=== PATIENT | female | born 1960 | race Caucasian/White ===

== ENCOUNTER 2017-02-28 17:53 | Inpatient (IN) | payer MEDICAID ==
[2017-02-28] MEDS ORDERED: Ondansetron 4 MG/2 ML SDV IVPUSH ONE ×2 (17:56→18:40)
[2017-02-28] MEDS ORDERED: HYDROmorphone 1 MG/ML Syringe IVPUSH ONE ×2 (17:56→18:40)
[2017-02-28] MEDS ORDERED: Sodium Chloride 0.9% 1,000 ML IV ONE ×3 (17:56→21:29)
[2017-02-28] MEDS ORDERED: Acetaminophen 500 MG Tab PO ONE (18:08)
[2017-02-28 18:35] LABS: CHLORIDE,CL 103 mmol/L (98-115); SODIUM,NA 141 mmol/L (136-145)
--- NOTE | 2017-02-28 18:36 | EDM.PDOC ---
ED HPI GENERAL MEDICAL PROBLEM - General Chief Complaint: Abdominal Pain Stated Complaint: nausea,vomiting,cramping Time Seen by Provider: 02/28/17 18:10 Source of Information: Reports: Patient, EMS History Limitations: Reports: Other (Patient's distress somewhat limits the H&P) - History of Present Illness INITIAL COMMENTS - FREE TEXT/NARRATIVE: Patient was fine this AM, then began to get abdominal pain and chills. Pain increased and is quite distressed with it on arrival. Pain located across upper abdomen. No bowel, bladder abnormalities. No CP, SOB. Fever of 102.7 axillary by EMS. Onset: Today, Gradual Duration: Hour(s): (8-10), Getting Worse Location: Reports: Abdomen Quality: Reports: Ache Severity: Severe Improves with: Reports: None Worsens with: Reports: None Associated Symptoms: Reports: Fever/Chills, Loss of Appetite, Nausea/Vomiting ( nausea, no vomiting). Denies: Cough, Headaches, Shortness of Breath Abdomen Pain Score (Numeric/FACES): 9 - Related Data Allergies Allergy/AdvReac Type Severity Reaction Status Date / Time sulfacetamide Allergy Vomiting Verified 02/28/17 18:29 [From Sulfamide] Home Meds: Home Meds Albuterol [Ventolin HFA] 2 puff INH Q2H PRN 02/28/17 [History] Allopurinol [Zyloprim] 450 mg PO DAILY 02/28/17 [History] Amoxicillin/Potassium Clav [Augmentin 875-125 Tablet] 1 each PO BID 02/28/17 [ History] Benzonatate [Tessalon Perles] 200 mg PO TID PRN 02/28/17 [History] DULoxetine HCl [Cymbalta] 60 mg PO DAILY 02/28/17 [History] Diclofenac Sodium [Voltaren] 75 mg PO BIDMEALS 02/28/17 [History] Gabapentin [Neurontin] 400 mg PO BEDTIME 02/28/17 [History] Hydroxychloroquine [Plaquenil] 200 mg PO BIDMEALS 02/28/17 [History] Losartan Potassium 50 mg PO DAILY 02/28/17 [History] Methotrexate 20 mg PO WEEKLY 02/28/17 [History] Ondansetron [Zofran] 4 mg PO Q6H PRN 02/28/17 [History] Pantoprazole Sodium [Protonix] 40 mg PO DAILY 02/28/17 [History] SitaGLIPtin [Januvia] 100 mg PO DAILY 02/28/17 [History] Thyroid,Pork [[place] Thyroid] 120 mg PO DAILY 02/28/17 [History] predniSONE [Prednisone] 2 mg PO DAILY 02/28/17 [History] predniSONE [Prednisone] 5 mg PO BIDMEALS 02/28/17 [History] tiZANidine HCl [Tizanidine HCl] 6 mg PO BEDTIME PRN 02/28/17 [History] traMADol [Ultram] 50 mg PO Q4H 02/28/17 [History] ED ROS GENERAL - Review of Systems Review Of Systems: See Below Constitutional: Reports: Fever, Chills HEENT: Reports: No Symptoms Respiratory: Reports: No Symptoms Cardiovascular: Reports: No Symptoms Endocrine: Reports: No Symptoms GI/Abdominal: Reports: Abdominal Pain, Decreased Appetite, Nausea : Reports: No Symptoms Musculoskeletal: Reports: No Symptoms Skin: Reports: No Symptoms Neurological: Reports: No Symptoms Psychiatric: Reports: No Symptoms Hematologic/Lymphatic: Reports: No Symptoms Immunologic: Reports: No Symptoms ED EXAM, GI/ABD - Physical Exam Exam: See Below Exam Limited By: Other (some limitations due to distress from symptoms) Eyes: Bilateral: Normal Appearance, EOMI Ears: Normal External Exam, Hearing Grossly Normal Nose: Normal Inspection, Normal Mucosa, No Blood Throat/Mouth: Normal Inspection, Normal Lips, Normal Oropharynx, No Airway Compromise Head: Atraumatic, Normocephalic Neck: Normal Inspection, Supple, Non-Tender, Full Range of Motion Respiratory/Chest: No Respiratory Distress, Lungs Clear, Normal Breath Sounds, No Accessory Muscle Use Cardiovascular: Normal Peripheral Pulses, Regular Rate, Rhythm, No Edema, No Murmur GI/Abdominal: Normal Bowel Sounds, Soft, No Organomegaly, No Distention, Tenderness (upper abdomen). No: Guarding, Rebound, Rigidity Back Exam: Normal Inspection, Full Range of Motion Extremities: Normal Capillary Refill, Increased Warmth (left leg), Redness ( left leg), Other (diabetic ulcer with necrosis on the instep of the left foot.) Neurological: Alert, Oriented, No Motor/Sensory Deficits Psychiatric: Other (distressed, moaning from pain) Skin Exam: Warm, Dry, Intact, Normal Color, No Rash Lymphatic: No Adenopathy Course - Vital Signs Last Recorded V/S: Last Vital Signs Temp 39.7 C H 02/28/17 18:30 Pulse 100 02/28/17 18:30 Resp 24 H 02/28/17 18:30 BP 130/49 L 02/28/17 18:30 Pulse Ox 95 02/28/17 18:30 - Orders/Labs/Meds Orders: Active Orders 24 hr Category Date Time Status Abdomen Pelvis wo Cont [CT] Stat Exams 02/28/17 17:56 Taken Chest 1V Frontal [CR] Stat Exams 02/28/17 18:46 Taken CULTURE BLOOD [BC] Stat Lab 02/28/17 18:05 Received CULTURE BLOOD [BC] Stat Lab 02/28/17 18:25 Received CULTURE WOUND [RM] Stat Lab 02/28/17 19:21 Uncollected Sodium Chloride 0.9% [Normal Saline] 1,000 ml Med 02/28/17 18:42 Active IV .BOLUS Blood Culture x2 Reflex Set [OM.PC] Stat Oth 02/28/17 17:56 Ordered Medication Orders Sodium Chloride (Normal Saline) 1,000 mls @ 999 mls/hr IV .BOLUS ONE Stop: 02/28/17 19:42 Labs: Laboratory Tests 02/28/17 02/28/17 02/28/17 Range/Units 18:05 18:05 18:05 WBC 11.3 H (5.0-10.0) 10^3/uL RBC 4.39 (3.80-5.50) 10^6/uL Hgb 13.2 (12.0-16.0) g/dL Hct 39.4 (37.0-47.0) % MCV 89.9 (82.0-92.0) fL MCH 30.2 (27.0-31.0) pg MCHC 33.6 (32.0-36.0) g/dL RDW 16.8 H (11.5-14.5) % Plt Count 211 (150-300) 10^3/uL MPV 8.2 (7.4-10.4) fL Neut % (Auto) 91.8 H (50.0-70.0) % Lymph % (Auto) 5.9 L (20.0-40.0) % Upson % (Auto) 1.6 L (2.0-8.0) % Eos % (Auto) 0.4 L (1.0-3.0) % Baso % (Auto) 0.3 (0.0-1.0) % Neut # (Auto) 10.4 H (2.5-7.0) 10^3/uL Lymph # (Auto) 0.7 L (1.0-4.0) 10^3/uL Upson # (Auto) 0.2 (0.1-0.8) 10^3/uL Eos # (Auto) 0.0 L (0.1-0.3) 10^3/uL Baso # (Auto) 0.0 (0.0-0.1) 10^3/uL Sodium 141 (136-145) mmol/L Potassium 3.1 L (3.3-5.3) mmol/L Chloride 103 (98-115) mmol/L Carbon Dioxide 26.9 (21.0-32.0) mmol/L BUN 17 (6-25) mg/dL Creatinine 0.82 (0.51-1.17) mg/dL Est Cr Clr Drug Dosing 63.37 mL/min Estimated GFR (MDRD) > 60 mL/min Glucose 128 H (70-110) mg/dL Lactic Acid 3.3 H (0.4-2.0) mmol/L Calcium 9.1 (8.7-10.3) mg/dL Total Bilirubin 0.7 (0.2-1.0) mg/dL AST 16 (15-37) U/L ALT 31 (12-78) U/L Alkaline Phosphatase 106 (46-116) IU/L Total Protein 6.6 (6.4-8.2) g/dL Albumin 3.56 (3.00-4.80) g/dL Lipase 171 (73-393) U/L Specimen Type Urine Color (YELLOW) Urine Appearance (CLEAR) Urine pH (5.0-9.0) Ur Specific [place] (1.005-1.030) Urine Protein (NEGATIVE) mg/dL Urine Glucose (UA) (NEGATIVE) mg/dL Urine Ketones (NEGATIVE) mg/dL Urine Occult Blood (NEGATIVE) Urine Nitrite (NEGATIVE) Urine Bilirubin (NEGATIVE) Urine Urobilinogen (0.2-1.0) E.U./dL Ur Leukocyte Esterase (NEGATIVE) Urine RBC /HPF Urine WBC /HPF Ur Epithelial Cells /LPF Amorphous Sediment (0/HPF) /HPF Urine Bacteria (NONE TO FEW) /HPF Urine Mucus (NEGATIVE) /LPF 02/28/17 Range/Units 18:50 WBC (5.0-10.0) 10^3/uL RBC (3.80-5.50) 10^6/uL Hgb (12.0-16.0) g/dL Hct (37.0-47.0) % MCV (82.0-92.0) fL MCH (27.0-31.0) pg MCHC (32.0-36.0) g/dL RDW (11.5-14.5) % Plt Count (150-300) 10^3/uL MPV (7.4-10.4) fL Neut % (Auto) (50.0-70.0) % Lymph % (Auto) (20.0-40.0) % Upson % (Auto) (2.0-8.0) % Eos % (Auto) (1.0-3.0) % Baso % (Auto) (0.0-1.0) % Neut # (Auto) (2.5-7.0) 10^3/uL Lymph # (Auto) (1.0-4.0) 10^3/uL Upson # (Auto) (0.1-0.8) 10^3/uL Eos # (Auto) (0.1-0.3) 10^3/uL Baso # (Auto) (0.0-0.1) 10^3/uL Sodium (136-145) mmol/L Potassium (3.3-5.3) mmol/L Chloride (98-115) mmol/L Carbon Dioxide (21.0-32.0) mmol/L BUN (6-25) mg/dL Creatinine (0.51-1.17) mg/dL Est Cr Clr Drug Dosing mL/min Estimated GFR (MDRD) mL/min Glucose (70-110) mg/dL Lactic Acid (0.4-2.0) mmol/L Calcium (8.7-10.3) mg/dL Total Bilirubin (0.2-1.0) mg/dL AST (15-37) U/L ALT (12-78) U/L Alkaline Phosphatase (46-116) IU/L Total Protein (6.4-8.2) g/dL Albumin (3.00-4.80) g/dL Lipase (73-393) U/L Specimen Type Urinfol Urine Color Yellow (YELLOW) Urine Appearance Clear (CLEAR) Urine pH 5.0 (5.0-9.0) Ur Specific [place]ili 1.010 (1.005-1.030) Urine Protein Negative (NEGATIVE) mg/dL Urine Glucose (UA) Negative (NEGATIVE) mg/dL Urine Ketones Negative (NEGATIVE) mg/dL Urine Occult Blood Negative (NEGATIVE) Urine Nitrite Negative (NEGATIVE) Urine Bilirubin Negative (NEGATIVE) Urine Urobilinogen 0.2 (0.2-1.0) E.U./dL Ur Leukocyte Esterase Negative (NEGATIVE) Urine RBC Not seen /HPF Urine WBC Not seen /HPF Ur Epithelial Cells Few /LPF Amorphous Sediment Few (0/HPF) /HPF Urine Bacteria Rare (NONE TO FEW) /HPF Urine Mucus Few H (NEGATIVE) /LPF Meds: Medications Generic Name Dose Route Start Last Admin Trade Name Freq PRN Reason Stop Dose Admin Sodium Chloride 1,000 mls @ 999 mls/hr 02/28/17 18:42 Normal Saline IV 02/28/17 19:42 .BOLUS ONE Discontinued Medications Generic Name Dose Route Start Last Admin Trade Name Freq PRN Reason Stop Dose Admin Acetaminophen 1,000 mg 02/28/17 18:08 02/28/17 18:10 Tylenol Extra Strength PO 02/28/17 18:09 1,000 mg ONETIME ONE Administration Hydromorphone HCl 1 mg 02/28/17 17:56 02/28/17 18:07 Dilaudid IVPUSH 02/28/17 17:57 1 mg ONETIME ONE Administration Hydromorphone HCl 0.5 mg 02/28/17 18:40 Dilaudid IVPUSH 02/28/17 18:41 ONETIME ONE Sodium Chloride 1,000 mls @ 999 mls/hr 02/28/17 17:56 02/28/17 18:23 Normal Saline IV 02/28/17 18:56 999 mls/hr .BOLUS ONE Administration Piperacillin/Tazobactam/ 50 mls @ 100 mls/hr 02/28/17 18:45 Dextrose 3.375 gm/ Premix IV 02/28/17 19:14 ONETIME ONE Ondansetron HCl 8 mg 02/28/17 17:56 02/28/17 18:07 Zofran IVPUSH 02/28/17 17:57 8 mg ONETIME ONE Administration Ondansetron HCl 4 mg 02/28/17 18:40 Zofran IVPUSH 02/28/17 18:41 ONETIME ONE - Re-Assessments/Exams Free Text/Narrative Re-Assessment/Exam: 02/28/17 18:44 Patient meets sepsis criteria. Continuing NS infusion to a total of 3800cc with in 3 hours Repeat lactic acid in 4 hours Blood cultures taken. Broad spectrum antibiotics begun Departure - Departure Time of Disposition: 19:22 Disposition: Admitted As Inpatient 66 Condition: Fair Clinical Impression: Cellulitis and abscess of left leg, Sepsis due to cellulitis Diabetic foot ulcer associated with type 2 diabetes mellitus Qualifiers: Diabetic foot ulcer location: midfoot Laterality: left Non-pressure ulcer stage : with fat layer exposed Qualified Code(s): E11.621 - Type 2 diabetes mellitus with foot ulcer; L97.422 - Non-pressure chronic ulcer of left heel and midfoot with fat layer exposed - Discharge Information Forms: ED Department Discharge - Problem List Review Problem List Initiated/Reviewed/Updated: No - My Orders Last 24 Hours: My Active Orders 02/28/17 17:56 Abdomen Pelvis wo Cont [CT] Stat Blood Culture x2 Reflex Set [OM.PC] Stat 02/28/17 18:05 CULTURE BLOOD [BC] Stat 02/28/17 18:25 CULTURE BLOOD [BC] Stat 02/28/17 18:42 Sodium Chloride 0.9% [Normal Saline] 1,000 ml IV .BOLUS 02/28/17 18:46 Chest 1V Frontal [CR] Stat 02/28/17 19:21 CULTURE WOUND [RM] Stat - Assessment/Plan Last 24 Hours: My Active Orders 02/28/17 17:56 Abdomen Pelvis wo Cont [CT] Stat Blood Culture x2 Reflex Set [OM.PC] Stat 02/28/17 18:05 CULTURE BLOOD [BC] Stat 02/28/17 18:25 CULTURE BLOOD [BC] Stat 02/28/17 18:42 Sodium Chloride 0.9% [Normal Saline] 1,000 ml IV .BOLUS 02/28/17 18:46 Chest 1V Frontal [CR] Stat 02/28/17 19:21 CULTURE WOUND [RM] Stat Assessment:: 1. left diabetic foot ulcer 2. Left leg cellulitis due to foot ulcer. Do NOT feel there is any necrotizing fascitis due to the lack of pain in the leg (no significant neuropathy) 3. Sepsis from cellulitis (lactic acid 3.3) 4. Abdominal pain, Nausea from sepsis Plan: 1. Admit for IV antibiotics and sepsis treatment 2. Fluid at 30cc/kg and boluses per lactic acid 3. Broad spectrum antibiotics, culture wound and blood 4. Monitor for hypotension not responsive to fluids - would then transfer to ICU care.
[2017-02-28] MEDS ORDERED: Piperacillin/Tazobactam/Dext 3.375 GM in Premix Bag 1 BAG IV ONE (18:45)
[2017-02-28] MEDS ORDERED: TIZANIDINE HCL 6 MG PO PRN (19:45)
[2017-02-28] MEDS ORDERED: Benzonatate 100 MG Cap PO PRN (19:45)
[2017-02-28] MEDS ORDERED: GABAPENTIN 400 MG PO SCH (21:00)
[2017-02-28] MEDS ORDERED: Sodium Chloride 0.9% 500 ML ONE (21:11)
[2017-02-28] MEDS: Albuterol HFA 18 Gm Inhaler INH PRN (21:13)
[2017-02-28] MEDS: traMADol 50 MG Tab PO SCH (21:14)
[2017-02-28] MEDS: Ondansetron 4 MG/2 ML SDV IVPUSH PRN (21:16)
[2017-02-28] MEDS: HYDROmorphone 1 MG/ML Syringe IVPUSH PRN (21:45)
[2017-03-01] MEDS: traMADol 50 MG Tab PO SCH ×4 (00:20→11:35)
[2017-03-01] MEDS: HYDROmorphone 1 MG/ML Syringe IVPUSH PRN ×2 (02:09→22:08)
[2017-03-01] MEDS: Piperacillin/Tazobactam/Dext 3.375 GM in Premix Bag 1 BAG IV SCH ×4 (02:09→21:17)
[2017-03-01] MEDS: Albuterol HFA 18 Gm Inhaler INH PRN ×2 (02:17→16:29)
[2017-03-01] MEDS ORDERED: Diclofenac Sodium 75 MG Tab.EC PO SCH (08:00)
[2017-03-01] MEDS: Hydroxychloroquine 200 MG Tab PO SCH ×2 (08:38→17:31)
[2017-03-01] MEDS: predniSONE 5 MG Tab PO SCH ×2 (08:38→17:32)
[2017-03-01] MEDS: predniSONE 1 MG Tab PO SCH (08:38)
[2017-03-01] MEDS: Pantoprazole 40 MG Tab.CR PO SCH (08:39)
[2017-03-01] MEDS: Losartan 50 MG Tab PO SCH (08:41)
[2017-03-01] MEDS ORDERED: DULOXETINE HCL 60 MG PO SCH (09:00)
[2017-03-01] MEDS ORDERED: ALLOPURINOL PO SCH (09:00)
[2017-03-01] MEDS ORDERED: THYROID PORK 120 MG PO SCH (09:00)
[2017-03-01] MEDS ORDERED: Non-Formulary Medication 1 Each (Sitagliptin [Januvia] 100 MG) PO SCH (09:00)
[2017-03-01] MEDS: Allopurinol 100 MG Tab PO SCH (09:16)
[2017-03-01] MEDS: DULoxetine 30 MG Cap PO SCH (09:16)
[2017-03-01] MEDS: Ondansetron 4 MG/2 ML SDV IVPUSH PRN ×2 (10:25→18:09)
[2017-03-01] MEDS: ARMOUR THYROID 120 MG PO SCH (10:42)
[2017-03-01] MEDS: DICLOFENAC SODIUM 75 MG PO SCH ×2 (10:42→17:32)
[2017-03-01] MEDS: Sodium Chloride 0.45% 1,000 ML IV SCH ×2 (10:43→19:38)
[2017-03-01] MEDS: Carboxymethylcellulose Sodium 0.5% Ophth Soln 15 ML Bottle EYEBOTH SCH ×3 (13:35→21:23)
[2017-03-01] MEDS: Acetaminophen 325 MG Tab PO PRN (17:32)
[2017-03-01] MEDS: traMADol 50 MG Tab PO PRN (19:00)
[2017-03-01] MEDS ORDERED: Ondansetron 4 MG/2 ML SDV IVPUSH ONE (20:27)
[2017-03-01] MEDS: tiZANidine 4 MG Tab PO SCH (21:22)
[2017-03-01] MEDS: Gabapentin 100 MG Cap PO SCH (21:22)
[2017-03-01] MEDS: Latanoprost 0.005% Ophth Soln 2.5 ML Bottle EYEBOTH SCH (21:28)
--- NOTE | 2017-03-01 21:31 | HP ---
PATIENT PROFILE: This is a 56-year-old female, who resides in the community of [place]. CHIEF COMPLAINT: Redness and warmth in the left lower leg, accompanied by chills. HISTORY OF PRESENT ILLNESS: This is a 56-year-old female, who presented to the emergency room yesterday afternoon with abdominal pain and chills. The pain increased and was quite distressed on arrival to the emergency room. She was found to have a left foot ulcer located on the medial aspect of her left foot in the arch, associated with diabetes mellitus type 2. There is also cellulitis of the left leg. There was also concern for sepsis due to cellulitis. She was admitted to the hospital and prescribed IV fluids, Zosyn, and vancomycin. Wound and blood cultures are pending. She was somewhat hypotensive in the emergency room, but this has corrected with IV fluids. PAST MEDICAL HISTORY: Includes: 1. Gout for which she is taking allopurinol. 2. She has a history of depression for which she is taking Cymbalta. 3. She has a history of diabetes for which she is taking Januvia. 4. She has a diabetic neuropathy for which she is taking Neurontin. 5. She has a history of fibromyalgia for which she is taking Cymbalta also in addition to depression. 6. She has a history of rheumatoid arthritis for which she is taking Plaquenil. She is also on daily dosing of prednisone. 7. She has a history of GERD for which she is taking pantoprazole. 8. She has a history of hypertension for which she is taking losartan. She has tramadol for pain relief. PAST SURGICAL HISTORY: . 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 She is concerned about missing work, however, is unable to work due to her hospitalization. MEDICATIONS: Are outlined in the HPI in addition to the listed medications and corresponding diagnosis, she is also on Augmentin 875 mg one p.o. b.i.d., Tessalon Perles p.r.n. for cough, diclofenac b.i.d., and tizanidine. ALLERGIES: . REVIEW OF SYSTEMS: CONSTITUTIONAL: She has had chills and a fever. HEENT: She denies any headache. No dysphagia. CARDIOVASCULAR: No chest pain or palpitations. RESPIRATORY: No shortness of breath, dyspnea, or orthopnea. GI: She did present with abdominal pain. No nausea, vomiting, diarrhea, or constipation. : No dysuria, hematuria, or urinary frequency. MUSCULOSKELETAL: She does have a history of fibromyalgia and has chronic pain associated with it as well as rheumatoid arthritis. INTEGUMENTARY: No jaundice, rashes, or lesions. NEUROLOGIC/PSYCHIATRIC: No syncope or paresthesias. ENDOCRINE: She has a history of diabetes mellitus. She denies any heat or cold intolerance. HEMATOLOGIC/LYMPHATIC: No anemia or easy bruising. ALLERGIC/IMMUNOLOGIC: No hives or recurrent infections. DERMATOLOGIC: She has a foot ulcer on the medial aspect of her left foot with cellulitis to the left lower extremity. PHYSICAL EXAMINATION: VITAL SIGNS: Temperature is 39.7 degrees Celsius, pulse 100, respirations 24, blood pressure 130/49, O2 saturation is 95%. SKIN: Warm and dry to touch. Somewhat warm. She does have a foot ulcer on the arch of her left foot, which measures approximately 3 cm in diameter. This is most likely the portal of entry for the cellulitis on the left lower leg, which seems to be receding according to the demarcation on the left lower extremity. HEENT: Head is normocephalic. Facies are symmetrical. External ear canals are clear. Tympanic membranes are pearly joyce. Eyes: PERRLA. Extraocular movements are intact. Visual bee are full. Nasal mucosa is pink and moist. There is no erythema or exudate in the posterior pharynx. NECK: Supple. There is no cervical lymphadenopathy. No jugular vein distention. No carotid bruits. LUNGS: Clear. No rales, wheezes, or rhonchi auscultated. CARDIAC: Reveals S1, S2 to be normal. Rate and rhythm are regular. No murmur, click, or gallop is auscultated. ABDOMEN: Soft, somewhat tender in the left lower quadrant possibly associated with left inguinal lymphadenopathy secondary to the cellulitis. EXTREMITIES: She moves all extremities with equal strength. There is a swelling of the right lower extremity. NEUROLOGIC: She is intact. She is alert and oriented to time, place, person, and self. Cranial nerves 2 through 12 are intact. Sensory, motor, and cerebellar function testing is deferred at this time. IMPRESSION: Diabetic foot ulcer associated with diabetes mellitus type 2. Left lower extremity approximately 3 cm in diameter with cellulitis of the left lower extremity, concern for sepsis. Lab results showed a white count of 11.3. Blood and wound cultures are pending. Sodium was 141, potassium was 3.1 and corrected itself to 3.3, without supplementation. BUN and creatinine on 17 and 0.82 respectively. GFR is greater than 60. The remainder of the CMP was within normal limits. Her lactic acid was 3.3 which is high, this did correct to 2.0 after IV hydration. UA was basically normal. We will continue her on vancomycin and Zosyn. The left leg will be soaked every 8 hours in Betadine wraps solution. We will continue all of her other same medications as ordered. She does have a quite complicated medical history that is definitely contributing factor for her hospitalization. I have spoken with Maria Esther Castillo, her primary care provider and attending physician, and she is aware of the patient's condition and her presence in the hospital. /[id number]/MODL
[2017-03-02] MEDS: Piperacillin/Tazobactam/Dext 3.375 GM in Premix Bag 1 BAG IV SCH ×4 (02:05→19:41)
[2017-03-02] MEDS: Albuterol HFA 18 Gm Inhaler INH PRN ×2 (04:15→19:37)
[2017-03-02] MEDS: Sodium Chloride 0.45% 1,000 ML IV SCH ×2 (06:04→16:35)
[2017-03-02] MEDS ORDERED: Atropine 0.1 MG/ML 10 ML Syringe IVPUSH PRN (08:53)
[2017-03-02] MEDS ORDERED: Lidocaine 2% 100 MG/5 ML Syringe IVPUSH PRN (08:53)
[2017-03-02] MEDS ORDERED: Nitroglycerin 0.4 MG Tab.SL SL PRN (08:53)
[2017-03-02] MEDS ORDERED: EPINEPHrine 1:10,000 1 MG/10 ML Syringe IVPUSH PRN (08:53)
[2017-03-02] MEDS: Allopurinol 100 MG Tab PO SCH (08:59)
[2017-03-02] MEDS: Carboxymethylcellulose Sodium 0.5% Ophth Soln 15 ML Bottle EYEBOTH SCH ×4 (09:00→20:21)
[2017-03-02] MEDS: Pantoprazole 40 MG Tab.CR PO SCH (09:01)
[2017-03-02] MEDS: ARMOUR THYROID 120 MG PO SCH (09:01)
[2017-03-02] MEDS: predniSONE 1 MG Tab PO SCH (09:01)
[2017-03-02] MEDS: DULoxetine 30 MG Cap PO SCH (09:01)
[2017-03-02] MEDS: Hydroxychloroquine 200 MG Tab PO SCH ×2 (09:02→17:39)
[2017-03-02] MEDS: Losartan 50 MG Tab PO SCH (09:02)
[2017-03-02] MEDS: predniSONE 5 MG Tab PO SCH ×2 (09:02→17:39)
[2017-03-02] MEDS: DICLOFENAC SODIUM 75 MG PO SCH ×2 (09:02→17:39)
--- NOTE | 2017-03-02 11:37 | HP ---
ADDENDUM: Addition to the H and P. ALLERGIES: Include sulfa. PAST SURGICAL HISTORY: Includes a hysterectomy with BSO, left foot surgery, two cerclages, and tonsillectomy. /[id number]/MODL
--- NOTE | 2017-03-02 12:52 | PN ---
03/02/2017PATIENT NAME: CAROLYN LUJAN This is a 56-year-old female, who was admitted to the hospital yesterday with a diabetic foot ulcer on the arch of her left foot with associated cellulitis and concern for sepsis. On admission, her white blood cell count was 11.3 and increased to 13.0. Today, her white count has improved to 9.7. Her admission hemoglobin was 13.2 and has declined to 10.2. We will add iron studies onto her lab work today. Potassium initially was low at 3.1. This has normalized at 3.5 without supplementation. BUN and creatinine 21 and 1.05 with a GFR of 54. She has hypocalcemia with a serum calcium of 8.2. Her albumin is low at 2.15. Corrected calcium is 9.68. She has been afebrile since admission. Her chief complaint today is that of nausea. She does have a p.r.n. dosing for Zofran. She has not been up and about and needs to be more ambulatory. She reports she gets nauseated when she moves around. There was concern last evening by one of the nurses caring for the patient that she had a coolness and pallor of the left foot. Dorsalis pedis and posterior tibial pulses are intact. A warm pack was applied to the foot and this has improved. PHYSICAL EXAMINATION: VITAL SIGNS: Temp is 98.3, pulse is 92, respirations 20, blood pressure 110/55, with an entry this morning at 6 o'clock for blood pressure of 90/42. Oxygen saturation 97% on 2 L of oxygen. CARDIAC: Reveals S1 and S2 to be normal. Rate and rhythm are regular. No murmur, click, or gallop is auscultated. LUNGS: Clear. EXTREMITIES: Examination of the left lower extremity, she does have a 3 cm raised diabetic foot ulcer on the arch of her left foot medial aspect. There is erythema of the ankle. This is receded since yesterday where it is marked just below the knee. There is pallor of the left foot as well, however, it is warm to touch. Dorsalis pedis and posterior tibial pulses are intact to the left foot. IMPRESSION: 1. Diabetic foot ulcer with associated cellulitis and concern for sepsis. She is covered with vancomycin as well as Zosyn. Initial blood cultures grew gram-positive cocci. Sensitivities are pending. She does seem to be improving. 2. Immobility. This will complicate her discharge if she is not more ambulatory. I did stress to her the importance of getting out of bed moving around. She states she is nauseated. We will try to manage her nausea, so she can be more mobile. PT consultation. 3. Anemia, etiology unclear. We will add iron studies to the lab work that was drawn this morning. We will continue to monitor closely and she will be evaluated in the morning by Dr. Maria Esther Park. 4. DVT prophylaxis is addressed to day. Lovenox will be initiated. /[id number]/MODL MTDD
[2017-03-02] MEDS ORDERED: Enoxaparin 40 MG/0.4 ML Syringe SUBCUT SCH (15:00)
[2017-03-02] MEDS: Acetaminophen 325 MG Tab PO PRN (19:38)
[2017-03-02] MEDS: Enoxaparin 40 MG/0.4 ML Syringe SUBCUT SCH (20:22)
[2017-03-02] MEDS: Latanoprost 0.005% Ophth Soln 2.5 ML Bottle EYEBOTH SCH (20:22)
[2017-03-02] MEDS: Gabapentin 100 MG Cap PO SCH (20:22)
[2017-03-02] MEDS: tiZANidine 4 MG Tab PO SCH (20:22)
[2017-03-03] MEDS: Sodium Chloride 0.45% 1,000 ML IV SCH (01:04)
[2017-03-03] MEDS: Piperacillin/Tazobactam/Dext 3.375 GM in Premix Bag 1 BAG IV SCH ×2 (01:05→07:54)
[2017-03-03] MEDS: predniSONE 5 MG Tab PO SCH ×2 (07:57→17:48)
[2017-03-03] MEDS: Hydroxychloroquine 200 MG Tab PO SCH ×2 (07:57→17:48)
[2017-03-03] MEDS: DICLOFENAC SODIUM 75 MG PO SCH ×2 (07:58→17:49)
[2017-03-03] MEDS: DULoxetine 30 MG Cap PO SCH (07:59)
[2017-03-03] MEDS: Losartan 50 MG Tab PO SCH (07:59)
[2017-03-03] MEDS: Enoxaparin 40 MG/0.4 ML Syringe SUBCUT SCH ×2 (08:00→20:46)
[2017-03-03] MEDS: predniSONE 1 MG Tab PO SCH (08:00)
[2017-03-03] MEDS: ARMOUR THYROID 120 MG PO SCH (08:01)
[2017-03-03] MEDS: Allopurinol 100 MG Tab PO SCH (08:01)
[2017-03-03] MEDS: Carboxymethylcellulose Sodium 0.5% Ophth Soln 15 ML Bottle EYEBOTH SCH ×4 (08:01→20:45)
[2017-03-03] MEDS: Pantoprazole 40 MG Tab.CR PO SCH (08:01)
--- NOTE | 2017-03-03 08:57 | PCM.PN ---
- General Info Date of Service: 03/03/17 - Review of Systems Systems Review Comment:: Slime was admitted inpatient on 02/28/17 with LLE cellulitis and criteria meeting sepsis. She was started on vancomycin and zosyn. She has a left foot wound, chronic, that she has treated by podiatry at [facility] in [place], [place] but she does not follow the weight bearing restrictions and so this has not healed. Blood cultures were coag neg staph on aerobic only, anaerobic with no growth. Wound culture heavy growth of MSSA. She states the swelling and redness in her leg is better. She has been ambulatory to the bathroom. She states her appetite is better today. - Patient Data Vitals - most recent: Last Vital Signs Temp 96.5 F 03/03/17 06:44 Pulse 68 03/03/17 06:44 Resp 22 H 03/03/17 06:44 BP 115/60 03/03/17 07:59 Pulse Ox 97 03/03/17 06:44 Weight - most recent: 277 lb 12.8 oz I&O - last 24 hours: Intake & Output 03/02/17 03/03/17 03/03/17 22:59 06:59 14:59 Intake Total 1799 1280 Output Total 1300 300 Balance 499 980 Lab Results last 24 hrs: Laboratory Results - last 24 hr 03/02/17 03/02/17 03/02/17 Range/Units 06:50 09:30 17:36 WBC (5.0-10.0) 10^3/uL RBC (3.80-5.50) 10^6/uL Hgb (12.0-16.0) g/dL Hct (37.0-47.0) % MCV (82.0-92.0) fL MCH (27.0-31.0) pg MCHC (32.0-36.0) g/dL RDW (11.5-14.5) % Plt Count (150-300) 10^3/uL MPV (7.4-10.4) fL Neut % (Auto) (50.0-70.0) % Lymph % (Auto) (20.0-40.0) % [place] % (Auto) (2.0-8.0) % Eos % (Auto) (1.0-3.0) % Baso % (Auto) (0.0-1.0) % Neut # (Auto) (2.5-7.0) 10^3/uL Lymph # (Auto) (1.0-4.0) 10^3/uL [place] # (Auto) (0.1-0.8) 10^3/uL Eos # (Auto) (0.1-0.3) 10^3/uL Baso # (Auto) (0.0-0.1) 10^3/uL Sodium (136-145) mmol/L Potassium (3.3-5.3) mmol/L Chloride (98-115) mmol/L Carbon Dioxide (21.0-32.0) mmol/L BUN (6-25) mg/dL Creatinine 1.02 (0.51-1.17) mg/dL Est Cr Clr Drug Dosing 53.18 mL/min Estimated GFR (MDRD) 56 mL/min Glucose (70-110) mg/dL POC Glucose 150 H (74-106) mg/dl Calcium (8.7-10.3) mg/dL Iron <10 L (35-145) ug/dL TIBC N/a H (261-478) ug/dL Transferrin % Sat N/a H (20.0-50.0) % Ferritin 169 (11-307) ng/mL Total Bilirubin (0.2-1.0) mg/dL AST (15-37) U/L ALT (12-78) U/L Alkaline Phosphatase (46-116) IU/L Total Protein (6.4-8.2) g/dL Albumin (3.00-4.80) g/dL Vancomycin Trough 14.1 (10-20) ug/mL 03/03/17 03/03/17 03/03/17 Range/Units 06:05 07:10 07:10 WBC 7.7 (5.0-10.0) 10^3/uL RBC 3.47 L (3.80-5.50) 10^6/uL Hgb 10.1 L (12.0-16.0) g/dL Hct 31.2 L (37.0-47.0) % MCV 89.9 (82.0-92.0) fL MCH 29.2 (27.0-31.0) pg MCHC 32.5 (32.0-36.0) g/dL RDW 16.8 H (11.5-14.5) % Plt Count 144 L (150-300) 10^3/uL MPV 8.2 (7.4-10.4) fL Neut % (Auto) 87.3 H (50.0-70.0) % Lymph % (Auto) 7.4 L (20.0-40.0) % [place] % (Auto) 4.0 (2.0-8.0) % Eos % (Auto) 1.0 (1.0-3.0) % Baso % (Auto) 0.3 (0.0-1.0) % Neut # (Auto) 6.7 (2.5-7.0) 10^3/uL Lymph # (Auto) 0.6 L (1.0-4.0) 10^3/uL [place] # (Auto) 0.3 (0.1-0.8) 10^3/uL Eos # (Auto) 0.1 (0.1-0.3) 10^3/uL Baso # (Auto) 0.0 (0.0-0.1) 10^3/uL Sodium 139 (136-145) mmol/L Potassium 4.1 (3.3-5.3) mmol/L Chloride 106 (98-115) mmol/L Carbon Dioxide 25.9 (21.0-32.0) mmol/L BUN 18 (6-25) mg/dL Creatinine 1.00 (0.51-1.17) mg/dL Est Cr Clr Drug Dosing 54.24 mL/min Estimated GFR (MDRD) 57 mL/min Glucose 114 H (70-110) mg/dL POC Glucose 116 H (74-106) mg/dl Calcium 8.3 L (8.7-10.3) mg/dL Iron (35-145) ug/dL TIBC (261-478) ug/dL Transferrin % Sat (20.0-50.0) % Ferritin (11-307) ng/mL Total Bilirubin 0.4 (0.2-1.0) mg/dL AST 20 (15-37) U/L ALT 26 (12-78) U/L Alkaline Phosphatase 82 (46-116) IU/L Total Protein 5.5 L (6.4-8.2) g/dL Albumin 2.21 L (3.00-4.80) g/dL Vancomycin Trough (10-20) ug/mL Med Orders - Current: Current Medications Acetaminophen (Tylenol) 650 mg PO Q6H PRN PRN Reason: Pain Last Admin: 03/02/17 19:38 Dose: 650 mg Albuterol (Ventolin Hfa) 0 gm INH Q2H PRN PRN Reason: Shortness of Breath Last Admin: 03/02/17 19:37 Dose: 2 inhalation Allopurinol (Zyloprim) 450 mg PO DAILY [facility] Last Admin: 03/03/17 08:01 Dose: 450 mg Artificial Tears (Refresh Tears 0.5%) 1 ml EYEBOTH QID [facility] Last Admin: 03/03/17 08:01 Dose: 1 drop Benzonatate (Tessalon Perles) 200 mg PO TID PRN PRN Reason: Cough Duloxetine HCl (Cymbalta) 60 mg PO DAILY [facility] Last Admin: 03/03/17 07:59 Dose: 60 mg Enoxaparin Sodium (Lovenox) 40 mg SUBCUT Q12H [facility] Last Admin: 03/03/17 08:00 Dose: 40 mg Gabapentin (Neurontin) 400 mg PO BEDTIME [facility] Last Admin: 03/02/17 20:22 Dose: 400 mg Hydroxychloroquine Sulfate (Plaquenil) 200 mg PO BIDMEALS [facility] Last Admin: 03/03/17 07:57 Dose: 200 mg Levofloxacin/Dextrose 500 mg/ (Premix) 100 mls @ 100 mls/hr IV Q24H [facility] Latanoprost (Xalatan 0.005% Ophth Soln) 0 ml EYEBOTH BEDTIME [facility] Last Admin: 03/02/17 20:22 Dose: 1 drop Losartan Potassium (Cozaar) 50 mg PO DAILY [facility] Last Admin: 03/03/17 07:59 Dose: 50 mg Ondansetron HCl (Zofran) 4 mg IVPUSH Q4H PRN PRN Reason: Nausea/Vomiting Last Admin: 03/01/17 18:09 Dose: 4 mg Pantoprazole Sodium (Protonix) 40 mg PO DAILY [facility] Last Admin: 03/03/17 08:01 Dose: 40 mg Ptom [place] (Thyroid 120mg Tablet) 1 each PO DAILY [facility] Last Admin: 03/03/17 08:01 Dose: 1 each Ptom Diclofenac (Sodium 75mg Tablet) 1 each PO BIDMEALS [facility] Last Admin: 03/03/17 07:58 Dose: 1 each Prednisone (Prednisone) 5 mg PO BIDMEALS [facility] Last Admin: 03/03/17 07:57 Dose: 5 mg Prednisone (Prednisone) 2 mg PO DAILY [facility] Last Admin: 03/03/17 08:00 Dose: 2 mg Sitagliptin Phosphate (Januvia) 50 mg PO DAILY [facility] Last Admin: 03/03/17 07:59 Dose: 50 mg Tizanidine HCl (Zanaflex) 6 mg PO BEDTIME [facility] Last Admin: 03/02/17 20:22 Dose: 6 mg Tramadol HCl (Ultram) 50 mg PO Q4H PRN PRN Reason: Pain Last Admin: 03/01/17 19:00 Dose: 50 mg Discontinued Medications Acetaminophen (Tylenol Extra Strength) 1,000 mg PO ONETIME ONE Stop: 02/28/17 18:09 Last Admin: 02/28/17 18:10 Dose: 1,000 mg Atropine Sulfate (Atropine 0.1 Mg/Ml) 0 mg IVPUSH ASDIRECTED PRN PRN Reason: Heart Diclofenac Sodium (Voltaren) 75 mg PO BIDMEALS [facility] Last Admin: 03/01/17 10:31 Dose: Not Given Enoxaparin Sodium (Lovenox) 40 mg SUBCUT Q12H [facility] Last Admin: 03/02/17 16:15 Dose: 40 mg Epinephrine HCl (Epinephrine 1:10,000) 1 mg IVPUSH ASDIRECTED PRN PRN Reason: Heart Hydromorphone HCl (Dilaudid) 1 mg IVPUSH ONETIME ONE Stop: 02/28/17 17:57 Last Admin: 02/28/17 18:07 Dose: 1 mg Hydromorphone HCl (Dilaudid) 0.5 mg IVPUSH ONETIME ONE Stop: 02/28/17 18:41 Last Admin: 02/28/17 21:47 Dose: Not Given Hydromorphone HCl (Dilaudid) 1 mg IVPUSH Q4H PRN PRN Reason: Pain Last Admin: 03/01/17 22:08 Dose: 1 mg Sodium Chloride (Normal Saline) 1,000 mls @ 999 mls/hr IV .BOLUS ONE Stop: 02/28/17 18:56 Last Admin: 02/28/17 18:23 Dose: 999 mls/hr Sodium Chloride (Normal Saline) 1,000 mls @ 999 mls/hr IV .BOLUS ONE Stop: 02/28/17 19:42 Last Admin: 02/28/17 19:42 Dose: 999 mls/hr Piperacillin/Tazobactam/ (Dextrose 3.375 gm/ Premix) 50 mls @ 100 mls/hr IV ONETIME ONE Stop: 02/28/17 19:14 Last Admin: 02/28/17 19:28 Dose: 100 mls/hr Piperacillin/Tazobactam/ (Dextrose 3.375 gm/ Premix) 50 mls @ 100 mls/hr IV Q6H [facility] Last Admin: 03/03/17 07:54 Dose: 100 mls/hr Vancomycin HCl 1.25 gm/ Sodium (Chloride) 250 mls @ 167 mls/hr IV Q24H [facility] Last Admin: 02/28/17 22:25 Dose: 167 mls/hr Sodium Chloride (Normal Saline) Confirm Administered Dose 500 mls @ as directed .ROUTE .STK-MED ONE Stop: 02/28/17 21:12 Last Admin: 02/28/17 21:20 Dose: Not Given Sodium Chloride (Normal Saline) 1,000 mls @ 999 mls/hr IV .BOLUS ONE Stop: 02/28/17 22:29 Last Admin: 02/28/17 21:50 Dose: 999 mls/hr Sodium Chloride (Sodium Chloride 0.45%) 1,000 mls @ 150 mls/hr IV ASDIRECTED [facility] Last Admin: 03/03/17 01:04 Dose: 150 mls/hr Vancomycin HCl 1.25 gm/ Sodium (Chloride) 250 mls @ 167 mls/hr IV Q12H [facility] Last Admin: 03/01/17 11:32 Dose: 167 mls/hr Vancomycin HCl 1.25 gm/ Sodium (Chloride) 250 mls @ 167 mls/hr IV Q12H [facility] Vancomycin HCl 1.25 gm/ Sodium (Chloride) 250 mls @ 167 mls/hr IV Q12H [facility] Last Admin: 03/02/17 22:06 Dose: 167 mls/hr Lidocaine HCl (Xylocaine 2%) 0 mg IVPUSH ASDIRECTED PRN PRN Reason: Heart Nitroglycerin (Nitrostat) 0.4 mg SL ASDIRECTED PRN PRN Reason: Heart Non-Formulary Medication (Allopurinol [Zyloprim]) 450 mg PO DAILY [facility] Non-Formulary Medication (Duloxetine Hcl [Cymbalta]) 60 mg PO DAILY [facility] Non-Formulary Medication (Gabapentin [Neurontin]) 400 mg PO BEDTIME [facility] Last Admin: 02/28/17 22:30 Dose: Not Given Non-Formulary Medication (Sitagliptin [Januvia]) 100 mg PO DAILY [facility] Non-Formulary Medication (Thyroid,Pork [[place] Thyroid]) 120 mg PO DAILY [facility] Non-Formulary Medication (Tizanidine Hcl [Tizanidine Hcl]) 6 mg PO BEDTIME PRN PRN Reason: Muscle Spasm Ondansetron HCl (Zofran) 8 mg IVPUSH ONETIME ONE Stop: 02/28/17 17:57 Last Admin: 02/28/17 18:07 Dose: 8 mg Ondansetron HCl (Zofran) 4 mg IVPUSH ONETIME ONE Stop: 02/28/17 18:41 Last Admin: 02/28/17 19:29 Dose: 4 mg Ondansetron HCl (Zofran) 4 mg IVPUSH ONETIME ONE Stop: 03/01/17 20:28 Last Admin: 03/01/17 21:16 Dose: 4 mg Tramadol HCl (Ultram) 50 mg PO Q4H [facility] Last Admin: 03/01/17 11:35 Dose: Not Given Vancomycin HCl (Pharmacy To Dose - Vancomycin) 0 dose .XX ASDIRECTED [facility] - Exam General: alert, oriented, cooperative, no acute distress Lungs: Clear to auscultation, Normal respiratory effort Cardiovascular: Regular Rate, Regular Rhythm, No Murmurs Abdomen: bowel sounds present Extremities: edema, other (Left lower extremity has some residual erythema that is reportedly very improved from admission. She also has a ulceration on her left foot, no evidence of purulent drainage from this area.) - Problem List & Annotations (1) Cellulitis and abscess of left leg SNOMED Code(s): 739734386 Code(s): L03.116 - CELLULITIS OF LEFT LOWER LIMB; L02.416 - CUTANEOUS ABSCESS OF LEFT LOWER LIMB Status: Acute Current Visit: Yes (2) Diabetic foot ulcer associated with type 2 diabetes mellitus SNOMED Code(s): 365638927 Code(s): E11.621 - TYPE 2 DIABETES MELLITUS WITH FOOT ULCER; L97.509 - NON- PRESSURE CHRONIC ULCER OTH PRT UNSP FOOT W UNSP SEVERITY Status: Acute Current Visit: Yes Qualifiers: Diabetic foot ulcer location: midfoot Laterality: left Non-pressure ulcer stage: with fat layer exposed Qualified Code(s): E11.621 - Type 2 diabetes mellitus with foot ulcer; L97.422 - Non-pressure chronic ulcer of left heel and midfoot with fat layer exposed - Problem List Review Problem List Initiated/Reviewed/Updated: Yes - My Orders Last 24 Hours: My Active Orders 03/02/17 19:32 Cardiac Monitoring Discontinue [RC] Click To Edit 03/03/17 09:00 Levofloxacin/Dextrose 5%-Water [Levaquin in D5W 500 MG/100 ML] 500 mg Premix Bag 1 bag IV Q24H 03/03/17 21:30 VANCOMYCIN TROUGH [CHEM] Routine - Plan Plan:: Based on culture results will switch to levofloxacin 500 mg IV through the weekend. If continued improvement then will discharge to home on Monday () with follow-up with podiatry and antibiotics to complete a 14 day course. She is in agreement with this plan of care.
[2017-03-03] MEDS: Levofloxacin/Dextrose 5%-Water 100 ML IV SCH (09:14)
[2017-03-03] MEDS: Albuterol HFA 18 Gm Inhaler INH PRN ×2 (09:17→20:44)
[2017-03-03] MEDS: Sodium Chloride 0.9% 100 ML IV PRN (09:17)
[2017-03-03] MEDS: Latanoprost 0.005% Ophth Soln 2.5 ML Bottle EYEBOTH SCH (20:45)
[2017-03-03] MEDS: tiZANidine 4 MG Tab PO SCH (20:45)
[2017-03-03] MEDS: Gabapentin 100 MG Cap PO SCH (20:45)
[2017-03-03] MEDS: Acetaminophen 325 MG Tab PO PRN (23:54)
[2017-03-04] MEDS: DICLOFENAC SODIUM 75 MG PO SCH ×2 (09:11→19:20)
[2017-03-04] MEDS: Hydroxychloroquine 200 MG Tab PO SCH ×2 (09:11→19:20)
[2017-03-04] MEDS: predniSONE 5 MG Tab PO SCH ×2 (09:11→19:20)
[2017-03-04] MEDS: Enoxaparin 40 MG/0.4 ML Syringe SUBCUT SCH ×2 (09:12→20:42)
[2017-03-04] MEDS: Losartan 50 MG Tab PO SCH (09:12)
[2017-03-04] MEDS: DULoxetine 30 MG Cap PO SCH (09:14)
[2017-03-04] MEDS: Allopurinol 100 MG Tab PO SCH (09:14)
[2017-03-04] MEDS: ARMOUR THYROID 120 MG PO SCH (09:14)
[2017-03-04] MEDS: predniSONE 1 MG Tab PO SCH (09:14)
[2017-03-04] MEDS: Pantoprazole 40 MG Tab.CR PO SCH (09:14)
[2017-03-04] MEDS: Carboxymethylcellulose Sodium 0.5% Ophth Soln 15 ML Bottle EYEBOTH SCH ×4 (09:18→20:40)
[2017-03-04] MEDS: Albuterol HFA 18 Gm Inhaler INH PRN ×3 (09:21→19:21)
[2017-03-04] MEDS: Levofloxacin/Dextrose 5%-Water 100 ML IV SCH (09:22)
[2017-03-04] MEDS: Acetaminophen 325 MG Tab PO PRN (14:22)
--- NOTE | 2017-03-04 15:22 | PCM.PN ---
- General Info Date of Service: 03/04/17 Admission Dx/Problem (Free Text): Left foot and leg cellulitis. Functional Status: Reports: pain controlled, tolerating diet - Review of Systems General: Denies: Fever HEENT: Reports: sinus congestion (thinks she is getting a sinus infection), other (cold sore on lower lip; she usually uses Abreva but would like Valtrex if we don't have Abreva in house.). Denies: sore throat Pulmonary: Denies: shortness of breath Cardiovascular: Reports: No Symptoms Gastrointestinal: Reports: No symptoms Genitourinary: Denies: dysuria, flank pain Musculoskeletal: Reports: no symptoms Skin: Reports: other (has noticed the erythema/cellulitis is moving up her left leg again today.) Neurological: Denies: Confusion, Dizziness, Headache Psychiatric: Denies: confusion - Patient Data Vitals - most recent: Last Vital Signs Temp 98.0 F 03/04/17 06:26 Pulse 70 03/04/17 06:26 Resp 20 03/04/17 06:26 BP 114/70 03/04/17 09:12 Pulse Ox 97 03/04/17 06:26 Weight - most recent: 277 lb 12.8 oz I&O - last 24 hours: Intake & Output 03/04/17 03/04/17 03/04/17 06:59 14:59 22:59 Intake Total 100 840 Balance 100 840 Lab Results last 24 hrs: Laboratory Results - last 24 hr 03/03/17 03/04/17 03/04/17 Range/Units 17:42 06:06 07:10 WBC 5.8 (5.0-10.0) 10^3/uL RBC 3.49 L (3.80-5.50) 10^6/uL Hgb 10.5 L (12.0-16.0) g/dL Hct 31.1 L (37.0-47.0) % MCV 89.0 (82.0-92.0) fL MCH 30.1 (27.0-31.0) pg MCHC 33.9 (32.0-36.0) g/dL RDW 16.8 H (11.5-14.5) % Plt Count 152 (150-300) 10^3/uL MPV 8.6 (7.4-10.4) fL Neut % (Auto) 74.9 H (50.0-70.0) % Lymph % (Auto) 14.2 L (20.0-40.0) % [place] % (Auto) 8.3 H (2.0-8.0) % Eos % (Auto) 2.1 (1.0-3.0) % Baso % (Auto) 0.5 (0.0-1.0) % Neut # (Auto) 4.4 (2.5-7.0) 10^3/uL Lymph # (Auto) 0.8 L (1.0-4.0) 10^3/uL [place] # (Auto) 0.5 (0.1-0.8) 10^3/uL Eos # (Auto) 0.1 (0.1-0.3) 10^3/uL Baso # (Auto) 0.0 (0.0-0.1) 10^3/uL POC Glucose 108 H 116 H (74-106) mg/dl Med Orders - Current: Current Medications Acetaminophen (Tylenol) 650 mg PO Q6H PRN PRN Reason: Pain Last Admin: 03/04/17 14:22 Dose: 650 mg Albuterol (Ventolin Hfa) 0 gm INH Q2H PRN PRN Reason: Shortness of Breath Last Admin: 03/04/17 14:08 Dose: 2 inhalation Allopurinol (Zyloprim) 450 mg PO DAILY [facility] Last Admin: 03/04/17 09:14 Dose: 450 mg Artificial Tears (Refresh Tears 0.5%) 1 ml EYEBOTH QID [facility] Last Admin: 03/04/17 14:07 Dose: 1 drop Benzonatate (Tessalon Perles) 200 mg PO TID PRN PRN Reason: Cough Duloxetine HCl (Cymbalta) 60 mg PO DAILY [facility] Last Admin: 03/04/17 09:14 Dose: 60 mg Enoxaparin Sodium (Lovenox) 40 mg SUBCUT Q12H [facility] Last Admin: 03/04/17 09:12 Dose: 40 mg Gabapentin (Neurontin) 400 mg PO BEDTIME [facility] Last Admin: 03/03/17 20:45 Dose: 400 mg Hydroxychloroquine Sulfate (Plaquenil) 200 mg PO BIDMEALS [facility] Last Admin: 03/04/17 09:11 Dose: 200 mg Levofloxacin/Dextrose (Levaquin In D5w 500 Mg/100 Ml) 100 mls @ 100 mls/hr IV Q24H [facility] Last Admin: 03/04/17 09:22 Dose: 100 mls/hr Sodium Chloride (Normal Saline) 100 mls @ 20 mls/hr IV DAILY@1000 PRN PRN Reason: flush Last Admin: 03/03/17 09:17 Dose: 20 mls/hr Latanoprost (Xalatan 0.005% Ophth Soln) 0 ml EYEBOTH BEDTIME [facility] Last Admin: 03/03/17 20:45 Dose: 1 drop Losartan Potassium (Cozaar) 50 mg PO DAILY [facility] Last Admin: 03/04/17 09:12 Dose: 50 mg Ondansetron HCl (Zofran) 4 mg IVPUSH Q4H PRN PRN Reason: Nausea/Vomiting Last Admin: 03/01/17 18:09 Dose: 4 mg Pantoprazole Sodium (Protonix) 40 mg PO DAILY [facility] Last Admin: 03/04/17 09:14 Dose: 40 mg Ptom [place] (Thyroid 120mg Tablet) 1 each PO DAILY [facility] Last Admin: 03/04/17 09:14 Dose: 1 each Ptom Diclofenac (Sodium 75mg Tablet) 1 each PO BIDMEALS [facility] Last Admin: 03/04/17 09:11 Dose: 1 each Prednisone (Prednisone) 5 mg PO BIDMEALS [facility] Last Admin: 03/04/17 09:11 Dose: 5 mg Prednisone (Prednisone) 2 mg PO DAILY [facility] Last Admin: 03/04/17 09:14 Dose: 2 mg Sitagliptin Phosphate (Januvia) 50 mg PO DAILY [facility] Last Admin: 03/04/17 09:12 Dose: 50 mg Tizanidine HCl (Zanaflex) 6 mg PO BEDTIME [facility] Last Admin: 03/03/17 20:45 Dose: 6 mg Tramadol HCl (Ultram) 50 mg PO Q4H PRN PRN Reason: Pain Last Admin: 03/01/17 19:00 Dose: 50 mg Discontinued Medications Acetaminophen (Tylenol Extra Strength) 1,000 mg PO ONETIME ONE Stop: 02/28/17 18:09 Last Admin: 02/28/17 18:10 Dose: 1,000 mg Atropine Sulfate (Atropine 0.1 Mg/Ml) 0 mg IVPUSH ASDIRECTED PRN PRN Reason: Heart Diclofenac Sodium (Voltaren) 75 mg PO BIDMEALS [facility] Last Admin: 03/01/17 10:31 Dose: Not Given Enoxaparin Sodium (Lovenox) 40 mg SUBCUT Q12H [facility] Last Admin: 03/02/17 16:15 Dose: 40 mg Epinephrine HCl (Epinephrine 1:10,000) 1 mg IVPUSH ASDIRECTED PRN PRN Reason: Heart Hydromorphone HCl (Dilaudid) 1 mg IVPUSH ONETIME ONE Stop: 02/28/17 17:57 Last Admin: 02/28/17 18:07 Dose: 1 mg Hydromorphone HCl (Dilaudid) 0.5 mg IVPUSH ONETIME ONE Stop: 02/28/17 18:41 Last Admin: 02/28/17 21:47 Dose: Not Given Hydromorphone HCl (Dilaudid) 1 mg IVPUSH Q4H PRN PRN Reason: Pain Last Admin: 03/01/17 22:08 Dose: 1 mg Sodium Chloride (Normal Saline) 1,000 mls @ 999 mls/hr IV .BOLUS ONE Stop: 02/28/17 18:56 Last Admin: 02/28/17 18:23 Dose: 999 mls/hr Sodium Chloride (Normal Saline) 1,000 mls @ 999 mls/hr IV .BOLUS ONE Stop: 02/28/17 19:42 Last Admin: 02/28/17 19:42 Dose: 999 mls/hr Piperacillin/Tazobactam/ (Dextrose 3.375 gm/ Premix) 50 mls @ 100 mls/hr IV ONETIME ONE Stop: 02/28/17 19:14 Last Admin: 02/28/17 19:28 Dose: 100 mls/hr Piperacillin/Tazobactam/ (Dextrose 3.375 gm/ Premix) 50 mls @ 100 mls/hr IV Q6H [facility] Last Admin: 03/03/17 07:54 Dose: 100 mls/hr Vancomycin HCl 1.25 gm/ Sodium (Chloride) 250 mls @ 167 mls/hr IV Q24H [facility] Last Admin: 02/28/17 22:25 Dose: 167 mls/hr Sodium Chloride (Normal Saline) Confirm Administered Dose 500 mls @ as directed .ROUTE .STK-MED ONE Stop: 02/28/17 21:12 Last Admin: 02/28/17 21:20 Dose: Not Given Sodium Chloride (Normal Saline) 1,000 mls @ 999 mls/hr IV .BOLUS ONE Stop: 02/28/17 22:29 Last Admin: 02/28/17 21:50 Dose: 999 mls/hr Sodium Chloride (Sodium Chloride 0.45%) 1,000 mls @ 150 mls/hr IV ASDIRECTED [facility] Last Admin: 03/03/17 01:04 Dose: 150 mls/hr Vancomycin HCl 1.25 gm/ Sodium (Chloride) 250 mls @ 167 mls/hr IV Q12H [facility] Last Admin: 03/01/17 11:32 Dose: 167 mls/hr Vancomycin HCl 1.25 gm/ Sodium (Chloride) 250 mls @ 167 mls/hr IV Q12H [facility] Vancomycin HCl 1.25 gm/ Sodium (Chloride) 250 mls @ 167 mls/hr IV Q12H [facility] Last Admin: 03/02/17 22:06 Dose: 167 mls/hr Lidocaine HCl (Xylocaine 2%) 0 mg IVPUSH ASDIRECTED PRN PRN Reason: Heart Nitroglycerin (Nitrostat) 0.4 mg SL ASDIRECTED PRN PRN Reason: Heart Non-Formulary Medication (Allopurinol [Zyloprim]) 450 mg PO DAILY [facility] Non-Formulary Medication (Duloxetine Hcl [Cymbalta]) 60 mg PO DAILY [facility] Non-Formulary Medication (Gabapentin [Neurontin]) 400 mg PO BEDTIME [facility] Last Admin: 02/28/17 22:30 Dose: Not Given Non-Formulary Medication (Sitagliptin [Januvia]) 100 mg PO DAILY [facility] Non-Formulary Medication (Thyroid,Pork [[place] Thyroid]) 120 mg PO DAILY [facility] Non-Formulary Medication (Tizanidine Hcl [Tizanidine Hcl]) 6 mg PO BEDTIME PRN PRN Reason: Muscle Spasm Ondansetron HCl (Zofran) 8 mg IVPUSH ONETIME ONE Stop: 02/28/17 17:57 Last Admin: 02/28/17 18:07 Dose: 8 mg Ondansetron HCl (Zofran) 4 mg IVPUSH ONETIME ONE Stop: 02/28/17 18:41 Last Admin: 02/28/17 19:29 Dose: 4 mg Ondansetron HCl (Zofran) 4 mg IVPUSH ONETIME ONE Stop: 03/01/17 20:28 Last Admin: 03/01/17 21:16 Dose: 4 mg Tramadol HCl (Ultram) 50 mg PO Q4H [facility] Last Admin: 03/01/17 11:35 Dose: Not Given Vancomycin HCl (Pharmacy To Dose - Vancomycin) 0 dose .XX ASDIRECTED [facility] - Exam General: alert, oriented HEENT: Pupils equal, EOMI Lungs: Clear to auscultation, Normal respiratory effort. No: Decreased breath sounds Cardiovascular: Regular Rate, Regular Rhythm Abdomen: bowel sounds present, soft, no tenderness Back Exam: No: CVA Tenderness (L), CVA Tenderness (R) Extremities: other (Left lower leg has cellulitis from foot extending up to the knee. This is marked with a skin marker. Significant swelling of bilat lower legs.) Neurological: no new focal deficit Psy/Mental Status: alert, normal affect, normal mood - Problem List Review Problem List Initiated/Reviewed/Updated: Yes - Assessment Assessment:: 1. With the cellulitis worsening again we will do blood and wound cultures and restart the regimen of Zosyn and Vanco. 2. With her cold sore will give Valtrex 2000 mg twice today. 3. Will give Mucinex to help loosen up the sinus congestion and drink 8 cups of water daily. - Plan Plan:: Based on culture results will switch to levofloxacin 500 mg IV through the weekend. If continued improvement then will discharge to home on Monday () with follow-up with podiatry and antibiotics to complete a 14 day course. She is in agreement with this plan of care.
[2017-03-04] MEDS: valACYclovir 500 MG Tab PO SCH (16:51)
[2017-03-04] MEDS ORDERED: Vancomycin 1 GM SDV ONE (17:11)
[2017-03-04] MEDS: Piperacillin/Tazobactam 3.375 GM in Sodium Chloride 0.9% 100 ML IV SCH ×3 (19:14→21:00)
[2017-03-04] MEDS: Latanoprost 0.005% Ophth Soln 2.5 ML Bottle EYEBOTH SCH (20:41)
[2017-03-04] MEDS: guaiFENesin 600 MG Tab.ER PO SCH (20:41)
[2017-03-04] MEDS: Gabapentin 100 MG Cap PO SCH (20:42)
[2017-03-04] MEDS: tiZANidine 4 MG Tab PO SCH (20:42)
[2017-03-05] MEDS: valACYclovir 500 MG Tab PO SCH (04:18)
[2017-03-05] MEDS: Piperacillin/Tazobactam 3.375 GM in Sodium Chloride 0.9% 100 ML IV SCH (04:18)
[2017-03-05] MEDS: Sodium Chloride 0.9% 100 ML IV PRN (05:09)
[2017-03-05 07:47] LABS: CHLORIDE,CL 111 mmol/L (98-115); SODIUM,NA 145 mmol/L (136-145)
[2017-03-05] MEDS: Carboxymethylcellulose Sodium 0.5% Ophth Soln 15 ML Bottle EYEBOTH SCH ×4 (08:03→20:58)
[2017-03-05] MEDS: Enoxaparin 40 MG/0.4 ML Syringe SUBCUT SCH ×2 (08:05→20:59)
[2017-03-05] MEDS: DICLOFENAC SODIUM 75 MG PO SCH ×2 (08:05→17:24)
[2017-03-05] MEDS: Levofloxacin/Dextrose 5%-Water 100 ML IV SCH (08:05)
[2017-03-05] MEDS: Allopurinol 100 MG Tab PO SCH (08:06)
[2017-03-05] MEDS: Hydroxychloroquine 200 MG Tab PO SCH ×2 (08:07→17:24)
[2017-03-05] MEDS: predniSONE 5 MG Tab PO SCH ×2 (08:07→17:24)
[2017-03-05] MEDS: Losartan 50 MG Tab PO SCH (08:09)
[2017-03-05] MEDS: DULoxetine 30 MG Cap PO SCH (08:09)
[2017-03-05] MEDS: predniSONE 1 MG Tab PO SCH (08:09)
[2017-03-05] MEDS: Pantoprazole 40 MG Tab.CR PO SCH (08:10)
[2017-03-05] MEDS: ARMOUR THYROID 120 MG PO SCH (08:10)
[2017-03-05] MEDS: guaiFENesin 600 MG Tab.ER PO SCH ×2 (08:24→20:59)
[2017-03-05] MEDS: Piperacillin/Tazobactam/Dext 3.375 GM in Premix Bag 1 BAG IV SCH ×3 (09:36→21:00)
[2017-03-05] MEDS: Acetaminophen 325 MG Tab PO PRN (09:40)
[2017-03-05] MEDS ORDERED: Loratadine 10 MG Tab PO ONE (11:01)
--- NOTE | 2017-03-05 11:10 | PCM.PN ---
- General Info Date of Service: 03/05/17 Functional Status: Reports: pain controlled (Pain in her leg is a little worse today; she has been taking Tylenol and wants to just continue with that and avoid Tramadol for now.), ambulating (to bathroom only; encouraged her to walk a little more), urinating. Denies: new symptoms - Review of Systems General: Denies: Fever, Weakness HEENT: Reports: post nasal drip, sinus congestion (she thinks her allergies are acting up and would like to add Claritin 10 mg which she takes daily at home.). Denies: sore throat Pulmonary: Denies: shortness of breath, cough, wheezing Cardiovascular: Denies: Chest Pain Gastrointestinal: Denies: Abdominal pain, Vomiting Genitourinary: Denies: dysuria, flank pain Musculoskeletal: Reports: no symptoms Skin: Denies: cyanosis, jaundice, mottled, pallor, diaphoresis Neurological: Denies: Confusion, Dizziness, Trouble Speaking - Patient Data Vitals - most recent: Last Vital Signs Temp 99.2 F 03/05/17 06:24 Pulse 82 03/05/17 06:24 Resp 20 03/05/17 06:24 BP 147/78 H 03/05/17 08:09 Pulse Ox 98 03/05/17 06:24 Weight - most recent: 277 lb 12.8 oz I&O - last 24 hours: Intake & Output 03/04/17 03/05/17 03/05/17 22:59 06:59 14:59 Intake Total 825 685 Balance 825 685 Lab Results last 24 hrs: Laboratory Results - last 24 hr 03/04/17 03/05/17 03/05/17 Range/Units 17:32 06:14 07:05 WBC 5.9 (5.0-10.0) 10^3/uL RBC 3.53 L (3.80-5.50) 10^6/uL Hgb 10.6 L (12.0-16.0) g/dL Hct 31.7 L (37.0-47.0) % MCV 89.8 (82.0-92.0) fL MCH 29.9 (27.0-31.0) pg MCHC 33.3 (32.0-36.0) g/dL RDW 16.8 H (11.5-14.5) % Plt Count 185 (150-300) 10^3/uL MPV 8.1 (7.4-10.4) fL Neut % (Auto) 68.2 (50.0-70.0) % Lymph % (Auto) 18.2 L (20.0-40.0) % [place] % (Auto) 11.3 H (2.0-8.0) % Eos % (Auto) 1.7 (1.0-3.0) % Baso % (Auto) 0.6 (0.0-1.0) % Neut # (Auto) 4.0 (2.5-7.0) 10^3/uL Lymph # (Auto) 1.1 (1.0-4.0) 10^3/uL [place] # (Auto) 0.7 (0.1-0.8) 10^3/uL Eos # (Auto) 0.1 (0.1-0.3) 10^3/uL Baso # (Auto) 0.0 (0.0-0.1) 10^3/uL Sodium (136-145) mmol/L Potassium (3.3-5.3) mmol/L Chloride (98-115) mmol/L Carbon Dioxide (21.0-32.0) mmol/L BUN (6-25) mg/dL Creatinine (0.51-1.17) mg/dL Est Cr Clr Drug Dosing mL/min Estimated GFR (MDRD) mL/min Glucose (70-110) mg/dL POC Glucose 108 H 100 (74-106) mg/dl Calcium (8.7-10.3) mg/dL 03/05/17 Range/Units 07:05 WBC (5.0-10.0) 10^3/uL RBC (3.80-5.50) 10^6/uL Hgb (12.0-16.0) g/dL Hct (37.0-47.0) % MCV (82.0-92.0) fL MCH (27.0-31.0) pg MCHC (32.0-36.0) g/dL RDW (11.5-14.5) % Plt Count (150-300) 10^3/uL MPV (7.4-10.4) fL Neut % (Auto) (50.0-70.0) % Lymph % (Auto) (20.0-40.0) % [place] % (Auto) (2.0-8.0) % Eos % (Auto) (1.0-3.0) % Baso % (Auto) (0.0-1.0) % Neut # (Auto) (2.5-7.0) 10^3/uL Lymph # (Auto) (1.0-4.0) 10^3/uL [place] # (Auto) (0.1-0.8) 10^3/uL Eos # (Auto) (0.1-0.3) 10^3/uL Baso # (Auto) (0.0-0.1) 10^3/uL Sodium 145 (136-145) mmol/L Potassium 3.8 (3.3-5.3) mmol/L Chloride 111 (98-115) mmol/L Carbon Dioxide 26.2 (21.0-32.0) mmol/L BUN 13 (6-25) mg/dL Creatinine 0.74 (0.51-1.17) mg/dL Est Cr Clr Drug Dosing 73.30 mL/min Estimated GFR (MDRD) > 60 mL/min Glucose 95 (70-110) mg/dL POC Glucose (74-106) mg/dl Calcium 9.0 (8.7-10.3) mg/dL Med Orders - Current: Current Medications Acetaminophen (Tylenol) 650 mg PO Q6H PRN PRN Reason: Pain Last Admin: 03/05/17 09:40 Dose: 650 mg Albuterol (Ventolin Hfa) 0 gm INH Q2H PRN PRN Reason: Shortness of Breath Last Admin: 03/04/17 19:21 Dose: 2 inhalation Allopurinol (Zyloprim) 450 mg PO DAILY [facility] Last Admin: 03/05/17 08:06 Dose: 450 mg Artificial Tears (Refresh Tears 0.5%) 1 ml EYEBOTH QID [facility] Last Admin: 03/05/17 08:03 Dose: 1 drop Benzonatate (Tessalon Perles) 200 mg PO TID PRN PRN Reason: Cough Duloxetine HCl (Cymbalta) 60 mg PO DAILY [facility] Last Admin: 03/05/17 08:09 Dose: 60 mg Enoxaparin Sodium (Lovenox) 40 mg SUBCUT Q12H [facility] Last Admin: 03/05/17 08:05 Dose: 40 mg Gabapentin (Neurontin) 400 mg PO BEDTIME [facility] Last Admin: 03/04/17 20:42 Dose: 400 mg Guaifenesin (Mucinex) 600 mg PO BID [facility] Last Admin: 03/05/17 08:24 Dose: 600 mg Hydroxychloroquine Sulfate (Plaquenil) 200 mg PO BIDMEALS [facility] Last Admin: 03/05/17 08:07 Dose: 200 mg Levofloxacin/Dextrose (Levaquin In D5w 500 Mg/100 Ml) 100 mls @ 100 mls/hr IV Q24H [facility] Last Admin: 03/05/17 08:05 Dose: 100 mls/hr Sodium Chloride (Normal Saline) 100 mls @ 20 mls/hr IV DAILY@1000 PRN PRN Reason: flush Last Admin: 03/05/17 05:09 Dose: 20 mls/hr Vancomycin HCl 1.25 gm/ Sodium (Chloride) 250 mls @ 167 mls/hr IV Q12H [facility] Last Admin: 03/05/17 05:06 Dose: 167 mls/hr Piperacillin/Tazobactam/ (Dextrose 3.375 gm/ Premix) 50 mls @ 100 mls/hr IV Q6H [facility] Last Admin: 03/05/17 09:36 Dose: 75 mls/hr Lactobacillus Acidophilus/Rhamnosus (Multi-Kika Plus) 1 cap PO DAILY [facility] Latanoprost (Xalatan 0.005% Ophth Soln) 0 ml EYEBOTH BEDTIME [facility] Last Admin: 03/04/17 20:41 Dose: 1 drop Loratadine (Claritin) 10 mg PO ONETIME ONE Stop: 03/05/17 11:02 Losartan Potassium (Cozaar) 50 mg PO DAILY [facility] Last Admin: 03/05/17 08:09 Dose: 50 mg Ondansetron HCl (Zofran) 4 mg IVPUSH Q4H PRN PRN Reason: Nausea/Vomiting Last Admin: 03/01/17 18:09 Dose: 4 mg Pantoprazole Sodium (Protonix) 40 mg PO DAILY [facility] Last Admin: 03/05/17 08:10 Dose: 40 mg Ptom [place] (Thyroid 120mg Tablet) 1 each PO DAILY [facility] Last Admin: 03/05/17 08:10 Dose: 1 each Ptom Diclofenac (Sodium 75mg Tablet) 1 each PO BIDMEALS [facility] Last Admin: 03/05/17 08:05 Dose: 1 each Prednisone (Prednisone) 5 mg PO BIDMEALS [facility] Last Admin: 03/05/17 08:07 Dose: 5 mg Prednisone (Prednisone) 2 mg PO DAILY [facility] Last Admin: 03/05/17 08:09 Dose: 2 mg Sitagliptin Phosphate (Januvia) 50 mg PO DAILY [facility] Last Admin: 03/05/17 08:09 Dose: 50 mg Tizanidine HCl (Zanaflex) 6 mg PO BEDTIME [facility] Last Admin: 03/04/17 20:42 Dose: 6 mg Tramadol HCl (Ultram) 50 mg PO Q4H PRN PRN Reason: Pain Last Admin: 03/01/17 19:00 Dose: 50 mg Vancomycin HCl (Pharmacy To Dose - Vancomycin) 1 dose .XX ASDIRECTED [facility] Discontinued Medications Acetaminophen (Tylenol Extra Strength) 1,000 mg PO ONETIME ONE Stop: 02/28/17 18:09 Last Admin: 02/28/17 18:10 Dose: 1,000 mg Atropine Sulfate (Atropine 0.1 Mg/Ml) 0 mg IVPUSH ASDIRECTED PRN PRN Reason: Heart Diclofenac Sodium (Voltaren) 75 mg PO BIDMEALS [facility] Last Admin: 03/01/17 10:31 Dose: Not Given Enoxaparin Sodium (Lovenox) 40 mg SUBCUT Q12H [facility] Last Admin: 03/02/17 16:15 Dose: 40 mg Epinephrine HCl (Epinephrine 1:10,000) 1 mg IVPUSH ASDIRECTED PRN PRN Reason: Heart Hydromorphone HCl (Dilaudid) 1 mg IVPUSH ONETIME ONE Stop: 02/28/17 17:57 Last Admin: 02/28/17 18:07 Dose: 1 mg Hydromorphone HCl (Dilaudid) 0.5 mg IVPUSH ONETIME ONE Stop: 02/28/17 18:41 Last Admin: 02/28/17 21:47 Dose: Not Given Hydromorphone HCl (Dilaudid) 1 mg IVPUSH Q4H PRN PRN Reason: Pain Last Admin: 03/01/17 22:08 Dose: 1 mg Sodium Chloride (Normal Saline) 1,000 mls @ 999 mls/hr IV .BOLUS ONE Stop: 02/28/17 18:56 Last Admin: 02/28/17 18:23 Dose: 999 mls/hr Sodium Chloride (Normal Saline) 1,000 mls @ 999 mls/hr IV .BOLUS ONE Stop: 02/28/17 19:42 Last Admin: 02/28/17 19:42 Dose: 999 mls/hr Piperacillin/Tazobactam/ (Dextrose 3.375 gm/ Premix) 50 mls @ 100 mls/hr IV ONETIME ONE Stop: 02/28/17 19:14 Last Admin: 02/28/17 19:28 Dose: 100 mls/hr Piperacillin/Tazobactam/ (Dextrose 3.375 gm/ Premix) 50 mls @ 100 mls/hr IV Q6H [facility] Last Admin: 03/03/17 07:54 Dose: 100 mls/hr Vancomycin HCl 1.25 gm/ Sodium (Chloride) 250 mls @ 167 mls/hr IV Q24H [facility] Last Admin: 02/28/17 22:25 Dose: 167 mls/hr Sodium Chloride (Normal Saline) Confirm Administered Dose 500 mls @ as directed .ROUTE .STK-MED ONE Stop: 02/28/17 21:12 Last Admin: 02/28/17 21:20 Dose: Not Given Sodium Chloride (Normal Saline) 1,000 mls @ 999 mls/hr IV .BOLUS ONE Stop: 02/28/17 22:29 Last Admin: 02/28/17 21:50 Dose: 999 mls/hr Sodium Chloride (Sodium Chloride 0.45%) 1,000 mls @ 150 mls/hr IV ASDIRECTED [facility] Last Admin: 03/03/17 01:04 Dose: 150 mls/hr Vancomycin HCl 1.25 gm/ Sodium (Chloride) 250 mls @ 167 mls/hr IV Q12H [facility] Last Admin: 03/01/17 11:32 Dose: 167 mls/hr Vancomycin HCl 1.25 gm/ Sodium (Chloride) 250 mls @ 167 mls/hr IV Q12H [facility] Vancomycin HCl 1.25 gm/ Sodium (Chloride) 250 mls @ 167 mls/hr IV Q12H [facility] Last Admin: 03/02/17 22:06 Dose: 167 mls/hr Piperacillin Sod/Tazobactam (Sod 3.375 gm/ Sodium Chloride) 100 mls @ 200 mls/ hr IV Q6H [facility] Last Admin: 03/05/17 04:18 Dose: 200 mls/hr Lidocaine HCl (Xylocaine 2%) 0 mg IVPUSH ASDIRECTED PRN PRN Reason: Heart Nitroglycerin (Nitrostat) 0.4 mg SL ASDIRECTED PRN PRN Reason: Heart Non-Formulary Medication (Allopurinol [Zyloprim]) 450 mg PO DAILY [facility] Non-Formulary Medication (Duloxetine Hcl [Cymbalta]) 60 mg PO DAILY [facility] Non-Formulary Medication (Gabapentin [Neurontin]) 400 mg PO BEDTIME [facility] Last Admin: 02/28/17 22:30 Dose: Not Given Non-Formulary Medication (Sitagliptin [Januvia]) 100 mg PO DAILY [facility] Non-Formulary Medication (Thyroid,Pork [[place] Thyroid]) 120 mg PO DAILY [facility] Non-Formulary Medication (Tizanidine Hcl [Tizanidine Hcl]) 6 mg PO BEDTIME PRN PRN Reason: Muscle Spasm Ondansetron HCl (Zofran) 8 mg IVPUSH ONETIME ONE Stop: 02/28/17 17:57 Last Admin: 02/28/17 18:07 Dose: 8 mg Ondansetron HCl (Zofran) 4 mg IVPUSH ONETIME ONE Stop: 02/28/17 18:41 Last Admin: 02/28/17 19:29 Dose: 4 mg Ondansetron HCl (Zofran) 4 mg IVPUSH ONETIME ONE Stop: 03/01/17 20:28 Last Admin: 03/01/17 21:16 Dose: 4 mg Tramadol HCl (Ultram) 50 mg PO Q4H [facility] Last Admin: 03/01/17 11:35 Dose: Not Given Valacyclovir HCl (Valtrex) 2,000 mg PO Q12H [facility] Stop: 03/05/17 04:01 Last Admin: 03/05/17 04:18 Dose: 2,000 mg Vancomycin HCl (Pharmacy To Dose - Vancomycin) 0 dose .XX ASDIRECTED [facility] Vancomycin HCl (Vancomycin) Confirm Administered Dose 1 gm .ROUTE .STK-MED ONE Stop: 03/04/17 17:12 Last Admin: 03/04/17 18:22 Dose: Not Given - Exam General: alert, oriented, cooperative, no acute distress HEENT: Pupils equal, Pupils reactive, EOMI, Mucous membr. moist/pink Neck: supple Lungs: Clear to auscultation, Normal respiratory effort Cardiovascular: Regular Rate, Regular Rhythm Abdomen: soft, no tenderness, no distension Back Exam: Normal Inspection, Full Range of Motion. No: CVA Tenderness (L), CVA Tenderness (R) Extremities: other (Left lower extremity erythema has improved significantly from yesterday. The tone of redness has faded noticeably; the proximal border hasn't extended any further than the marked line from yesterday posteriorly and has actually regressed distally from the anterior yinka. Swelling hasn't improved noticeably.) Skin: warm, dry, intact Wound/Incisions: erythema improving Neurological: no new focal deficit Psy/Mental Status: alert, normal affect, normal mood - Problem List Review Problem List Initiated/Reviewed/Updated: No - My Orders Last 24 Hours: My Active Orders 03/04/17 15:40 Blood Culture x2 Reflex Set [OM.PC] Stat 03/04/17 15:45 Vancomycin Pharmacy to Dose [Pharmacy to Dose - Vancomycin] 1 dose .XX ASDIRECTED 03/04/17 16:00 Vancomycin 1.25 gm Sodium Chloride 0.9% [Normal Saline] 250 ml IV Q12H 03/04/17 16:45 CULTURE WOUND [RM] Routine 03/04/17 17:00 CULTURE BLOOD [BC] Stat 03/04/17 17:15 CULTURE BLOOD [BC] Stat 03/04/17 21:00 guaiFENesin [Mucinex] 600 mg PO BID 03/05/17 10:45 B.Bif/B.Long/L.Acidoph/L.Rhamn [Multi-Kika Plus] 1 cap PO DAILY 03/05/17 11:01 Loratadine [Claritin] 10 mg PO ONETIME ONE 03/06/17 07:00 BMP [BASIC METABOLIC PANEL,BMP] [CHEM] Routine CBC WITH AUTO DIFF [HEME] Routine - Assessment Assessment:: 1. Left leg cellulitis--improving. 2. Seasonal/General allergies. - Plan Plan:: 1. Will continue the Zosyn and Vanco regimen that was restarted yesterday since she is responding nicely to it. 2. Will start a daily probiotic at patient request. 3. Will start a daily Claritin at patient request. 4. Will hold Levaquin. 5. Patient will try to ambulate more today.
[2017-03-05] MEDS: B.Bifidum/B.Longum/L.Acidophilus/L.Rhamnosus (Probiotic) Cap PO SCH (11:40)
[2017-03-05] MEDS: traMADol 50 MG Tab PO PRN ×2 (11:49→20:58)
[2017-03-05] MEDS: Ondansetron 4 MG/2 ML SDV IVPUSH PRN ×2 (11:49→20:58)
[2017-03-05] MEDS: Albuterol HFA 18 Gm Inhaler INH PRN (15:00)
[2017-03-05] MEDS: Latanoprost 0.005% Ophth Soln 2.5 ML Bottle EYEBOTH SCH (20:58)
[2017-03-05] MEDS: tiZANidine 4 MG Tab PO SCH (20:59)
[2017-03-05] MEDS: Gabapentin 100 MG Cap PO SCH (20:59)
[2017-03-06] MEDS: Piperacillin/Tazobactam/Dext 3.375 GM in Premix Bag 1 BAG IV SCH ×3 (04:14→15:11)
[2017-03-06] MEDS: Sodium Chloride 0.9% 100 ML IV PRN (04:14)
[2017-03-06 06:15] VITALS: BP 122/65
[2017-03-06 07:59] LABS: CHLORIDE,CL 107 mmol/L (98-115); SODIUM,NA 142 mmol/L (136-145)
[2017-03-06] MEDS: ARMOUR THYROID 120 MG PO SCH (08:08)
[2017-03-06] MEDS: DULoxetine 30 MG Cap PO SCH (08:09)
[2017-03-06] MEDS: Hydroxychloroquine 200 MG Tab PO SCH (08:09)
[2017-03-06] MEDS: B.Bifidum/B.Longum/L.Acidophilus/L.Rhamnosus (Probiotic) Cap PO SCH (08:09)
[2017-03-06] MEDS: guaiFENesin 600 MG Tab.ER PO SCH (08:10)
[2017-03-06] MEDS: predniSONE 5 MG Tab PO SCH (08:10)
[2017-03-06] MEDS: DICLOFENAC SODIUM 75 MG PO SCH (08:11)
[2017-03-06] MEDS: Losartan 50 MG Tab PO SCH (08:11)
[2017-03-06] MEDS: Enoxaparin 40 MG/0.4 ML Syringe SUBCUT SCH (08:12)
[2017-03-06] MEDS: predniSONE 1 MG Tab PO SCH (08:12)
[2017-03-06] MEDS: Pantoprazole 40 MG Tab.CR PO SCH (08:13)
[2017-03-06] MEDS: Allopurinol 100 MG Tab PO SCH (08:14)
[2017-03-06] MEDS: Carboxymethylcellulose Sodium 0.5% Ophth Soln 15 ML Bottle EYEBOTH SCH ×2 (08:14→12:55)
[2017-03-06] MEDS: Acetaminophen 325 MG Tab PO PRN (08:22)
[2017-03-06] MEDS ORDERED: Docusate Sodium 100 MG Cap PO SCH (09:00)
[2017-03-06] MEDS: traMADol 50 MG Tab PO PRN (12:55)
[2017-03-06] MEDS: Ondansetron 4 MG/2 ML SDV IVPUSH PRN (12:55)
[2017-03-06] MEDS: Albuterol HFA 18 Gm Inhaler INH PRN (13:16)
--- NOTE | 2017-03-06 13:30 | PCM.DCSUM1 ---
Discharge Summary - Hospital Course Free Text/Narrative:: Slime is being discharged from [facility] with transfer to [place], [place] for further evaluation and management of a left foot diabetic ulcer with cellulitis of the LLE. She was hospitalized from 02/28/17 - 03/06/17. She initially presented to the ER on 02/28/17 with fever (102) and redness of her left leg, no drainage from the ulcer. She had a leukocytosis that peaked at 13 but is not WNL. She was started on vancomycin and zosyn. Wound culture was MSSA with sensitivity to levofloxacin. Blood cultures were aerobic bottle only positive for coag neg staph. She was changed to levofloxacin IV on but within 24 hours, her redness had expanded significantly (it was nearly completely resolved) and her leg became more swollen and warm. She was on enoxaparin for DVT prophylaxis and had been ambulatory, although limited. She was restarted on vancomycin and zosyn on 03/05/17 and has been on that ever since. When she was seen today her leg was very edematous with small blisters forming due to the edema and her leg was very warm and erythematous. I feel she needs and MRI of the foot and possible U/S of the leg for DVT, we do not have that capability here until several days. Her capacitor repairer has been Dr. Bauer at [facility]. I spoke to Dr. Cohn, ER physician, who graciously agreed to accept this patient. She will be transferred by ground ambulance. She is also noted to have low total protein of 5.1 and albumin of 2.15. She had a PICC line placed prior to her discharge, this was placed on by [employer]. She has not had a BM in 4 days, colace 100 mg PO BID and senna- s 1 tab PO BID was started today. Her methotrexate weekly dose was held due to her cellulitis. - Discharge Data Discharge Date: 03/06/17 Discharge Disposition: DC/Tfer to Acute Hospital 02 Condition: Good - Discharge Diagnosis/Problem(s) (1) Cellulitis and abscess of left leg SNOMED Code(s): 782379426 ICD Code: L03.116 - CELLULITIS OF LEFT LOWER LIMB; L02.416 - CUTANEOUS ABSCESS OF LEFT LOWER LIMB Status: Acute Current Visit: Yes (2) Diabetic foot ulcer associated with type 2 diabetes mellitus SNOMED Code(s): 802842638 ICD Code: E11.621 - TYPE 2 DIABETES MELLITUS WITH FOOT ULCER; L97.509 - NON- PRESSURE CHRONIC ULCER OTH PRT UNSP FOOT W UNSP SEVERITY Status: Acute Current Visit: Yes Qualifiers: Diabetic foot ulcer location: midfoot Laterality: left Non-pressure ulcer stage: with fat layer exposed Qualified Code(s): E11.621 - Type 2 diabetes mellitus with foot ulcer; L97.422 - Non-pressure chronic ulcer of left heel and midfoot with fat layer exposed - Patient Summary/Data Consults: Consultations 02/28/17 20:12 Pharmacy Consult [Consult to Pharmacy] [CONS] Routine 03/02/17 11:10 PT Evaluation and Treatment [CONS] Routine 03/03/17 14:06 Wound [employer]wood C[employer] Helper Consult [Consult to Wound Care Services] [CONS] Routine - Patient Instructions Diet: Diabetic Diet Activity: As Tolerated - Discharge Plan Home Medications: Home Meds Albuterol [Ventolin HFA] 2 puff INH Q2H PRN 02/28/17 [History] Allopurinol [Zyloprim] 450 mg PO DAILY 02/28/17 [History] Benzonatate [Tessalon Perles] 200 mg PO TID PRN 02/28/17 [History] DULoxetine HCl [Cymbalta] 60 mg PO DAILY 02/28/17 [History] Diclofenac Sodium [Voltaren] 75 mg PO BIDMEALS 02/28/17 [History] Gabapentin [Neurontin] 400 mg PO BEDTIME 02/28/17 [History] Hydroxychloroquine [Plaquenil] 200 mg PO BIDMEALS 02/28/17 [History] Losartan Potassium 50 mg PO DAILY 02/28/17 [History] Methotrexate 20 mg PO WEEKLY 02/28/17 [History] Ondansetron [Zofran] 4 mg PO Q6H PRN 02/28/17 [History] Pantoprazole Sodium [Protonix] 40 mg PO DAILY 02/28/17 [History] SitaGLIPtin [Januvia] 100 mg PO DAILY 02/28/17 [History] Thyroid,Pork [[place] Thyroid] 120 mg PO DAILY 02/28/17 [History] predniSONE [Prednisone] 2 mg PO DAILY 02/28/17 [History] predniSONE [Prednisone] 5 mg PO BIDMEALS 02/28/17 [History] tiZANidine HCl [Tizanidine HCl] 6 mg PO BEDTIME PRN 02/28/17 [History] traMADol [Ultram] 50 mg PO Q4H 02/28/17 [History] Cetirizine [ZyrTEC] 10 mg PO DAILY 03/05/17 [History] Docusate Sodium [Colace] 100 mg PO BID cap 03/06/17 [Rx] Docusate Sodium/Sennosides [Senna Plus] 1 tab PO BID tablet 03/06/17 [Rx] Enoxaparin [Lovenox] 40 mg SUBCUT Q12H syringe 03/06/17 [Rx] Piperacillin/Tazobactam/Dext [Zosyn in Dextrose Iso-Osmotic 3.375 GM] 3.375 gm IV Q6H bag 03/06/17 [Rx] Vancomycin 1.25 gm IV Q12H sdv 03/06/17 [Rx] Vancomycin Pharmacy to Dose [Pharmacy to Dose - Vancomycin] 1 dose .XX ASDIRECTED each 03/06/17 [Rx] Forms: Interfacility Transfer EMTALA Referrals: PCP,None [Primary Care Provider] - - General Info Date of Service: 03/06/17 Admission Dx/Problem (Free Text: Left foot and leg cellulitis. - Patient Data Vitals - Most Recent: Last Vital Signs Temp 97.1 F 03/06/17 06:14 Pulse 75 03/06/17 06:14 Resp 18 03/06/17 06:14 BP 122/65 03/06/17 08:11 Pulse Ox 96 03/06/17 06:14 Weight - Most Recent: 277 lb 12.8 oz I&O - Last 24 hours: Intake & Output 03/05/17 03/06/17 03/06/17 22:59 06:59 14:59 Intake Total 850 585 75 Balance 850 585 75 Lab Results - Last 24 hrs: Laboratory Results - last 24 hr 03/05/17 03/06/17 03/06/17 Range/Units 17:42 06:09 07:20 WBC 7.0 (5.0-10.0) 10^3/uL RBC 3.37 L (3.80-5.50) 10^6/uL Hgb 9.7 L (12.0-16.0) g/dL Hct 30.1 L (37.0-47.0) % MCV 89.4 (82.0-92.0) fL MCH 28.8 (27.0-31.0) pg MCHC 32.2 (32.0-36.0) g/dL RDW 16.7 H (11.5-14.5) % Plt Count 197 (150-300) 10^3/uL MPV 8.1 (7.4-10.4) fL Neut % (Auto) 65.0 (50.0-70.0) % Lymph % (Auto) 21.2 (20.0-40.0) % Kimble % (Auto) 10.7 H (2.0-8.0) % Eos % (Auto) 2.4 (1.0-3.0) % Baso % (Auto) 0.7 (0.0-1.0) % Neut # (Auto) 4.6 (2.5-7.0) 10^3/uL Lymph # (Auto) 1.5 (1.0-4.0) 10^3/uL Kimble # (Auto) 0.7 (0.1-0.8) 10^3/uL Eos # (Auto) 0.2 (0.1-0.3) 10^3/uL Baso # (Auto) 0.0 (0.0-0.1) 10^3/uL Sodium (136-145) mmol/L Potassium (3.3-5.3) mmol/L Chloride (98-115) mmol/L Carbon Dioxide (21.0-32.0) mmol/L BUN (6-25) mg/dL Creatinine (0.51-1.17) mg/dL Est Cr Clr Drug Dosing mL/min Estimated GFR (MDRD) mL/min Glucose (70-110) mg/dL POC Glucose 102 77 (74-106) mg/dl Calcium (8.7-10.3) mg/dL 03/06/17 Range/Units 07:20 WBC (5.0-10.0) 10^3/uL RBC (3.80-5.50) 10^6/uL Hgb (12.0-16.0) g/dL Hct (37.0-47.0) % MCV (82.0-92.0) fL MCH (27.0-31.0) pg MCHC (32.0-36.0) g/dL RDW (11.5-14.5) % Plt Count (150-300) 10^3/uL MPV (7.4-10.4) fL Neut % (Auto) (50.0-70.0) % Lymph % (Auto) (20.0-40.0) % Kimble % (Auto) (2.0-8.0) % Eos % (Auto) (1.0-3.0) % Baso % (Auto) (0.0-1.0) % Neut # (Auto) (2.5-7.0) 10^3/uL Lymph # (Auto) (1.0-4.0) 10^3/uL Kimble # (Auto) (0.1-0.8) 10^3/uL Eos # (Auto) (0.1-0.3) 10^3/uL Baso # (Auto) (0.0-0.1) 10^3/uL Sodium 142 (136-145) mmol/L Potassium 3.5 (3.3-5.3) mmol/L Chloride 107 (98-115) mmol/L Carbon Dioxide 26.9 (21.0-32.0) mmol/L BUN 13 (6-25) mg/dL Creatinine 0.81 (0.51-1.17) mg/dL Est Cr Clr Drug Dosing 66.97 mL/min Estimated GFR (MDRD) > 60 mL/min Glucose 74 (70-110) mg/dL POC Glucose (74-106) mg/dl Calcium 8.7 (8.7-10.3) mg/dL [facility]O Results - Last 24 hrs: Microbiology 03/04/17 17:15 Aerobic Blood Culture - Preliminary Blood - Venous - Lab Draw NO GROWTH AFTER 1 DAY Anaerobic Blood Culture - Preliminary NO GROWTH AFTER 1 DAY 03/04/17 17:00 Aerobic Blood Culture - Preliminary Blood - Venous NO GROWTH AFTER 1 DAY Anaerobic Blood Culture - Preliminary NO GROWTH AFTER 1 DAY Med Orders - Current: Current Medications Acetaminophen (Tylenol) 650 mg PO Q6H PRN PRN Reason: Pain Last Admin: 03/06/17 08:22 Dose: 650 mg Albuterol (Ventolin Hfa) 0 gm INH Q2H PRN PRN Reason: Shortness of Breath Last Admin: 03/06/17 13:16 Dose: 1 inhalation Allopurinol (Zyloprim) 450 mg PO DAILY [facility] Last Admin: 03/06/17 08:14 Dose: 450 mg Artificial Tears (Refresh Tears 0.5%) 1 ml EYEBOTH QID [facility] Last Admin: 03/06/17 12:55 Dose: 1 drop Benzonatate (Tessalon Perles) 200 mg PO TID PRN PRN Reason: Cough Docusate Sodium (Colace) 100 mg PO BID [facility] Last Admin: 03/06/17 09:31 Dose: 100 mg Duloxetine HCl (Cymbalta) 60 mg PO DAILY [facility] Last Admin: 03/06/17 08:09 Dose: 60 mg Enoxaparin Sodium (Lovenox) 40 mg SUBCUT Q12H [facility] Last Admin: 03/06/17 08:12 Dose: 40 mg Gabapentin (Neurontin) 400 mg PO BEDTIME [facility] Last Admin: 03/05/17 20:59 Dose: 400 mg Guaifenesin (Mucinex) 600 mg PO BID [facility] Last Admin: 03/06/17 08:10 Dose: 600 mg Hydroxychloroquine Sulfate (Plaquenil) 200 mg PO BIDMEALS [facility] Last Admin: 03/06/17 08:09 Dose: 200 mg Sodium Chloride (Normal Saline) 100 mls @ 20 mls/hr IV DAILY@1000 PRN PRN Reason: flush Last Admin: 03/06/17 04:14 Dose: 20 mls/hr Vancomycin HCl 1.25 gm/ Sodium (Chloride) 250 mls @ 167 mls/hr IV Q12H [facility] Last Admin: 03/06/17 04:50 Dose: 167 mls/hr Piperacillin/Tazobactam/ (Dextrose 3.375 gm/ Premix) 50 mls @ 100 mls/hr IV Q6H [facility] Last Admin: 03/06/17 09:31 Dose: 75 mls/hr Lactobacillus Acidophilus/Rhamnosus (Multi-Kika Plus) 1 cap PO DAILY@0700 [facility] Latanoprost (Xalatan 0.005% Ophth Soln) 0 ml EYEBOTH BEDTIME [facility] Last Admin: 03/05/17 20:58 Dose: 1 drop Losartan Potassium (Cozaar) 50 mg PO DAILY [facility] Last Admin: 03/06/17 08:11 Dose: 50 mg Ondansetron HCl (Zofran) 4 mg IVPUSH Q4H PRN PRN Reason: Nausea/Vomiting Last Admin: 03/06/17 12:55 Dose: 4 mg Pantoprazole Sodium (Protonix) 40 mg PO DAILY [facility] Last Admin: 03/06/17 08:13 Dose: 40 mg Ptom [place] (Thyroid 120mg Tablet) 1 each PO DAILY [facility] Last Admin: 03/06/17 08:08 Dose: 1 each Ptom Diclofenac (Sodium 75mg Tablet) 1 each PO BIDMEALS [facility] Last Admin: 03/06/17 08:11 Dose: 1 each Prednisone (Prednisone) 5 mg PO BIDMEALS [facility] Last Admin: 03/06/17 08:10 Dose: 5 mg Prednisone (Prednisone) 2 mg PO DAILY [facility] Last Admin: 03/06/17 08:12 Dose: 2 mg Senna/Docusate Sodium (Senna Plus) 1 tab PO BID [facility] Last Admin: 03/06/17 09:31 Dose: 1 tab Sitagliptin Phosphate (Januvia) 50 mg PO DAILY [facility] Last Admin: 03/06/17 08:11 Dose: 50 mg Tizanidine HCl (Zanaflex) 6 mg PO BEDTIME [facility] Last Admin: 03/05/17 20:59 Dose: 6 mg Tramadol HCl (Ultram) 50 mg PO Q4H PRN PRN Reason: Pain Last Admin: 03/06/17 12:55 Dose: 50 mg Vancomycin HCl (Pharmacy To Dose - Vancomycin) 1 dose .XX ASDIRECTED [facility] Discontinued Medications Acetaminophen (Tylenol Extra Strength) 1,000 mg PO ONETIME ONE Stop: 02/28/17 18:09 Last Admin: 02/28/17 18:10 Dose: 1,000 mg Atropine Sulfate (Atropine 0.1 Mg/Ml) 0 mg IVPUSH ASDIRECTED PRN PRN Reason: Heart Diclofenac Sodium (Voltaren) 75 mg PO BIDMEALS [facility] Last Admin: 03/01/17 10:31 Dose: Not Given Enoxaparin Sodium (Lovenox) 40 mg SUBCUT Q12H [facility] Last Admin: 03/02/17 16:15 Dose: 40 mg Epinephrine HCl (Epinephrine 1:10,000) 1 mg IVPUSH ASDIRECTED PRN PRN Reason: Heart Hydromorphone HCl (Dilaudid) 1 mg IVPUSH ONETIME ONE Stop: 02/28/17 17:57 Last Admin: 02/28/17 18:07 Dose: 1 mg Hydromorphone HCl (Dilaudid) 0.5 mg IVPUSH ONETIME ONE Stop: 02/28/17 18:41 Last Admin: 02/28/17 21:47 Dose: Not Given Hydromorphone HCl (Dilaudid) 1 mg IVPUSH Q4H PRN PRN Reason: Pain Last Admin: 03/01/17 22:08 Dose: 1 mg Sodium Chloride (Normal Saline) 1,000 mls @ 999 mls/hr IV .BOLUS ONE Stop: 02/28/17 18:56 Last Admin: 02/28/17 18:23 Dose: 999 mls/hr Sodium Chloride (Normal Saline) 1,000 mls @ 999 mls/hr IV .BOLUS ONE Stop: 02/28/17 19:42 Last Admin: 02/28/17 19:42 Dose: 999 mls/hr Piperacillin/Tazobactam/ (Dextrose 3.375 gm/ Premix) 50 mls @ 100 mls/hr IV ONETIME ONE Stop: 02/28/17 19:14 Last Admin: 02/28/17 19:28 Dose: 100 mls/hr Piperacillin/Tazobactam/ (Dextrose 3.375 gm/ Premix) 50 mls @ 100 mls/hr IV Q6H [facility] Last Admin: 03/03/17 07:54 Dose: 100 mls/hr Vancomycin HCl 1.25 gm/ Sodium (Chloride) 250 mls @ 167 mls/hr IV Q24H [facility] Last Admin: 02/28/17 22:25 Dose: 167 mls/hr Sodium Chloride (Normal Saline) Confirm Administered Dose 500 mls @ as directed .ROUTE .STK-MED ONE Stop: 02/28/17 21:12 Last Admin: 02/28/17 21:20 Dose: Not Given Sodium Chloride (Normal Saline) 1,000 mls @ 999 mls/hr IV .BOLUS ONE Stop: 02/28/17 22:29 Last Admin: 02/28/17 21:50 Dose: 999 mls/hr Sodium Chloride (Sodium Chloride 0.45%) 1,000 mls @ 150 mls/hr IV ASDIRECTED [facility] Last Admin: 03/03/17 01:04 Dose: 150 mls/hr Vancomycin HCl 1.25 gm/ Sodium (Chloride) 250 mls @ 167 mls/hr IV Q12H [facility] Last Admin: 03/01/17 11:32 Dose: 167 mls/hr Vancomycin HCl 1.25 gm/ Sodium (Chloride) 250 mls @ 167 mls/hr IV Q12H [facility] Vancomycin HCl 1.25 gm/ Sodium (Chloride) 250 mls @ 167 mls/hr IV Q12H [facility] Last Admin: 03/02/17 22:06 Dose: 167 mls/hr Levofloxacin/Dextrose (Levaquin In D5w 500 Mg/100 Ml) 100 mls @ 100 mls/hr IV Q24H [facility] Last Admin: 03/05/17 08:05 Dose: 100 mls/hr Piperacillin Sod/Tazobactam (Sod 3.375 gm/ Sodium Chloride) 100 mls @ 200 mls/ hr IV Q6H [facility] Last Admin: 03/05/17 04:18 Dose: 200 mls/hr Lactobacillus Acidophilus/Rhamnosus (Multi-Kika Plus) 1 cap PO DAILY [facility] Last Admin: 03/06/17 08:09 Dose: 1 cap Lidocaine HCl (Xylocaine 2%) 0 mg IVPUSH ASDIRECTED PRN PRN Reason: Heart Loratadine (Claritin) 10 mg PO ONETIME ONE Stop: 03/05/17 11:02 Last Admin: 03/05/17 11:40 Dose: 10 mg Nitroglycerin (Nitrostat) 0.4 mg SL ASDIRECTED PRN PRN Reason: Heart Non-Formulary Medication (Allopurinol [Zyloprim]) 450 mg PO DAILY [facility] Non-Formulary Medication (Duloxetine Hcl [Cymbalta]) 60 mg PO DAILY [facility] Non-Formulary Medication (Gabapentin [Neurontin]) 400 mg PO BEDTIME [facility] Last Admin: 02/28/17 22:30 Dose: Not Given Non-Formulary Medication (Sitagliptin [Januvia]) 100 mg PO DAILY [facility] Non-Formulary Medication (Thyroid,Pork [[place] Thyroid]) 120 mg PO DAILY [facility] Non-Formulary Medication (Tizanidine Hcl [Tizanidine Hcl]) 6 mg PO BEDTIME PRN PRN Reason: Muscle Spasm Ondansetron HCl (Zofran) 8 mg IVPUSH ONETIME ONE Stop: 02/28/17 17:57 Last Admin: 02/28/17 18:07 Dose: 8 mg Ondansetron HCl (Zofran) 4 mg IVPUSH ONETIME ONE Stop: 02/28/17 18:41 Last Admin: 02/28/17 19:29 Dose: 4 mg Ondansetron HCl (Zofran) 4 mg IVPUSH ONETIME ONE Stop: 03/01/17 20:28 Last Admin: 03/01/17 21:16 Dose: 4 mg Tramadol HCl (Ultram) 50 mg PO Q4H [facility] Last Admin: 03/01/17 11:35 Dose: Not Given Valacyclovir HCl (Valtrex) 2,000 mg PO Q12H [facility] Stop: 03/05/17 04:01 Last Admin: 03/05/17 04:18 Dose: 2,000 mg Vancomycin HCl (Pharmacy To Dose - Vancomycin) 0 dose .XX ASDIRECTED [facility] Vancomycin HCl (Vancomycin) Confirm Administered Dose 1 gm .ROUTE .STK-MED ONE Stop: 03/04/17 17:12 Last Admin: 03/04/17 18:22 Dose: Not Given - Exam General: Reports: alert, oriented, cooperative, no acute distress Lungs: Reports: Clear to auscultation, Normal respiratory effort Cardiovascular: Reports: Regular Rate, Regular Rhythm, No Murmurs Abdomen: Reports: bowel sounds present Extremities: Reports: no calf tenderness, edema, other (Erythematous LLE with edema from ankle to knee. She has small blisters developing from the edema.) Wound/Incisions: Reports: other (She has a foot ulcer on her left foot that is not draining.) *Q Meaningful Use (DIS) - VTE *Q VTE Criteria *Q: - Stroke *Q Stroke Criteria *Q: - AMI *Q AMI Criteria *Q:
[2017-03-07] MEDS ORDERED: B.Bifidum/B.Longum/L.Acidophilus/L.Rhamnosus (Probiotic) Cap PO SCH (07:00)
== END 2017-03-06 15:25 | DRG 872 ==
LOC: KA.ED 17:53 → UNDOADMIN 19:40 → KA.MS 19:40
PROVIDERS: ADMIT Internal Medicine; ATTEND Internal Medicine
DX: A41.9 Sepsis, unspecified organism (principal); L03.116 Cellulitis of left lower limb; L97.429 Non-pressure chronic ulcer of left heel and midfoot with unspecified severity; B95.61 Methicillin susceptible Staphylococcus aureus infection as the cause of diseases classified elsewhere; E11.621 Type 2 diabetes mellitus with foot ulcer; R10.9 Unspecified abdominal pain; M10.9 Gout, unspecified; F32.9 Major depressive disorder, single episode, unspecified; E11.40 Type 2 diabetes mellitus with diabetic neuropathy, unspecified; M79.7 Fibromyalgia; M06.9 Rheumatoid arthritis, unspecified; K21.9 Gastro-esophageal reflux disease without esophagitis; I10 Essential (primary) hypertension; J30.2 Other seasonal allergic rhinitis; Z88.2 Allergy status to sulfonamides; Z79.899 Other long term (current) drug therapy
CPT/HCPCS: 36415; 71010; 74176; 80048; 80053; 80202; 81001; 82565; 82728; 82962; 83540; 83550; 83605; 83690; 85025; 87040; 87070; 87077; 87088; 87186; 96361; 96374; 96375; 96376; 97162-GP; 97530-GP; 99285; A9270-GY; J1170; J1650; J1956; J2405; J2543; J3370; J7030; J7050

== ENCOUNTER 2019-05-07 07:56 | Day surgery (SDC) | payer MEDICAID ==
[~2019-05-07 07:56] MED LIST: Lidocaine 2% 5 ML SDV ONE; Midazolam 1 MG/ML 2 ML SDV ONE; Propofol 200 MG/20 ML SDV ONE
[2019-05-07] MEDS ORDERED: Sodium Chloride 0.9% 1,000 ML IV SCH (08:00)
[2019-05-07] MEDS ORDERED: Sodium Chloride 0.9% 10 ML Syringe FLUSH PRN (08:00)
[2019-05-07] MEDS ORDERED: Lidocaine 2% 5 ML SDV IV ONE (09:01)
[2019-05-07] MEDS ORDERED: Midazolam 1 MG/ML 2 ML SDV IV ONE (09:01)
[2019-05-07] MEDS ORDERED: Propofol 200 MG/20 ML SDV IV ONE (09:01)
--- NOTE | 2019-05-07 09:09 | PCM.PN ---
- General Info Date of Service: 05/07/19 - Review of Systems Systems Review Comment:: 58 y/o female with history of Dysphagia here for EGD. She also has a known history of H. Pylori infection and hiatal hernia. I have reviewed her recent H and P and no significant changes are noted. I have discussed the proposed EGD with possible biopsy and dilation with the patient. She agrees to proceed accepting risks. - Patient Data Vitals - Most Recent: Last Vital Signs Temp 96.6 F 05/07/19 07:58 Pulse 106 H 05/07/19 07:58 Resp 12 05/07/19 07:58 BP 184/96 H 05/07/19 07:58 Pulse Ox 97 05/07/19 07:58 Weight - Most Recent: 2.381 kg Med Orders - Current: Current Medications Sodium Chloride (Normal Saline) 1,000 mls @ 50 mls/hr IV ASDIRECTED [facility] Sodium Chloride (Saline Flush) 10 ml FLUSH Q8HR PRN PRN Reason: keep vein open Discontinued Medications Lidocaine (Xylocaine-Mpf 2%) Confirm Administered Dose 5 ml .ROUTE .STK-MED ONE Stop: 05/07/19 07:51 Midazolam HCl (Versed 1 Mg/Ml) Confirm Administered Dose 2 mg .ROUTE .STK-MED ONE Stop: 05/07/19 07:51 Propofol (Diprivan 20 Ml) Confirm Administered Dose 200 mg .ROUTE .STK-MED ONE Stop: 05/07/19 07:51 - Problem List Review Problem List Initiated/Reviewed/Updated: Yes - My Orders Last 24 Hours: My Active Orders 05/06/19 14:07 Resuscitation Status Routine 05/07/19 08:00 Blood Glucose Check, Bedside [RC] BIDMEALS Peripheral IV Care [RC] . DIRECTED Vital Signs [RC] PER UNIT ROUTINE Sodium Chloride 0.9% [Normal Saline] 1,000 ml IV ASDIRECTED Sodium Chloride 0.9% [Saline Flush] 10 ml FLUSH Q8HR PRN Peripheral IV Insertion Adult [OM.PC] Routine 05/07/19 08:30 Patient to Empty Bladder [RC] ASDIRECTED 05/07/19 09:00 Verify Patient Consent Obtain [RC] ASDIRECTED 05/07/19 Breakfast Nothing Per Oral Diet [DIET] - Assessment Assessment:: Dysphasia - Plan Plan:: EGD
--- NOTE | 2019-05-07 09:40 | PCM.OPNOTE ---
- General Post-Op/Procedure Note Date of Surgery/Procedure: 05/07/19 Operative Procedure(s): EGD with Biopsy and Balloon Esophageal Dilation Findings: Small Hiatal Hernia with irregularity of GE Jct and mild stricture of distal esophagus Pre Op Diagnosis: Dysphagia Post-Op Diagnosis: Hiatal Hernia. reflux esophagitis. stricture of distal esophagus Anesthesia Technique: MAC Primary Surgeon: Benjy Torres Pathology: Biopsies of Gastric Antrum and GE Jct. EBL in mLs: 3 Complications: None Condition: Good
[2019-05-07 13:22] VITALS: BP 152/78; PULSE 80
--- NOTE | 2019-05-07 15:45 | OR ---
DATE OF SURGERY: 05/07/2019 SURGEON: Benjy Torres MD PREOPERATIVE DIAGNOSIS: Dysphagia. POSTOPERATIVE DIAGNOSIS: Hiatal hernia, reflux esophagitis, distal esophageal stricture. OPERATION PERFORMED: Esophagogastroduodenoscopy with biopsy and balloon esophageal dilation. INDICATIONS FOR SURGERY: This 58-year-old female has a history of dysphagia. She also has a known history of a hiatal hernia. She is referred for upper endoscopy. FINDINGS: The patient has a small hiatal hernia approximately 2 cm in length. Her Z-line is 34 cm from the incisors. It is slightly irregular, consistent with reflux changes. There is also a mild degree of narrowing in the distal esophagus, GE junction area. No masses are noted, either extrinsic or intrinsic. The remainder of the stomach and the duodenum appeared normal. PROCEDURE IN DETAIL: The patient was taken to the operating room. She was given intravenous sedation. Her throat was topically anesthetized. The gastroscope was advanced through the mouth guard into the patient's oropharynx and then under direct visualization, this was carefully advanced down through the esophagus, stomach, and into the duodenum where examination to the 3rd portion was performed. After examining the duodenum, the scope was withdrawn back into the stomach where a complete examination including retroflexed examination of the fundus was performed. Biopsies are taken of the antrum to rule out H pylori. The GE junction is examined and the Z-line is also biopsied. Because of the patient's symptoms, a 15/16.5/18 esophageal dilating balloon is passed and the GE junction-distal esophagus area is dilated to full 54-Honduran with this dilating balloon. No evidence of any complication was noted. Reinspection of the area after dilation did not show any sign of problem. The scope is then withdrawn and removed and the patient was taken from the operating room in satisfactory condition. ESTIMATED BLOOD LOSS: 3 mL. COMPLICATIONS: None. PROGNOSIS: Good. /[id number]/MODL
== END 2019-05-07 11:05 | disposition home or self-care (01) ==
LOC: KA.SDS 07:56
PROVIDERS: ATTEND Surgery
DX: R13.10 Dysphagia, unspecified (principal); K21.0 Gastro-esophageal reflux disease with esophagitis; K22.2 Esophageal obstruction; K31.89 Other diseases of stomach and duodenum; J45.909 Unspecified asthma, uncomplicated; E11.9 Type 2 diabetes mellitus without complications; I10 Essential (primary) hypertension; M10.9 Gout, unspecified; E78.5 Hyperlipidemia, unspecified; E03.9 Hypothyroidism, unspecified; Z88.5 Allergy status to narcotic agent; Z91.018 Allergy to other foods; Z91.040 Latex allergy status; Z88.2 Allergy status to sulfonamides; Z91.048 Other nonmedicinal substance allergy status; Z79.899 Other long term (current) drug therapy; Z79.82 Long term (current) use of aspirin; Z87.891 Personal history of nicotine dependence
CPT/HCPCS: 43233; 43239; 82962; J2001; J2250; J2704; J7030

== ENCOUNTER 2020-12-29 07:57 | Day surgery (SDC) | payer MEDICAID ==
[2020-12-29] MEDS ORDERED: Sodium Chloride 0.9% 10 ML Syringe FLUSH PRN (08:00)
[2020-12-29] MEDS ORDERED: Sodium Chloride 0.9% 1,000 ML IV SCH (08:00)
[2020-12-29] MEDS ORDERED: Lidocaine 2% 100 MG/5 ML Syringe ONE (08:54)
[2020-12-29] MEDS ORDERED: Propofol 200 MG/20 ML SDV ONE (08:54)
[2020-12-29] MEDS ORDERED: Glycopyrrolate 0.2 MG/ML SDV ONE ×2 (08:54→08:55)
[2020-12-29] MEDS ORDERED: Midazolam 1 MG/ML 2 ML SDV ONE (08:54)
--- NOTE | 2020-12-29 09:12 | PCM.PN ---
- General Info Date of Service: 12/29/20 - Review of Systems Systems Review Comment:: 60-year-old female referred for EGD. She has a history of dysphagia. Previous EGD in 2019 did demonstrate distal esophageal stenosis and dilation was performed at that time. She is medically stable to proceed today. Her recent history and physical is reviewed and no significant changes are noted. She agrees to proceed. She accepts risks. - Patient Data Vitals - Most Recent: Last Vital Signs Temp 96.6 F L 12/29/20 08:15 Pulse 86 12/29/20 08:15 Resp 18 12/29/20 08:15 BP 175/97 H 12/29/20 08:15 Pulse Ox 97 12/29/20 08:15 Weight - Most Recent: 92.079 kg Lab Results Last 24 Hours: Laboratory Results - last 24 hr 12/29/20 Range/Units 08:16 POC Glucose 130 (70-140) mg/dL Med Orders - Current: Current Medications Sodium Chloride (Normal Saline) 1,000 mls @ 50 mls/hr IV ASDIRECTED [facility] Last Admin: 12/29/20 08:35 Dose: 50 mls/hr Documented by: Sodium Chloride (Sodium Chloride 0.9% 10 Ml Syringe) 10 ml FLUSH Q8HR PRN PRN Reason: keep vein open Discontinued Medications Glycopyrrolate (Glycopyrrolate 0.2 Mg/Ml Sdv) Confirm Administered Dose 0.2 mg .ROUTE .STK-MED ONE Stop: 12/29/20 08:55 Glycopyrrolate (Glycopyrrolate 0.2 Mg/Ml Sdv) Confirm Administered Dose 0.2 mg .ROUTE .STK-MED ONE Stop: 12/29/20 08:56 Lidocaine HCl (Lidocaine 2% 100 Mg/5 Ml Syringe) Confirm Administered Dose 100 mg .ROUTE .STK-MED ONE Stop: 12/29/20 08:55 Midazolam HCl (Midazolam 1 Mg/Ml 2 Ml Sdv) Confirm Administered Dose 2 mg .ROUTE .STK-MED ONE Stop: 12/29/20 08:55 Propofol (Propofol 200 Mg/20 Ml Sdv) Confirm Administered Dose 200 mg .ROUTE .STK-MED ONE Stop: 12/29/20 08:55 - Patient Data Lab Results Last 24 hrs: Laboratory Results - last 24 hr 12/29/20 Range/Units 08:16 POC Glucose 130 (70-140) mg/dL Sepsis Event Note - Focused Exam Vital Signs: Vital Signs Temp Pulse Resp BP Pulse Ox 12/29/20 08:15 96.6 F L 86 18 175/97 H 97 - Problem List Review Problem List Initiated/Reviewed/Updated: Yes - My Orders Last 24 Hours: My Active Orders 12/28/20 16:01 Resuscitation Status Routine 12/29/20 08:00 Blood Glucose Check, Bedside [RC] UPON Peripheral IV Care [RC] . DIRECTED Nothing Per Oral Diet [DIET] Sodium Chloride 0.9% [Normal Saline] 1,000 ml IV ASDIRECTED Sodium Chloride 0.9% [Saline Flush] 10 ml FLUSH Q8HR PRN Peripheral IV Insertion Adult [OM.PC] Routine 12/29/20 08:30 Patient to Empty Bladder [RC] ASDIRECTED 12/29/20 09:00 Verify Patient Consent Obtain [RC] ASDIRECTED - Assessment Assessment:: Dysphagia - Plan Plan:: EGD
--- NOTE | 2020-12-29 09:45 | PCM.OPNOTE ---
- General Post-Op/Procedure Note Date of Surgery/Procedure: 12/29/20 Operative Procedure(s): EGD with Biopsy and Esophageal Balloon Dilation Findings: Mild reflux esophagitis with mild stenosis of distal esophagus White patches in mid and upper esophagus suggestive of jose carlos esophagitis Pre Op Diagnosis: Dysphagia Post-Op Diagnosis: Esophageal stenosis. Esophagitis [place]est[place] [facility] [place]geon: Benjy Torres Pathology: Biopsies of gastric antrum, GE junction, and esophagus EBL in mLs: 3 Complications: None Condition: Good
[2020-12-29 11:17] VITALS: BP 175/96; PULSE 88
--- NOTE | 2020-12-29 15:37 | OR ---
DATE OF SURGERY: 12/29/2020 SURGEON: Benjy Torres MD PREOPERATIVE DIAGNOSIS: Dysphagia. POSTOPERATIVE DIAGNOSIS: Reflux esophagitis, esophageal stenosis, Marie esophagitis. OPERATION PERFORMED: Esophagogastroduodenoscopy with biopsy and esophageal balloon dilation. INDICATIONS FOR SURGERY: This 60-year-old female has been having increasing symptoms of dysphagia. She does have a history of dilation of her lower esophagus with relief of similar symptoms 2 years ago. FINDINGS: In the patient's esophagus, there is a mild degree of narrowing distally. No indication of intrinsic or extrinsic mass is identified. The patient does have a mild irregularity of the GE junction suggestive of reflux esophagitis. The patient also has a moderate to large amount of white patches in her upper esophagus and mid esophagus suggestive of Marie esophagitis. Her gastric mucosa appears normal, although a portion of this is obscured by retained food in her stomach and the duodenal lining appears normal to the 3rd portion. DESCRIPTION OF PROCEDURE: The patient is taken to the operating room. She was given intravenous sedation and with her in the left lateral decubitus position, the Olympus gastroscope was advanced through a mouth guard into the oral cavity. Under direct visualization, the scope was then advanced through the oropharynx into the esophagus. The scope was then slowly advanced down through the esophagus, stomach, and into the duodenum where examination to the 3rd portion was performed. After examining the duodenum, the scope was withdrawn back into the stomach where full examination including retroflexed examination of the fundus was carried out. Random biopsies of the antrum were taken to rule out H pylori. Because of the patient's history of dysphagia, balloon dilation of the distal esophagus was then carried out. A 15-16.5-18 mm balloon is used and the esophagus is dilated to the 18 mm size. No indication of esophageal injury was noted. The dilating balloon is then removed and biopsies of the GE junction were taken and also biopsies of the mid and upper esophagus were taken to rule out Marie esophagitis. The scope was then removed and the patient was taken from the operating room in satisfactory condition. ESTIMATED BLOOD LOSS: 2 mL. COMPLICATIONS: None. PROGNOSIS: Good. /[id number]/MODL
== END 2020-12-29 10:55 | disposition home or self-care (01) ==
LOC: KA.SDS 07:57
PROVIDERS: ATTEND Surgery
DX: K22.2 Esophageal obstruction (principal); B37.81 Candidal esophagitis; K21.00 Gastro-esophageal reflux disease with esophagitis, without bleeding; K31.89 Other diseases of stomach and duodenum; K22.8 Other specified diseases of esophagus; I10 Essential (primary) hypertension; E11.9 Type 2 diabetes mellitus without complications; Z79.899 Other long term (current) drug therapy; Z98.890 Other specified postprocedural states; Z87.891 Personal history of nicotine dependence
CPT/HCPCS: 00731; 43239; 43249; 82947; J2250; J2704; J3490; J7030

== ENCOUNTER 2021-07-16 22:30 | Inpatient (IN) | payer MEDICAID ==
[2021-07-16 23:33] LABS: ANION GAP 18.3 mmol/L (5-15); CHLORIDE,CL 101 mmol/L (98-107); SODIUM,NA 136 mmol/L (136-145)
--- NOTE | 2021-07-16 23:36 | EDM.PDOC ---
ED HPI GENERAL MEDICAL PROBLEM - General Chief Complaint: General Stated Complaint: weakness Time Seen by Provider: 07/16/21 22:30 Source of Information: Reports: Patient, EMS History Limitations: Reports: No Limitations - History of Present Illness INITIAL COMMENTS - FREE TEXT/NARRATIVE: Slime, 60-year-old female, presents by ambulance tonight with worsening issues of her right foot. She states she is out of antibiotic and feels that the infection is likely worsening. She denies any significant pain but states she has been doing dressing changes and wearing her custom-made boot for support and is using a plastic bag to keep the boot from getting wet as it continues to drain. She complains of generalized weakness having difficulty functioning and providing cares. She is living by herself with no assistance. She has difficulty in fully assessing her wounds but has been capable of changing dressings and putting new dressings on twice daily. She had a telehealth visit with Dr. Navarrete today denying the need at the time to be coming to the hospital planning for a appointment as she would have the to arrange transportation and is scheduled for Monday for a in facility [id number] visit for assessment of this chronic foot issue. She has no major exposures or risks, denies any fever but states that the leg does feel warm and sometimes. Onset: Unknown/Unsure Duration: Week(s):, Getting Worse Location: Reports: Lower Extremity, Right Quality: Reports: Pressure Severity: Severe Improves with: Reports: None Worsens with: Reports: Movement Context: Reports: Activity Associated Symptoms: Reports: No Other Symptoms right foot Pain Score (Numeric/FACES): 0 - Related Data Allergies Allergy/AdvReac Type Severity Reaction Status Date / Time animal dander Allergy Anaphylactic Verified 07/17/21 00:41 Shock banana Allergy Itching Verified 07/17/21 00:41 codeine Allergy Nausea and Verified 07/17/21 00:41 Vomiting latex Allergy Facial Verified 07/17/21 00:41 Swelling sammi flavor Allergy Anaphylactic Verified 07/17/21 00:41 Shock melon Allergy Stomach Verified 07/17/21 00:41 Ache meperidine [From Demerol] Allergy Nausea and Verified 07/17/21 00:41 Vomiting nickel Allergy Rash Verified 07/17/21 00:41 Sulfa (Sulfonamide Allergy Vomiting Verified 07/17/21 00:41 Antibiotics) sulfacetamide Allergy Vomiting Verified 07/17/21 00:41 [From Sulfamide] Home Meds: Home Meds Allopurinol [Zyloprim] 600 mg PO BEDTIME 02/28/17 [History] Losartan Potassium 100 mg PO DAILY 02/28/17 [History] Acetaminophen [Tylenol] 650 mg PO Q6H PRN 05/28/18 [History] Albuterol [Ventolin HFA] 1 - 2 puff INH Q4H PRN 05/28/18 [History] Calcium Carbonate [Calcium] 1,000 mg PO DAILY PRN 05/28/18 [History] L. Acidophilus/L.bulgaricus [Lactobacillus Tablet] 1 tab PO DAILY 05/28/18 [History] Loratadine [Claritin] 10 mg PO DAILY 05/28/18 [History] Multivitamin with Minerals [Multivitamins with Minerals] 1 tab PO DAILY 05/28/18 [History] Oxybutynin [Oxybutynin ER] 10 mg PO BEDTIME 05/28/18 [History] Pantoprazole Sodium [Protonix] 40 mg PO ACBREAKFAST 05/28/18 [History] Thyroid,Pork [Story Thyroid] 150 mg PO ACBREAKFAST 05/28/18 [History] tiZANidine [Zanaflex] 6 mg PO BEDTIME PRN 06/01/18 [History] Calcium Carbonate/Vitamin D3 [Calcium 600 + Vit D Tablet] 2 tab PO DAILY 05/03/19 [History] Diclofenac Sodium [Voltaren] 50 mg PO BIDMEALS 05/03/19 [History] Fish Oil/[place]-3 Fatty Acids [Fish Oil 1,000 MG] 1 cap PO DAILY 05/03/19 [History] Glucosam/Chond/Collagen/Hyalur [Glucosamine Chondroitin] 1 tab PO DAILY 05/03/19 [History] Hydroxychloroquine Sulfate 200 mg PO BIDMEALS 05/03/19 [History] cephALEXin [Keflex] 250 mg PO BID 05/03/19 [History] diphenhydrAMINE [Benadryl] 25 mg PO Q4H PRN 05/03/19 [History] predniSONE [Prednisone] 20 mg PO QAM 05/03/19 [History] Ascorbic Acid [Vitamin C] 1,000 mg PO DAILY 12/28/20 [History] Carboxymethylcellulose Sodium [Artificial Tears] 1 drop EYEBOTH Q4H PRN 12/28/20 [History] Empagliflozin [Jardiance] 10 mg PO DAILY 12/28/20 [History] Insulin Aspart [NovoLOG] 0 unit SUBCUT WITHMEALSANDBED 12/28/20 [History] Insulin Glarg,Human.Rec.Analog [Lantus Solostar] 26 unit SUBCUT DAILY 12/28/20 [History] Liraglutide [Victoza 2-Javier] 1.8 mg SQ DAILY 12/28/20 [History] Magnesium 250 mg PO DAILY 12/28/20 [History] Netarsudil Mesylat/Latanoprost [Rocklatan 0.02%-0.005% Eye Drp] 1 drop OP DAILY 12/28/20 [History] amLODIPine Besylate [Amlodipine Besylate] 10 mg PO DAILY 12/28/20 [History] carvediloL [Carvedilol] 12.5 mg PO QPM 12/28/20 [History] carvediloL [Carvedilol] 25 mg PO QAM 12/28/20 [History] predniSONE [Prednisone] 10 mg PO QPM 12/28/20 [History] Aspirin [Aspirin EC] 325 mg PO DAILY 07/16/21 [History] Timolol Maleate/PF [Timolol Maleate 0.5% Eye Drop] 1 each OP BEDTIME 07/16/21 [History] busPIRone HCl [Buspirone HCl] 10 mg PO BEDTIME 07/16/21 [History] Past Medical History HEENT History: Reports: Cataract, Glaucoma, Impaired Vision Cardiovascular History: Reports: High Cholesterol, Hypertension Respiratory History: Reports: Asthma, Bronchitis, Recurrent, Sleep Apnea Gastrointestinal History: Reports: GERD, GI Bleed, Hemorrhoids, Helicobacter Pylori, Hiatal Hernia, Irritable Bowel Syndrome, Other (See Below) Other Gastrointestinal History: stomach ulcer Genitourinary History: Reports: Other (See Below) Other Genitourinary History: diabetic kidney disease [employer] History: Reports: Polycystic Ovaries, , Spontaneous Musculoskeletal History: Reports: Fibromyalgia, Gout, Osteoarthritis, Osteoporosis, RA Neurological History: Reports: Concussion, Neuropathy, Diabetic Psychiatric History: Reports: Depression Endocrine/Metabolic History: Reports: Diabetes, Type II, Hypothyroidism, IDDM, Obesity/BMI 30+, Osteoporosis Hematologic History: Reports: Anesthesia Reaction, Blood Transfusion(s) Immunologic History: Reports: None Oncologic (Cancer) History: Reports: Other (See Below) Other Oncologic History: pre-cancerous growths on uterus and ovaries Dermatologic History: Reports: Cellulitis, Other (See Below) Other Dermatologic History: edema - Infectious Disease History Infectious Disease History: Reports: Chicken Pox, Helicobacter Pylori, Influenza, Measles, Mononucleosis, Mumps, Pertussis (Whooping Cough), Shingles, Other (See Below) - Past Surgical History Head Surgeries/Procedures: Reports: None HEENT Surgical History: Reports: Adenoidectomy, Eye Surgery, Oral Surgery, Tonsillectomy Cardiovascular Surgical History: Reports: None Respiratory Surgical History: Reports: None GI Surgical History: Reports: Colonoscopy, EGD Female Surgical History: Reports: Hysterectomy Endocrine Surgical History: Reports: None Neurological Surgical History: Reports: None Musculoskeletal Surgical History: Reports: Carpal Tunnel Dermatological Surgical History: Reports: None Social & Family History - Family History Family Medical History: No Pertinent Family History - Tobacco Use Tobacco Use Status *Q: Never Tobacco User - Caffeine Use Caffeine Use: Reports: Coffee - Recreational Drug Use Recreational Drug Use: No ED ROS GENERAL - Review of Systems Review Of Systems: Comprehensive ROS is negative, except as noted in HPI. ED EXAM, GENERAL - Physical Exam Exam: See Below Free Text/Narrative:: Alert oriented in no acute distress. HEENT is negative discharge or deformity with pink moist mucous membranes. There is no cyanosis nor pallor. She has a very short lora neck limiting auscultation or assessment of JVD with no noted rigidity. Thorax is clear with no wheezes nor crackles. Cardiac is regular I do not appreciate any murmur. Abdomen is rotund soft no tenderness. Lower extremities are extremely dark in color with compression stockings and support boots removed. Right lower extremity is slightly warmer to touch than left. On the right foot medial aspect to the heel is a 3.5 x 2 ulcer that is draining serous blood-tinged fluid. On the left there is a noted thickening of the tissue to the arch of the foot again on the medial aspect which she states she is uncertain as to what is going on with that. She states that the ulceration open area to the right foot has been worsening and becoming deeper with time. The wound to the right foot has a eschar appearance that is roughly 4 mm surrounding it with somewhat dusky tissue appearance on the outside of that. Sensation is somewhatSensation is somewhat Diminishedto palpation. Course - Vital Signs Last Recorded V/S: Last Vital Signs Temp 98 F 07/17/21 00:10 Pulse 86 07/17/21 00:10 Resp 18 07/17/21 00:10 BP 143/87 H 07/17/21 00:10 Pulse Ox 97 07/17/21 00:10 - Orders/Labs/Meds Orders: Active Orders 24 hr Category Date Time Status Patient Status [ADT] Routine ADT 07/16/21 23:41 Active Peripheral IV Care [RC] Care 07/16/21 22:59 Active Chest 1V Frontal [CR] Stat Exams 07/16/21 22:50 Ordered Foot 2V Rt [CR] Stat Exams 07/16/21 22:50 Ordered CULTURE BLOOD [BC] Stat Lab 07/16/21 22:50 Received CULTURE BLOOD [BC] Stat Lab 07/16/21 22:50 Received CULTURE WOUND + SMEAR [RM] Stat Lab 07/16/21 22:51 Ordered Pharmacy to Dose - Vancomycin Med 07/16/21 23:45 Pending 1 dose .XX ASDIRECTED Piperacillin/Tazobactam/Dext [Zosyn in Dextrose Iso- Med 07/16/21 23:45 Active Osmotic 3.375 GM/50 ML] 3.375 gm Premix Bag 1 bag IV Q6H Sodium Chloride 0.9% [Saline Flush] Med 07/16/21 22:59 Active 10 ml FLUSH Q8HR PRN Blood Culture x2 Reflex Set [OM.PC] Stat Oth 07/16/21 22:59 Ordered Peripheral IV Insertion Adult [OM.PC] Stat Oth 07/16/21 22:59 Ordered Code Status [Resuscitation Status] Stat Resus Stat 07/16/21 23:48 Ordered Medication Orders Piperacillin/Tazobactam/ (Dextrose 3.375 gm/ Premix) 50 mls @ 100 mls/hr IV Q6H MALENA Vancomycin HCl 1 gm/ Sodium (Chloride) 250 mls @ 166.667 mls/hr IV Q12H MALENA Sodium Chloride (Normal Saline) 100 mls @ 125 mls/hr IV ASDIRECTED MALENA Sodium Chloride (Sodium Chloride 0.9% 10 Ml Syringe) 10 ml FLUSH Q8HR PRN PRN Reason: keep vein open Vancomycin HCl (Pharmacy To Dose - Vancomycin) 1 dose .XX ASDIRECTED [facility] Labs: Laboratory Tests 07/16/21 07/16/21 07/16/21 Range/Units 22:40 22:40 22:40 WBC 6.02 (5.00-10.00) 10^3/uL RBC 3.93 (3.80-5.50) 10^6/uL Hgb 11.6 L D (12.0-16.0) g/dL Hct 36.2 L (37.0-47.0) % MCV 92.1 H (82.0-92.0) fL MCH 29.5 (27.0-31.0) pg MCHC 32.0 (32.0-36.0) g/dL RDW 15.7 H (11.5-14.5) % Plt Count 329 D (150-400) 10^3/uL MPV 8.8 (7.4-10.4) fL Immature Gran % (Auto) 0.2 (0.0-5.0) % Neut % (Auto) 67.2 (50.0-70.0) % Lymph % (Auto) 21.3 (20.0-40.0) % Benson % (Auto) 10.8 H (2.0-8.0) % Eos % (Auto) 0.3 L (1.0-3.0) % Baso % (Auto) 0.2 (0.0-1.0) % Neut # (Auto) 4.05 (2.50-7.00) 10^3/uL Lymph # (Auto) 1.28 (1.00-4.00) 10^3/uL Benson # (Auto) 0.65 (0.10-0.80) 10^3/uL Eos # (Auto) 0.02 L (0.10-0.30) 10^3/uL Baso # (Auto) 0.01 (0.00-0.10) 10^3/uL Immature Gran # (Auto) 0.01 (0.00-0.50) 10^3/uL Sodium 136 (136-145) mmol/L Potassium 4.7 (3.5-5.1) mmol/L Chloride 101 (98-107) mmol/L Carbon Dioxide 21.4 (21.0-32.0) mmol/L Anion Gap 18.3 H (5-15) mmol/L BUN 28 H (7-18) mg/dL Creatinine 0.68 (0.51-1.17) mg/dL Est Cr Clr Drug Dosing 72.78 mL/min Estimated GFR (MDRD) > 60 mL/min Glucose 138 (70-140) mg/dL Lactic Acid 0.9 (0.4-2.0) mmol/L Calcium 8.6 L (8.7-10.3) mg/dL Total Bilirubin 0.3 (0.2-1.0) mg/dL AST 25 (15-37) U/L ALT 69 H (14-63) U/L Alkaline Phosphatase 141 H (46-116) U/L Troponin I High Sens 14.200 (0-51.000) pg/mL C-Reactive Protein 0.4 (0.0-0.9) mg/dL Total Protein 5.7 L (6.4-8.2) g/dL Albumin 2.78 L (3.40-5.00) g/dL SARS CoV-2 RNA Rapid ARTI (NEGATIVE) 07/16/21 Range/Units 22:50 WBC (5.00-10.00) 10^3/uL RBC (3.80-5.50) 10^6/uL Hgb (12.0-16.0) g/dL Hct (37.0-47.0) % MCV (82.0-92.0) fL MCH (27.0-31.0) pg MCHC (32.0-36.0) g/dL RDW (11.5-14.5) % Plt Count (150-400) 10^3/uL MPV (7.4-10.4) fL Immature Gran % (Auto) (0.0-5.0) % Neut % (Auto) (50.0-70.0) % Lymph % (Auto) (20.0-40.0) % Benson % (Auto) (2.0-8.0) % Eos % (Auto) (1.0-3.0) % Baso % (Auto) (0.0-1.0) % Neut # (Auto) (2.50-7.00) 10^3/uL Lymph # (Auto) (1.00-4.00) 10^3/uL Benson # (Auto) (0.10-0.80) 10^3/uL Eos # (Auto) (0.10-0.30) 10^3/uL Baso # (Auto) (0.00-0.10) 10^3/uL Immature Gran # (Auto) (0.00-0.50) 10^3/uL Sodium (136-145) mmol/L Potassium (3.5-5.1) mmol/L Chloride (98-107) mmol/L Carbon Dioxide (21.0-32.0) mmol/L Anion Gap (5-15) mmol/L BUN (7-18) mg/dL Creatinine (0.51-1.17) mg/dL Est Cr Clr Drug Dosing mL/min Estimated GFR (MDRD) mL/min Glucose (70-140) mg/dL Lactic Acid (0.4-2.0) mmol/L Calcium (8.7-10.3) mg/dL Total Bilirubin (0.2-1.0) mg/dL AST (15-37) U/L ALT (14-63) U/L Alkaline Phosphatase (46-116) U/L Troponin I High Sens (0-51.000) pg/mL C-Reactive Protein (0.0-0.9) mg/dL Total Protein (6.4-8.2) g/dL Albumin (3.40-5.00) g/dL SARS CoV-2 RNA Rapid ARTI Negative (NEGATIVE) Meds: Medications Generic Name Dose Route Start Last Admin Trade Name Freq PRN Reason Stop Dose Admin Piperacillin/Tazobactam/ 50 mls @ 100 mls/hr 07/16/21 23:45 Dextrose 3.375 gm/ Premix IV Q6H MALENA Vancomycin HCl 1 gm/ Sodium 250 mls @ 166.667 mls/hr 07/17/21 00:01 Chloride IV Q12H MALENA Sodium Chloride 100 mls @ 125 mls/hr 07/17/21 01:00 Normal Saline IV ASDIRECTED MALENA Sodium Chloride 10 ml 07/16/21 22:59 Sodium Chloride 0.9% 10 Ml Syringe FLUSH Q8HR PRN keep vein open Vancomycin HCl 1 dose 07/16/21 23:45 Pharmacy To Dose - Vancomycin .XX ASDIRECTED MALENA - Re-Assessments/Exams Free Text/Narrative Re-Assessment/Exam: 07/16/21 23:32 Upon receiving phone notification and written report showing severe destructive changes of the hindfoot likely on the basis of advanced septic arthritis and osteomyelitis, multiple pockets of gas within the soft tissue compatible with a necrotizing process. I discussed in detail with Slime that this is a consideration for an amputation process to which she adamantly refuses saying "just kill me." I explained that this is a long-term treatment process and it still does not correct the underlying process of the osteomyelitis with other comorbid issues. Long-term antibiotics only keeps it at bay but does not treat the destruction it is occurred in the past and would be severely limiting to the overall status. She again reiterates that she would not be willing to undergo surgery/amputation and that she would be willing to accept antibiotic regimen at this time and be reevaluated. I do explained that it may require further scanning has we will need to do additional x-rays tomorrow and that also if possible at next week an MRI would need to be performed. She does agree that she is DNR at this time and would continue that status but does not have paperwork with her. I advised that I would bring in [facility] form for physician orders for life-sustaining treatment and we would go through it [id number] assuring that she would remain DNR with likely the limit of interventions and reversible conditions attempt. She is willing to go through this form at this time as she will require antibiotic regimen and admission to the hospital. Departure - Departure Time of Disposition: 00:34 Disposition: Admitted As Inpatient 66 Condition: Fair Clinical Impression: Necrotizing cellulitis, COVID-19 ruled out by laboratory testing, Weakness Osteomyelitis Qualifiers: Osteomyelitis type: other chronic Ulcer of right foot Qualifiers: Non-pressure ulcer stage: unspecified non-pressure ulcer stage Qualified Code(s): L97.519 - Non-pressure chronic ulcer of other part of right foot with unspecified severity - Discharge Information *PRESCRIPTION DRUG MONITORING PROGRAM REVIEWED*: Not Applicable *COPY OF PRESCRIPTION DRUG MONITORING REPORT IN PATIENT MITCHELL: Not Applicable Sepsis Event Note (ED) - Evaluation Sepsis Screening Result: No Definite Risk - Focused Exam Vital Signs: Vital Signs Temp Pulse Resp BP Pulse Ox 07/16/21 23:33 84 19 140/93 H 98 07/16/21 23:00 87 17 123/89 95 07/16/21 22:43 96.6 F L 92 18 149/87 H 96 - Problem List & Annotations (1) Ulcer of right foot SNOMED Code(s): 791084074 Code(s): L97.519 - NON-PRS CHRONIC ULCER OTH PRT RIGHT FOOT W UNSP SEVERITY Status: Acute Priority: High Current Visit: Yes Qualifiers: Non-pressure ulcer stage: unspecified non-pressure ulcer stage Qualified Code(s): L97.519 - Non-pressure chronic ulcer of other part of right foot with unspecified severity (2) Osteomyelitis SNOMED Code(s): 36993522 Code(s): M86.9 - OSTEOMYELITIS, UNSPECIFIED Status: Acute Priority: High Current Visit: Yes Qualifiers: Osteomyelitis type: other chronic (3) Necrotizing cellulitis SNOMED Code(s): 90097724 Code(s): L03.90 - CELLULITIS, UNSPECIFIED Status: Acute Priority: High Current Visit: Yes (4) Diabetes mellitus SNOMED Code(s): 45144430 Code(s): E11.9 - TYPE 2 DIABETES MELLITUS WITHOUT COMPLICATIONS Status: Acute Priority: High Current Visit: No Qualifiers: Diabetes mellitus type: type 2 Diabetes mellitus complication status: with skin complications Diabetes mellitus complication detail: with foot ulcer (5) COVID-19 ruled out by laboratory testing SNOMED Code(s): 237700307260424163, 146024616656898445 Code(s): Z20.822 - CONTACT WITH AND (SUSPECTED) EXPOSURE TO COVID-19 Status: Acute Current Visit: Yes - Problem List Review Problem List Initiated/Reviewed/Updated: Yes - My Orders Last 24 Hours: My Active Orders 07/16/21 22:50 Chest 1V Frontal [CR] Stat Foot 2V Rt [CR] Stat CULTURE BLOOD [BC] Stat CULTURE BLOOD [BC] Stat 07/16/21 22:51 CULTURE WOUND + SMEAR [RM] Stat 07/16/21 22:59 Peripheral IV Care [RC] Sodium Chloride 0.9% [Saline Flush] 10 ml FLUSH Q8HR PRN Blood Culture x2 Reflex Set [OM.PC] Stat Peripheral IV Insertion Adult [OM.PC] Stat 07/16/21 23:41 Patient Status [ADT] Routine 07/16/21 23:45 Pharmacy to Dose - Vancomycin 1 dose .XX ASDIRECTED Piperacillin/Tazobactam/Dext [Zosyn in Dextrose Iso-Osmotic 3.375 GM/50 ML] 3.375 gm Premix Bag 1 bag IV Q6H 07/16/21 23:48 Code Status [Resuscitation Status] Stat - Assessment/Plan Admission H&P: Please use this note as an admission H&P Last 24 Hours: My Active Orders 07/16/21 22:50 Chest 1V Frontal [CR] Stat Foot 2V Rt [CR] Stat CULTURE BLOOD [BC] Stat CULTURE BLOOD [BC] Stat 07/16/21 22:51 CULTURE WOUND + SMEAR [RM] Stat 07/16/21 22:59 Peripheral IV Care [RC] Sodium Chloride 0.9% [Saline Flush] 10 ml FLUSH Q8HR PRN Blood Culture x2 Reflex Set [OM.PC] Stat Peripheral IV Insertion Adult [OM.PC] Stat 07/16/21 23:41 Patient Status [ADT] Routine 07/16/21 23:45 Pharmacy to Dose - Vancomycin 1 dose .XX ASDIRECTED Piperacillin/Tazobactam/Dext [Zosyn in Dextrose Iso-Osmotic 3.375 GM/50 ML] 3.375 gm Premix Bag 1 bag IV Q6H 07/16/21 23:48 Code Status [Resuscitation Status] Stat Plan: Plan for an acute admission starting on antibiotic with patient declining consult for potential amputation. Dr Navarrete.
[2021-07-17] MEDS: Piperacillin/Tazobactam/Dext 3.375 GM in Premix Bag 1 BAG IV SCH ×5 (00:45→23:47)
[2021-07-17] MEDS: Sodium Chloride 0.9% 100 ML IV SCH ×2 (00:45→05:30)
[2021-07-17] MEDS ORDERED: Ibuprofen 400 MG Tab PO PRN (01:43)
[2021-07-17] MEDS: Acetaminophen 325 MG Tab PO PRN ×3 (01:59→22:49)
[2021-07-17] MEDS: Insulin Glargine,Hum.Rec.Anlog 100 UNIT/ML 3 ML Pen SUBCUT SCH ×3 (02:00→21:42)
[2021-07-17] MEDS ORDERED: Glucagon,Human Recombinant 1 MG Vial IM PRN ×2 (02:33→11:27)
[2021-07-17] MEDS ORDERED: 50% Dextrose in Water 50 ML Syringe IVPUSH PRN ×2 (02:33→11:27)
[2021-07-17] MEDS: Insulin Aspart 100 Units/ML 3 ML Pen SUBCUT SCH ×6 (08:49→21:38)
[2021-07-17] MEDS: Pantoprazole 40 MG Tab.CR PO SCH (08:49)
--- NOTE | 2021-07-17 09:13 | CR ---
[id number] RAD/RAD Chest Portable EXAM: PORTABLE CHEST INDICATION: FOOT ULCER COMPARISON: August 24, 2018. DISCUSSION: The lungs are hypoinflated with mild bibasilar atelectasis limiting assessment for infiltrates. No definite acute infiltrates. Borderline heart size without evidence of edema. No effusions. IMPRESSION: 1. Low lung volumes. Leonidas Chung MD 07/17/21 0912 Thank you for allowing us to participate in the care of your patient.
--- NOTE | 2021-07-17 09:17 | CR ---
[id number] RAD/RAD Foot Right 2V EXAM: RAD Foot Right 2V INDICATION: FOOT ULCER COMPARISON: Ankle radiographs of January 22, 2018. DISCUSSION: Advanced fragmentation and collapse of the hindfoot and to a lesser extent midfoot with collapse and presumed osteolysis of portions of the distal fibula, distal tibia, talus, anterior calcaneus and proximal tarsal row. Soft tissue ulceration medially extending to the osseous structures of the hindfoot. These findings suggest septic arthritis/osteomyelitis, but may in part relate to Charcot arthropathy. Significant soft tissue gas in the distal leg along the tibia and in the foot dorsum suggests necrotizing infection. Mild osteopenia. Arterial calcifications. IMPRESSION: 1. Findings suggestive of ankle/hindfoot septic arthritis/osteomyelitis with significant osteolysis and fragmentation of multiple bones. 2. Soft tissue gas in the distal leg and in the hindfoot/midfoot suggestive of necrotizing infection. Leonidas Chung MD 07/17/21 0916 Thank you for allowing us to participate in the care of your patient.
[2021-07-17] MEDS ORDERED: Calcium Carbonate 500 MG Tab.Chew PO PRN (11:27)
[2021-07-17] MEDS ORDERED: diphenhydrAMINE 25 MG Cap PO PRN (11:27)
[2021-07-17] MEDS ORDERED: Carboxymethylcellulose Sodium 0.5% Ophth Soln 15 ML Bottle EYEBOTH PRN (11:27)
[2021-07-17] MEDS ORDERED: Acetaminophen 325 MG Tab PO PRN (11:27)
[2021-07-17] MEDS ORDERED: tiZANidine 4 MG Tab PO PRN (11:27)
[2021-07-17] MEDS ORDERED: EMPAGLIFLOZIN 10 MG PO SCH (11:30)
[2021-07-17] MEDS ORDERED: Insulin Glargine,Hum.Rec.Anlog 100 UNIT/ML 3 ML Pen SUBCUT SCH (11:30)
--- NOTE | 2021-07-17 12:35 | PCM.PN ---
- General Info Date of Service: 07/17/21 Admission Dx/Problem (Free Text): Chronic foot infection with osteomyelitis. - Review of Systems Systems Review Comment:: 07/17/2021: Slime was admitted through the ER on 07/16 after having a telehealth visit with me earlier that day encouraged her to see ER evaluation and treatment. She was generally feeling unwell. She has a hx of a diabetic foot ulcer on the right that she has had debridement on in the past as well as many weeks of antibiotics. She has been septic from this in the past. She has not been seen in person since December of 2020 having done several telehealth visits for diabetes, HTN but not really about her foot. She is on chronic Keflex 250 mg PO daily for prophylaxis. She recently finished a 14 day course of Bactrim, Keflex and ciprofloxacin based on previous sensitivity results but nothing current. She stated that maybe she just needed to be on the antibiotics longer. In the ER she was noted to have a 2.5 x 3 cm ulcer to her medial foot just inferior to her great toe. She does have Charcot foot as well and is not very mobile. X- ray was done an reported ankle/hind foot septic arthritis/osteomyelitis with gas in the distal leg and hind foot suggestive of a necrotizing infection. Slime was counseled that due to the chronic nature of this we can admit her for antibiotics but she will likely benefit from an amputation to which she states "then I'll just end up in the residential and what life is that, I may as well blow my brains out." Then she asks me to give her morphine as an overdose "so I can just go to sleep". She then states "I would never do that but it just feels hopeless." She states her mother ended up have several amputations over times and had no quality of life and she does not want that. Wound and blood cultures were obtained and she was started on Vancomycin and Zosyn for broad coverage. She has no questions today. - Patient Data Vitals - Most Recent: Last Vital Signs Temp 98.4 F 07/17/21 07:01 Pulse 90 07/17/21 07:01 Resp 16 07/17/21 07:01 BP 146/85 H 07/17/21 07:01 Pulse Ox 96 07/17/21 07:01 Weight - Most Recent: 199 lb 7 oz I&O - Last 24 Hours: Intake & Output 07/16/21 07/17/21 07/17/21 22:59 06:59 14:59 Intake Total 595 Balance 595 Lab Results Last 24 Hours: Laboratory Results - last 24 hr 07/16/21 07/16/21 07/16/21 Range/Units 22:40 22:40 22:40 WBC 6.02 (5.00-10.00) 10^3/uL RBC 3.93 (3.80-5.50) 10^6/uL Hgb 11.6 L D (12.0-16.0) g/dL Hct 36.2 L (37.0-47.0) % MCV 92.1 H (82.0-92.0) fL MCH 29.5 (27.0-31.0) pg MCHC 32.0 (32.0-36.0) g/dL RDW 15.7 H (11.5-14.5) % Plt Count 329 D (150-400) 10^3/uL MPV 8.8 (7.4-10.4) fL Immature Gran % (Auto) 0.2 (0.0-5.0) % Neut % (Auto) 67.2 (50.0-70.0) % Lymph % (Auto) 21.3 (20.0-40.0) % [place] % (Auto) 10.8 H (2.0-8.0) % Eos % (Auto) 0.3 L (1.0-3.0) % Baso % (Auto) 0.2 (0.0-1.0) % Neut # (Auto) 4.05 (2.50-7.00) 10^3/uL Lymph # (Auto) 1.28 (1.00-4.00) 10^3/uL [place] # (Auto) 0.65 (0.10-0.80) 10^3/uL Eos # (Auto) 0.02 L (0.10-0.30) 10^3/uL Baso # (Auto) 0.01 (0.00-0.10) 10^3/uL Immature Gran # (Auto) 0.01 (0.00-0.50) 10^3/uL Sodium 136 (136-145) mmol/L Potassium 4.7 (3.5-5.1) mmol/L Chloride 101 (98-107) mmol/L Carbon Dioxide 21.4 (21.0-32.0) mmol/L Anion Gap 18.3 H (5-15) mmol/L BUN 28 H (7-18) mg/dL Creatinine 0.68 (0.51-1.17) mg/dL Est Cr Clr Drug Dosing 72.78 mL/min Estimated GFR (MDRD) > 60 mL/min Glucose 138 (70-140) mg/dL POC Glucose (70-140) mg/dL Lactic Acid 0.9 (0.4-2.0) mmol/L Calcium 8.6 L (8.7-10.3) mg/dL Total Bilirubin 0.3 (0.2-1.0) mg/dL AST 25 (15-37) U/L ALT 69 H (14-63) U/L Alkaline Phosphatase 141 H (46-116) U/L Troponin I High Sens 14.200 (0-51.000) pg/mL C-Reactive Protein 0.4 (0.0-0.9) mg/dL Total Protein 5.7 L (6.4-8.2) g/dL Albumin 2.78 L (3.40-5.00) g/dL SARS CoV-2 RNA Rapid ARTI (NEGATIVE) 07/16/21 07/17/21 Range/Units 22:50 08:10 WBC (5.00-10.00) 10^3/uL RBC (3.80-5.50) 10^6/uL Hgb (12.0-16.0) g/dL Hct (37.0-47.0) % MCV (82.0-92.0) fL MCH (27.0-31.0) pg MCHC (32.0-36.0) g/dL RDW (11.5-14.5) % Plt Count (150-400) 10^3/uL MPV (7.4-10.4) fL Immature Gran % (Auto) (0.0-5.0) % Neut % (Auto) (50.0-70.0) % Lymph % (Auto) (20.0-40.0) % [place] % (Auto) (2.0-8.0) % Eos % (Auto) (1.0-3.0) % Baso % (Auto) (0.0-1.0) % Neut # (Auto) (2.50-7.00) 10^3/uL Lymph # (Auto) (1.00-4.00) 10^3/uL [place] # (Auto) (0.10-0.80) 10^3/uL Eos # (Auto) (0.10-0.30) 10^3/uL Baso # (Auto) (0.00-0.10) 10^3/uL Immature Gran # (Auto) (0.00-0.50) 10^3/uL Sodium (136-145) mmol/L Potassium (3.5-5.1) mmol/L Chloride (98-107) mmol/L Carbon Dioxide (21.0-32.0) mmol/L Anion Gap (5-15) mmol/L BUN (7-18) mg/dL Creatinine (0.51-1.17) mg/dL Est Cr Clr Drug Dosing mL/min Estimated GFR (MDRD) mL/min Glucose (70-140) mg/dL POC Glucose 81 (70-140) mg/dL Lactic Acid (0.4-2.0) mmol/L Calcium (8.7-10.3) mg/dL Total Bilirubin (0.2-1.0) mg/dL AST (15-37) U/L ALT (14-63) U/L Alkaline Phosphatase (46-116) U/L Troponin I High Sens (0-51.000) pg/mL C-Reactive Protein (0.0-0.9) mg/dL Total Protein (6.4-8.2) g/dL Albumin (3.40-5.00) g/dL SARS CoV-2 RNA Rapid ARTI Negative (NEGATIVE) Med Orders - Current: Current Medications Acetaminophen (Acetaminophen 325 Mg Tab) 650 mg PO Q6H PRN PRN Reason: Pain Last Admin: 07/17/21 11:59 Dose: 650 mg Documented by: Albuterol (Albuterol 8 Gm Inhaler) 0 gm INH Q4H PRN PRN Reason: Shortness of Breath Allopurinol (Allopurinol 100 Mg Tab) 600 mg PO BEDTIME [facility] Amlodipine Besylate (Amlodipine 5 Mg Tab) 10 mg PO DAILY [facility] Artificial Tears (Carboxymethylcellulose Sodium 0.5% Ophth Soln 15 Ml Bottle) 0 ml EYEBOTH Q4H PRN PRN Reason: Dry Eyes Ascorbic Acid (Ascorbic Acid 500 Mg Tab) 1,000 mg PO DAILY [facility] Aspirin (Aspirin 325 Mg Tab.Ec) 325 mg PO DAILY [facility] Buspirone HCl (Buspirone 10 Mg Tab) 10 mg PO BEDTIME [facility] Calcium Carbonate/Glycine (Calcium Carbonate 500 Mg Tab.Chew) 1,000 mg PO DAILY PRN PRN Reason: Heartburn Calcium Citrate (Calcium Citrate/Vitamin D3 315 Mg-250 Unit Tab) 2 tab PO DAILY [facility] Carvedilol (Carvedilol 12.5 Mg Tab) 12.5 mg PO QPM [facility] Carvedilol (Carvedilol 12.5 Mg Tab) 25 mg PO QAM [facility] Dextrose/Water (50% Dextrose In Water 50 Ml Syringe) 50 ml IVPUSH ASDIRECTED PRN PRN Reason: Hypoglycemia Diclofenac Sodium (Diclofenac Sodium 50 Mg Tab.Ec) 50 mg PO BIDMEALS [facility] Diphenhydramine HCl (Diphenhydramine 25 Mg Cap) 25 mg PO Q4H PRN PRN Reason: Other Enoxaparin Sodium (Enoxaparin 40 Mg/0.4 Ml Syringe) 40 mg SUBCUT DAILY [facility] Fish Oil (Fish Oil/[place]-3 Fatty Acids 1 Gm Cap) 1 gm PO DAILY [facility] Glucagon (Glucagon,Human Recombinant 1 Mg Vial) 1 mg IM ASDIRECTED PRN PRN Reason: Hypoglycemia Glucagon (Glucagon,Human Recombinant 1 Mg Vial) 1 mg IM ASDIRECTED PRN PRN Reason: Hypoglycemia Glucosamine/Chondroitin (Chondroitin/Glucosamine Cap) 1 cap PO DAILY [facility] Hydroxychloroquine Sulfate (Hydroxychloroquine 200 Mg Tab) 200 mg PO BIDMEALS [facility] Piperacillin/Tazobactam/ (Dextrose 3.375 gm/ Premix) 50 mls @ 100 mls/hr IV Q6H [facility] Last Admin: 07/17/21 11:54 Dose: 100 mls/hr Documented by: Vancomycin HCl 1 gm/ Sodium (Chloride) 250 mls @ 166.667 mls/hr IV Q12H [facility] Last Admin: 07/17/21 01:45 Dose: 166.667 mls/hr Documented by: Sodium Chloride (Normal Saline) 100 mls @ 125 mls/hr IV ASDIRECTED [facility] Last Admin: 07/17/21 05:30 Dose: 125 mls/hr Documented by: Ibuprofen (Ibuprofen 400 Mg Tab) 400 mg PO Q4H PRN PRN Reason: Pain Last Admin: 07/17/21 09:54 Dose: 400 mg Documented by: Insulin Aspart (Insulin Aspart 100 Units/Ml 3 Ml Pen) 0 unit SUBCUT WITHMEALSANDBED [facility]; Protocol Last Admin: 07/17/21 09:44 Dose: 4 units Documented by: Insulin Aspart (Insulin Aspart 100 Units/Ml 3 Ml Pen) 2 - 10 unit SUBCUT WITHMEALSANDBED [facility]; Protocol Insulin Glargine (Insulin Glargine,Hum.Rec.Anlog 100 Unit/Ml 3 Ml Pen) 26 unit SUBCUT DAILY [facility] Last Admin: 07/17/21 02:00 Dose: 26 unit Documented by: Insulin Glargine (Insulin Glargine,Hum.Rec.Anlog 100 Unit/Ml 3 Ml Pen) 26 unit SUBCUT DAILY [facility] Lactobacillus Rhamnosus (Lactobacillus Rhamnosus Gg (Probiotic) Cap) 1 cap PO DAILY [facility] Loratadine (Loratadine 10 Mg Tab) 10 mg PO DAILY [facility] Losartan Potassium (Losartan 50 Mg Tab) 100 mg PO DAILY [facility] Magnesium Oxide (Magnesium Oxide 500 Mg Tab) 250 mg PO DAILY [facility] Multivitamins/Minerals (Multivitamins With Minerals/Iron/Folic Acid/Lycopene Tab) 1 tab PO DAILY [facility] Non-Formulary Medication (Empagliflozin [Jardiance]) 10 mg PO DAILY [facility] Non-Formulary Medication (Liraglutide [Victoza 2-Javier]) 1.8 mg SQ DAILY [facility] Non-Formulary Medication (Netarsudil Mesylat/Latanoprost [Rocklatan 0.02%-0.005% Eye Drp]) 1 drop OP DAILY [facility] Non-Formulary Medication (Thyroid,Pork [Ingalls Thyroid]) 150 mg PO ACBREAKFAST [facility] Oxybutynin Chloride (Oxybutynin 5 Mg Tab.Er) 10 mg PO BEDTIME [facility] Pantoprazole Sodium (Pantoprazole 40 Mg Tab.Cr) 40 mg PO ACBREAKFAST [facility] Last Admin: 07/17/21 08:49 Dose: 40 mg Documented by: Prednisone (Prednisone 10 Mg Tab) 10 mg PO QPM [facility] Prednisone (Prednisone 20 Mg Tab) 20 mg PO QAM [facility] Sodium Chloride (Sodium Chloride 0.9% 10 Ml Syringe) 10 ml FLUSH Q8HR PRN PRN Reason: keep vein open Timolol Maleate (Timolol Maleate 0.5% Ophth Soln 5 Ml Bottle) 0 ml EYEBOTH BEDTIME [facility] Tizanidine HCl (Tizanidine 4 Mg Tab) 6 mg PO BEDTIME PRN PRN Reason: Other Vancomycin HCl (Pharmacy To Dose - Vancomycin) 1 dose .XX ASDIRECTED [facility] Discontinued Medications Acetaminophen (Acetaminophen 325 Mg Tab) 650 mg PO Q6H PRN PRN Reason: Pain Dextrose/Water (50% Dextrose In Water 50 Ml Syringe) 50 ml IVPUSH ASDIRECTED PRN PRN Reason: Hypoglycemia - Exam General: Alert, Oriented, Cooperative, No Acute Distress Lungs: Clear to Auscultation, Normal Respiratory Effort Cardiovascular: Regular Rate, Regular Rhythm, No Murmurs Skin: Other (She has a chronic wound on the right medial foot that is draining serosanguinous drainage.) - Patient Data Lab Results Last 24 hrs: Laboratory Results - last 24 hr 07/16/21 07/16/21 07/16/21 Range/Units 22:40 22:40 22:40 WBC 6.02 (5.00-10.00) 10^3/uL RBC 3.93 (3.80-5.50) 10^6/uL Hgb 11.6 L D (12.0-16.0) g/dL Hct 36.2 L (37.0-47.0) % MCV 92.1 H (82.0-92.0) fL MCH 29.5 (27.0-31.0) pg MCHC 32.0 (32.0-36.0) g/dL RDW 15.7 H (11.5-14.5) % Plt Count 329 D (150-400) 10^3/uL MPV 8.8 (7.4-10.4) fL Immature Gran % (Auto) 0.2 (0.0-5.0) % Neut % (Auto) 67.2 (50.0-70.0) % Lymph % (Auto) 21.3 (20.0-40.0) % [place] % (Auto) 10.8 H (2.0-8.0) % Eos % (Auto) 0.3 L (1.0-3.0) % Baso % (Auto) 0.2 (0.0-1.0) % Neut # (Auto) 4.05 (2.50-7.00) 10^3/uL Lymph # (Auto) 1.28 (1.00-4.00) 10^3/uL [place] # (Auto) 0.65 (0.10-0.80) 10^3/uL Eos # (Auto) 0.02 L (0.10-0.30) 10^3/uL Baso # (Auto) 0.01 (0.00-0.10) 10^3/uL Immature Gran # (Auto) 0.01 (0.00-0.50) 10^3/uL Sodium 136 (136-145) mmol/L Potassium 4.7 (3.5-5.1) mmol/L Chloride 101 (98-107) mmol/L Carbon Dioxide 21.4 (21.0-32.0) mmol/L Anion Gap 18.3 H (5-15) mmol/L BUN 28 H (7-18) mg/dL Creatinine 0.68 (0.51-1.17) mg/dL Est Cr Clr Drug Dosing 72.78 mL/min Estimated GFR (MDRD) > 60 mL/min Glucose 138 (70-140) mg/dL POC Glucose (70-140) mg/dL Lactic Acid 0.9 (0.4-2.0) mmol/L Calcium 8.6 L (8.7-10.3) mg/dL Total Bilirubin 0.3 (0.2-1.0) mg/dL AST 25 (15-37) U/L ALT 69 H (14-63) U/L Alkaline Phosphatase 141 H (46-116) U/L Troponin I High Sens 14.200 (0-51.000) pg/mL C-Reactive Protein 0.4 (0.0-0.9) mg/dL Total Protein 5.7 L (6.4-8.2) g/dL Albumin 2.78 L (3.40-5.00) g/dL SARS CoV-2 RNA Rapid ARTI (NEGATIVE) 07/16/21 07/17/21 Range/Units 22:50 08:10 WBC (5.00-10.00) 10^3/uL RBC (3.80-5.50) 10^6/uL Hgb (12.0-16.0) g/dL Hct (37.0-47.0) % MCV (82.0-92.0) fL MCH (27.0-31.0) pg MCHC (32.0-36.0) g/dL RDW (11.5-14.5) % Plt Count (150-400) 10^3/uL MPV (7.4-10.4) fL Immature Gran % (Auto) (0.0-5.0) % Neut % (Auto) (50.0-70.0) % Lymph % (Auto) (20.0-40.0) % [place] % (Auto) (2.0-8.0) % Eos % (Auto) (1.0-3.0) % Baso % (Auto) (0.0-1.0) % Neut # (Auto) (2.50-7.00) 10^3/uL Lymph # (Auto) (1.00-4.00) 10^3/uL [place] # (Auto) (0.10-0.80) 10^3/uL Eos # (Auto) (0.10-0.30) 10^3/uL Baso # (Auto) (0.00-0.10) 10^3/uL Immature Gran # (Auto) (0.00-0.50) 10^3/uL Sodium (136-145) mmol/L Potassium (3.5-5.1) mmol/L Chloride (98-107) mmol/L Carbon Dioxide (21.0-32.0) mmol/L Anion Gap (5-15) mmol/L BUN (7-18) mg/dL Creatinine (0.51-1.17) mg/dL Est Cr Clr Drug Dosing mL/min Estimated GFR (MDRD) mL/min Glucose (70-140) mg/dL POC Glucose 81 (70-140) mg/dL Lactic Acid (0.4-2.0) mmol/L Calcium (8.7-10.3) mg/dL Total Bilirubin (0.2-1.0) mg/dL AST (15-37) U/L ALT (14-63) U/L Alkaline Phosphatase (46-116) U/L Troponin I High Sens (0-51.000) pg/mL C-Reactive Protein (0.0-0.9) mg/dL Total Protein (6.4-8.2) g/dL Albumin (3.40-5.00) g/dL SARS CoV-2 RNA Rapid ARTI Negative (NEGATIVE) Result Diagrams: 07/16/21 22:40 07/16/21 22:40 Sepsis Event Note - Evaluation Sepsis Screening Result: No Definite Risk - Focused Exam Vital Signs: Vital Signs Temp Pulse Resp BP Pulse Ox 07/17/21 07:01 98.4 F 90 16 146/85 H 96 - Problem List Review Problem List Initiated/Reviewed/Updated: Yes - My Orders Last 24 Hours: My Active Orders 07/17/21 11:25 Up With Assistance [RC] ASDIRECTED 07/17/21 11:26 Oxygen Therapy [RC] PRN VTE/DVT Education [RC] PER UNIT ROUTINE Vital Signs [RC] Q4H 07/17/21 11:27 Albuterol [Ventolin HFA] 0 gm INH Q4H PRN Calcium Carbonate [Tums] 1,000 mg PO DAILY PRN Carboxymethylcellulose Sodium [Refresh Tears 0.5%] 0 ml EYEBOTH Q4H PRN Dextrose 50% in Water 50 ml IVPUSH ASDIRECTED PRN Glucagon,Human Recombinant [GlucaGen] 1 mg IM ASDIRECTED PRN diphenhydrAMINE [Benadryl] 25 mg PO Q4H PRN tiZANidine [Zanaflex] 6 mg PO BEDTIME PRN 07/17/21 11:30 Empagliflozin [Jardiance] 10 mg PO DAILY Enoxaparin [Lovenox] 40 mg SUBCUT DAILY Insulin Glargine,Hum.Rec.Anlog [Semglee Pen] 26 unit SUBCUT DAILY Liraglutide [Victoza 2-Javier] 1.8 mg SQ DAILY Losartan [Cozaar] 100 mg PO DAILY amLODIPine [Norvasc] 10 mg PO DAILY 07/17/21 11:31 RT Post Treatment Assessment [RC] Click to Edit RT Pre-Treatment Assessment [RC] Click to Edit 07/17/21 12:00 Insulin Aspart [NovoLOG] 2 - 10 unit SUBCUT WITHMEALSANDBED 07/17/21 18:00 Diclofenac Sodium [Voltaren] 50 mg PO BIDMEALS Hydroxychloroquine [Plaquenil] 200 mg PO BIDMEALS 07/17/21 21:00 Oxybutynin [Oxybutynin ER] 10 mg PO BEDTIME allopurinoL [Zyloprim] 600 mg PO BEDTIME busPIRone [Buspar] 10 mg PO BEDTIME carvediloL [Coreg] 12.5 mg PO QPM predniSONE 10 mg PO QPM timoloL maleate [Timoptic 0.5% Ophth Soln] 0 ml EYEBOTH BEDTIME 07/18/21 05:11 CBC WITH AUTO DIFF [HEME] AM COMPREHENSIVE METABOLIC PN,CMP [CHEM] AM 07/18/21 07:30 Thyroid,Pork [Ingalls Thyroid] 150 mg PO ACBREAKFAST 07/18/21 09:00 Ascorbic Acid [Vitamin C] 1,000 mg PO DAILY Aspirin [Ecotrin] 325 mg PO DAILY Calcium Citrate/Vitamin D3 [Calcium Citrate + D] 2 tab PO DAILY Chondroitin/Glucosamine [Glucosamine-Chondroitin 500-400 Capsule] 1 cap PO DAILY FA/Lycopene/Lut/MV,Ca,Iron,Min [Centrum] 1 tab PO DAILY Fish Oil/[place]-3 Fatty Acids [Fish Oil] 1 gm PO DAILY Lactobacillus Rhamnosus GG [Culturelle] 1 cap PO DAILY Loratadine [Claritin] 10 mg PO DAILY Magnesium Oxide 250 mg PO DAILY Netarsudil Mesylat/Latanoprost [Rocklatan 0.02%-0.005% Eye Drp] 1 drop OP DAILY carvediloL [Coreg] 25 mg PO QAM predniSONE 20 mg PO QAM - Assessment Assessment:: Admission Diagnoses: Infected diabetic foot ulcer with osteomyelitis and possible necrotizing infection - Vancomycin pharm to dose and Zosyn q 8 hours - Dressing to wound - Await culture results - Will likely need MRI of the foot and ankle on 07/22 - After MRI results will consult with podiatry about best course of action Secondary Diagnoses: Gout - Allopurinol 600 mg PO qhs DM - Lantus 26 units subcut daily - SSI per medium dose protocol - Victoza 1.8 mg subcut daily - Jardiance 10 mg PO daily - Accuchecks HTN - Amlodipine 10 mg PO daily - Losartan 100 mg PO daily RA - Plaquenil 200 mg PO BID - Prednisone 30 mg PO daily (she refuses to see rheumatology or try other medications OAB - Oxybutynin 10 mg PO daily Hypothyroidism - Ingalls Thyroid 150 mg PO daily CODE STATUS: DNR/DNI I had a long discuss with Slime that she will not feel better until the source of the infection is removed, i.e. amputation and that we will not be able to fix her problem with antibiotics alone. I counseled her she is not destined for the [facility] simply because she has an amputation but would likely be there for a short time for rehabilitation and learning how to live independently with a new situation. She seemed to be a little more open to considering amputation if that is what podiatry felt would be appropriate.
[2021-07-17] MEDS: Losartan 50 MG Tab PO SCH (12:39)
[2021-07-17] MEDS: Enoxaparin 40 MG/0.4 ML Syringe SUBCUT SCH (12:39)
[2021-07-17] MEDS: amLODIPine 5 MG Tab PO SCH (12:39)
[2021-07-17] MEDS: Ketorolac 30 MG/ML SDV IVPUSH PRN (15:52)
[2021-07-17] MEDS: Hydroxychloroquine 200 MG Tab PO SCH (17:54)
[2021-07-17] MEDS: Diclofenac Sodium 50 MG Tab.EC PO SCH (17:55)
[2021-07-17] MEDS: EMPAGLIFLOZIN 10 MG PO SCH (20:05)
[2021-07-17] MEDS ORDERED: Allopurinol 100 MG Tab PO SCH (21:00)
[2021-07-17] MEDS: Albuterol 8 GM Inhaler INH PRN (21:06)
[2021-07-17] MEDS: Oxybutynin 5 MG Tab.ER PO SCH (21:34)
[2021-07-17] MEDS: busPIRone 10 MG Tab PO SCH (21:34)
[2021-07-17] MEDS: predniSONE 10 MG Tab PO SCH (21:34)
[2021-07-17] MEDS: Carvedilol 12.5 MG Tab PO SCH (21:36)
[2021-07-17] MEDS: Timolol Maleate 0.5% Ophth Soln 5 ML Bottle EYEBOTH SCH (21:36)
[2021-07-18] MEDS: Piperacillin/Tazobactam/Dext 3.375 GM in Premix Bag 1 BAG IV SCH ×5 (05:48→22:44)
[2021-07-18] MEDS: THYROID PORK 120 MG PO SCH (07:15)
[2021-07-18] MEDS: THYROID PORK 30 MG PO SCH (07:15)
[2021-07-18] MEDS: Pantoprazole 40 MG Tab.CR PO SCH (07:15)
[2021-07-18] MEDS: Insulin Aspart 100 Units/ML 3 ML Pen SUBCUT SCH ×4 (07:51→22:29)
[2021-07-18 07:55] LABS: ANION GAP 17.8 mmol/L (5-15); CHLORIDE,CL 107 mmol/L (98-107); SODIUM,NA 141 mmol/L (136-145)
[2021-07-18] MEDS: Fish Oil/Omega-3 Fatty Acids 1 Gm Cap PO SCH (08:06)
[2021-07-18] MEDS: Calcium Citrate/Vitamin D3 315 MG-250 Unit Tab PO SCH (08:06)
[2021-07-18] MEDS: Loratadine 10 MG Tab PO SCH (08:07)
[2021-07-18] MEDS: Carvedilol 12.5 MG Tab PO SCH ×2 (08:07→20:28)
[2021-07-18] MEDS: Ascorbic Acid 500 MG Tab PO SCH (08:07)
[2021-07-18] MEDS: Magnesium Oxide 500 MG Tab PO SCH (08:07)
[2021-07-18] MEDS: Diclofenac Sodium 50 MG Tab.EC PO SCH ×2 (08:07→17:35)
[2021-07-18] MEDS: Losartan 50 MG Tab PO SCH (08:07)
[2021-07-18] MEDS: Multivitamins with Minerals/Iron/Folic Acid/Lycopene Tab PO SCH (08:08)
[2021-07-18] MEDS: Lactobacillus Rhamnosus GG (Probiotic) Cap PO SCH (08:08)
[2021-07-18] MEDS: Chondroitin/Glucosamine Cap PO SCH (08:08)
[2021-07-18] MEDS: Aspirin 325 MG Tab.EC PO SCH (08:08)
[2021-07-18] MEDS: predniSONE 20 MG Tab PO SCH (08:08)
[2021-07-18] MEDS: Hydroxychloroquine 200 MG Tab PO SCH ×2 (08:08→17:35)
[2021-07-18] MEDS: amLODIPine 5 MG Tab PO SCH (08:08)
[2021-07-18] MEDS: NETARSUDIL MESYLAT EYEBOTH SCH (08:11)
[2021-07-18] MEDS: Enoxaparin 40 MG/0.4 ML Syringe SUBCUT SCH (08:11)
[2021-07-18] MEDS: LATANOPROST EYEBOTH SCH (08:11)
[2021-07-18] MEDS: LIRAGLUTIDE 18 MG/3 ML SQ SCH (08:12)
[2021-07-18] MEDS: Ketorolac 30 MG/ML SDV IVPUSH PRN (10:22)
[2021-07-18] MEDS: Sodium Chloride 0.9% 10 ML Syringe FLUSH PRN ×2 (10:23→23:30)
[2021-07-18] MEDS: Albuterol 8 GM Inhaler INH PRN (11:01)
[2021-07-18] MEDS: Sodium Chloride 0.9% 100 ML IV SCH ×2 (11:49→23:25)
--- NOTE | 2021-07-18 14:13 | PCM.PN ---
- General Info Date of Service: 07/18/21 Admission Dx/Problem (Free Text): Chronic foot infection with osteomyelitis. - Review of Systems Systems Review Comment:: 07/17/2021: Slime was admitted through the ER on 07/16 after having a telehealth visit with me earlier that day encouraged her to see ER evaluation and treatment. She was generally feeling unwell. She has a hx of a diabetic foot ulcer on the right that she has had debridement on in the past as well as many weeks of antibiotics. She has been septic from this in the past. She has not been seen in person since December of 2020 having done several telehealth visits for diabetes, HTN but not really about her foot. She is on chronic Keflex 250 mg PO daily for prophylaxis. She recently finished a 14 day course of Bactrim, Keflex and ciprofloxacin based on previous sensitivity results but nothing current. She stated that maybe she just needed to be on the antibiotics longer. In the ER she was noted to have a 2.5 x 3 cm ulcer to her medial foot just inferior to her great toe. She does have Charcot foot as well and is not very mobile. X- ray was done an reported ankle/hind foot septic arthritis/osteomyelitis with gas in the distal leg and hind foot suggestive of a necrotizing infection. Slime was counseled that due to the chronic nature of this we can admit her for antibiotics but she will likely benefit from an amputation to which she states "then I'll just end up in the custodial and what life is that, I may as well blow my brains out." Then she asks me to give her morphine as an overdose "so I can just go to sleep". She then states "I would never do that but it just feels hopeless." She states her mother ended up have several amputations over times and had no quality of life and she does not want that. Wound and blood cultures were obtained and she was started on Vancomycin and Zosyn for broad coverage. She has no questions today. 07/18: No calls overnight. Slime is struggling with what will be the best option for her and would like to avoid amputation. She states she is requiring help with all cares and would not be able to be on her own at this time. She has a walking boot at home she uses for stability but has not been using that due to her ulcer on the right foot. She is questioning if she could do antibiotics at home but has no one to help her. Appetite is good. Labs OK, blood cultures negative to date. Has been running intermittently hypertensive. - Patient Data Vitals - Most Recent: Last Vital Signs Temp 96.7 F L 07/18/21 11:00 Pulse 71 07/18/21 11:00 Resp 20 07/18/21 11:00 BP 163/78 H 07/18/21 11:00 Pulse Ox 97 07/18/21 11:03 Weight - Most Recent: 199 lb 7 oz I&O - Last 24 Hours: Intake & Output 07/17/21 07/18/21 07/18/21 22:59 06:59 14:59 Intake Total 430 650 Balance 430 650 Lab Results Last 24 Hours: Laboratory Results - last 24 hr 07/17/21 07/18/21 07/18/21 Range/Units 21:38 07:15 07:15 WBC 3.97 L (5.00-10.00) 10^3/uL RBC 3.62 L (3.80-5.50) 10^6/uL Hgb 10.3 L (12.0-16.0) g/dL Hct 33.7 L (37.0-47.0) % MCV 93.1 H (82.0-92.0) fL MCH 28.5 (27.0-31.0) pg MCHC 30.6 L (32.0-36.0) g/dL RDW 16.1 H (11.5-14.5) % Plt Count 259 (150-400) 10^3/uL MPV 8.3 (7.4-10.4) fL Immature Gran % (Auto) 0.0 (0.0-5.0) % Neut % (Auto) 68.2 (50.0-70.0) % Lymph % (Auto) 23.4 (20.0-40.0) % [place] % (Auto) 7.8 (2.0-8.0) % Eos % (Auto) 0.3 L (1.0-3.0) % Baso % (Auto) 0.3 (0.0-1.0) % Neut # (Auto) 2.71 (2.50-7.00) 10^3/uL Lymph # (Auto) 0.93 L (1.00-4.00) 10^3/uL [place] # (Auto) 0.31 (0.10-0.80) 10^3/uL Eos # (Auto) 0.01 L (0.10-0.30) 10^3/uL Baso # (Auto) 0.01 (0.00-0.10) 10^3/uL Immature Gran # (Auto) 0.00 (0.00-0.50) 10^3/uL Sodium 141 (136-145) mmol/L Potassium 4.7 (3.5-5.1) mmol/L Chloride 107 (98-107) mmol/L Carbon Dioxide 20.9 L (21.0-32.0) mmol/L Anion Gap 17.8 H (5-15) mmol/L BUN 29 H (7-18) mg/dL Creatinine 0.64 (0.51-1.17) mg/dL Est Cr Clr Drug Dosing 76.36 mL/min Estimated GFR (MDRD) > 60 mL/min Glucose 113 (70-140) mg/dL POC Glucose 113 (70-140) mg/dL Calcium 8.3 L (8.7-10.3) mg/dL Total Bilirubin 0.3 (0.2-1.0) mg/dL AST 31 (15-37) U/L ALT 78 H (14-63) U/L Alkaline Phosphatase 117 H (46-116) U/L Total Protein 4.9 L (6.4-8.2) g/dL Albumin 2.34 L (3.40-5.00) g/dL 07/18/21 07/18/21 Range/Units 07:50 11:48 WBC (5.00-10.00) 10^3/uL RBC (3.80-5.50) 10^6/uL Hgb (12.0-16.0) g/dL Hct (37.0-47.0) % MCV (82.0-92.0) fL MCH (27.0-31.0) pg MCHC (32.0-36.0) g/dL RDW (11.5-14.5) % Plt Count (150-400) 10^3/uL MPV (7.4-10.4) fL Immature Gran % (Auto) (0.0-5.0) % Neut % (Auto) (50.0-70.0) % Lymph % (Auto) (20.0-40.0) % [place] % (Auto) (2.0-8.0) % Eos % (Auto) (1.0-3.0) % Baso % (Auto) (0.0-1.0) % Neut # (Auto) (2.50-7.00) 10^3/uL Lymph # (Auto) (1.00-4.00) 10^3/uL [place] # (Auto) (0.10-0.80) 10^3/uL Eos # (Auto) (0.10-0.30) 10^3/uL Baso # (Auto) (0.00-0.10) 10^3/uL Immature Gran # (Auto) (0.00-0.50) 10^3/uL Sodium (136-145) mmol/L Potassium (3.5-5.1) mmol/L Chloride (98-107) mmol/L Carbon Dioxide (21.0-32.0) mmol/L Anion Gap (5-15) mmol/L BUN (7-18) mg/dL Creatinine (0.51-1.17) mg/dL Est Cr Clr Drug Dosing mL/min Estimated GFR (MDRD) mL/min Glucose (70-140) mg/dL POC Glucose 99 149 H (70-140) mg/dL Calcium (8.7-10.3) mg/dL Total Bilirubin (0.2-1.0) mg/dL AST (15-37) U/L ALT (14-63) U/L Alkaline Phosphatase (46-116) U/L Total Protein (6.4-8.2) g/dL Albumin (3.40-5.00) g/dL Patricio Results Last 24 Hours: Microbiology 07/16/21 22:50 Aerobic Blood Culture - Preliminary Blood - Venous NO GROWTH AFTER 1 DAY Anaerobic Blood Culture - Preliminary NO GROWTH AFTER 1 DAY 07/16/21 22:50 Aerobic Blood Culture - Preliminary Blood - Venous - Lab Draw NO GROWTH AFTER 1 DAY Anaerobic Blood Culture - Preliminary NO GROWTH AFTER 1 DAY Med Orders - Current: Current Medications Acetaminophen (Acetaminophen 325 Mg Tab) 650 mg PO Q6H PRN PRN Reason: Pain Last Admin: 07/17/21 22:49 Dose: 650 mg Documented by: Albuterol (Albuterol 8 Gm Inhaler) 0 gm INH Q4H PRN PRN Reason: Shortness of Breath Last Admin: 07/18/21 11:01 Dose: 2 puff Documented by: Allopurinol (Allopurinol 100 Mg Tab) 600 mg PO BEDTIME [facility] Last Admin: 07/17/21 21:33 Dose: 400 mg Documented by: Amlodipine Besylate (Amlodipine 5 Mg Tab) 10 mg PO DAILY [facility] Last Admin: 07/18/21 08:08 Dose: 10 mg Documented by: Artificial Tears (Carboxymethylcellulose Sodium 0.5% Ophth Soln 15 Ml Bottle) 0 ml EYEBOTH Q4H PRN PRN Reason: Dry Eyes Ascorbic Acid (Ascorbic Acid 500 Mg Tab) 1,000 mg PO DAILY [facility] Last Admin: 07/18/21 08:07 Dose: 1,000 mg Documented by: Aspirin (Aspirin 325 Mg Tab.Ec) 325 mg PO DAILY [facility] Last Admin: 07/18/21 08:08 Dose: 325 mg Documented by: Buspirone HCl (Buspirone 10 Mg Tab) 10 mg PO BEDTIME [facility] Last Admin: 07/17/21 21:34 Dose: 10 mg Documented by: Calcium Carbonate/Glycine (Calcium Carbonate 500 Mg Tab.Chew) 1,000 mg PO DAILY PRN PRN Reason: Heartburn Calcium Citrate (Calcium Citrate/Vitamin D3 315 Mg-250 Unit Tab) 2 tab PO DAILY [facility] Last Admin: 07/18/21 08:06 Dose: 2 tab Documented by: Carvedilol (Carvedilol 12.5 Mg Tab) 12.5 mg PO QPM [facility] Last Admin: 07/17/21 21:36 Dose: 12.5 mg Documented by: Carvedilol (Carvedilol 12.5 Mg Tab) 25 mg PO QAM [facility] Last Admin: 07/18/21 08:07 Dose: 25 mg Documented by: Dextrose/Water (50% Dextrose In Water 50 Ml Syringe) 50 ml IVPUSH ASDIRECTED PRN PRN Reason: Hypoglycemia Diclofenac Sodium (Diclofenac Sodium 50 Mg Tab.Ec) 50 mg PO BIDMEALS [facility] Last Admin: 07/18/21 08:07 Dose: 50 mg Documented by: Diphenhydramine HCl (Diphenhydramine 25 Mg Cap) 25 mg PO Q4H PRN PRN Reason: Other Enoxaparin Sodium (Enoxaparin 40 Mg/0.4 Ml Syringe) 40 mg SUBCUT DAILY [facility] Last Admin: 07/18/21 08:11 Dose: 40 mg Documented by: Fish Oil (Fish Oil/[place]-3 Fatty Acids 1 Gm Cap) 1 gm PO DAILY [facility] Last Admin: 07/18/21 08:06 Dose: 1 gm Documented by: Glucagon (Glucagon,Human Recombinant 1 Mg Vial) 1 mg IM ASDIRECTED PRN PRN Reason: Hypoglycemia Glucosamine/Chondroitin (Chondroitin/Glucosamine Cap) 1 cap PO DAILY [facility] Last Admin: 07/18/21 08:08 Dose: 1 cap Documented by: Hydroxychloroquine Sulfate (Hydroxychloroquine 200 Mg Tab) 200 mg PO BIDMEALS [facility] Last Admin: 07/18/21 08:08 Dose: 200 mg Documented by: Piperacillin/Tazobactam/ (Dextrose 3.375 gm/ Premix) 50 mls @ 100 mls/hr IV Q6H [facility] Last Admin: 07/18/21 11:00 Dose: 100 mls/hr Documented by: Vancomycin HCl 1 gm/ Sodium (Chloride) 250 mls @ 166.667 mls/hr IV Q12H [facility] Last Admin: 07/18/21 11:49 Dose: 166.667 mls/hr Documented by: Sodium Chloride (Normal Saline) 100 mls @ 125 mls/hr IV ASDIRECTED [facility] Last Admin: 07/18/21 11:49 Dose: 125 mls/hr Documented by: Ibuprofen (Ibuprofen 400 Mg Tab) 400 mg PO Q4H PRN PRN Reason: Pain Last Admin: 07/17/21 09:54 Dose: 400 mg Documented by: Insulin Aspart (Insulin Aspart 100 Units/Ml 3 Ml Pen) 2 - 10 unit SUBCUT WITHMEALSANDBED [facility]; Protocol Last Admin: 07/18/21 11:48 Dose: Not Given Documented by: Insulin Glargine (Insulin Glargine,Hum.Rec.Anlog 100 Unit/Ml 3 Ml Pen) 26 unit SUBCUT BEDTIME [facility] Last Admin: 07/17/21 21:42 Dose: 26 unit Documented by: Ketorolac Tromethamine (Ketorolac 30 Mg/Ml Sdv) 30 mg IVPUSH Q12H PRN PRN Reason: Pain Stop: 07/22/21 15:09 Last Admin: 07/18/21 10:22 Dose: 30 mg Documented by: Lactobacillus Rhamnosus (Lactobacillus Rhamnosus Gg (Probiotic) Cap) 1 cap PO DAILY [facility] Last Admin: 07/18/21 08:08 Dose: 1 cap Documented by: Loratadine (Loratadine 10 Mg Tab) 10 mg PO DAILY [facility] Last Admin: 07/18/21 08:07 Dose: 10 mg Documented by: Losartan Potassium (Losartan 50 Mg Tab) 100 mg PO DAILY [facility] Last Admin: 07/18/21 08:07 Dose: 100 mg Documented by: Magnesium Oxide (Magnesium Oxide 500 Mg Tab) 250 mg PO DAILY [facility] Last Admin: 07/18/21 08:07 Dose: 250 mg Documented by: Multivitamins/Minerals (Multivitamins With Minerals/Iron/Folic Acid/Lycopene Tab) 1 tab PO DAILY [facility] Last Admin: 07/18/21 08:08 Dose: 1 tab Documented by: Liraglutide [Victoza 2-Javier] 18 Mg/3 Ml PenOwn Med 1.8 mg SQ DAILY [facility] Last Admin: 07/18/21 08:12 Dose: 1.8 mg Documented by: Netarsudil Mesylat/Latanoprost [ Rocklatan 0.02%-0. 005% EyeOwn Med 1 drop EYEBOTH DAILY [facility] Last Admin: 07/18/21 08:11 Dose: 1 drop Documented by: Thyroid,Pork [[place] Thyroid] 120 Mg TabletOwn Med 120 mg PO ACBREAKFAST [facility] Last Admin: 07/18/21 07:15 Dose: 120 mg Documented by: Thyroid,Pork [[place] Thyroid] 30 Mg TabletOwn Med 30 mg PO ACBREAKFAST [facility] Last Admin: 07/18/21 07:15 Dose: 30 mg Documented by: Empagliflozin [ Jardiance] 10 Mg TabletOwn Med 10 mg PO DAILY@1800 [facility] Last Admin: 07/17/21 20:05 Dose: Not Given Documented by: Oxybutynin Chloride (Oxybutynin 5 Mg Tab.Er) 10 mg PO BEDTIME [facility] Last Admin: 07/17/21 21:34 Dose: 10 mg Documented by: Pantoprazole Sodium (Pantoprazole 40 Mg Tab.Cr) 40 mg PO ACBREAKFAST [facility] Last Admin: 07/18/21 07:15 Dose: 40 mg Documented by: Prednisone (Prednisone 10 Mg Tab) 10 mg PO QPM [facility] Last Admin: 07/17/21 21:34 Dose: 10 mg Documented by: Prednisone (Prednisone 20 Mg Tab) 20 mg PO QAM [facility] Last Admin: 07/18/21 08:08 Dose: 20 mg Documented by: Sodium Chloride (Sodium Chloride 0.9% 10 Ml Syringe) 10 ml FLUSH Q8HR PRN PRN Reason: keep vein open Last Admin: 07/18/21 10:23 Dose: 10 ml Documented by: Timolol Maleate (Timolol Maleate 0.5% Ophth Soln 5 Ml Bottle) 0 ml EYEBOTH BEDTIME [facility] Last Admin: 07/17/21 21:36 Dose: 1 drop Documented by: Tizanidine HCl (Tizanidine 4 Mg Tab) 6 mg PO BEDTIME PRN PRN Reason: Other Vancomycin HCl (Pharmacy To Dose - Vancomycin) 1 dose .XX ASDIRECTED [facility] Discontinued Medications Acetaminophen (Acetaminophen 325 Mg Tab) 650 mg PO Q6H PRN PRN Reason: Pain Dextrose/Water (50% Dextrose In Water 50 Ml Syringe) 50 ml IVPUSH ASDIRECTED PRN PRN Reason: Hypoglycemia Glucagon (Glucagon,Human Recombinant 1 Mg Vial) 1 mg IM ASDIRECTED PRN PRN Reason: Hypoglycemia Insulin Aspart (Insulin Aspart 100 Units/Ml 3 Ml Pen) 0 unit SUBCUT WITHMEALSANDBED [facility]; Protocol Last Admin: 07/17/21 13:11 Dose: Not Given Documented by: Insulin Glargine (Insulin Glargine,Hum.Rec.Anlog 100 Unit/Ml 3 Ml Pen) 26 unit SUBCUT DAILY [facility] Last Admin: 07/17/21 13:11 Dose: Not Given Documented by: Insulin Glargine (Insulin Glargine,Hum.Rec.Anlog 100 Unit/Ml 3 Ml Pen) 26 unit SUBCUT DAILY [facility] Last Admin: 07/17/21 13:11 Dose: Not Given Documented by: Empagliflozin [ Jardiance] 10 Mg TabletOwn Med 10 mg PO DAILY [facility] Last Admin: 07/17/21 16:05 Dose: 10 mg Documented by: - Exam General: Alert, Oriented, Cooperative, No Acute Distress Lungs: Clear to Auscultation, Normal Respiratory Effort Cardiovascular: Regular Rate, Regular Rhythm, No Murmurs GI/Abdominal Exam: Normal Bowel Sounds Extremities: Other (Wound as previously described continues with serosanguinous drainage. ) - Patient Data Lab Results Last 24 hrs: Laboratory Results - last 24 hr 07/17/21 07/18/21 07/18/21 Range/Units 21:38 07:15 07:15 WBC 3.97 L (5.00-10.00) 10^3/uL RBC 3.62 L (3.80-5.50) 10^6/uL Hgb 10.3 L (12.0-16.0) g/dL Hct 33.7 L (37.0-47.0) % MCV 93.1 H (82.0-92.0) fL MCH 28.5 (27.0-31.0) pg MCHC 30.6 L (32.0-36.0) g/dL RDW 16.1 H (11.5-14.5) % Plt Count 259 (150-400) 10^3/uL MPV 8.3 (7.4-10.4) fL Immature Gran % (Auto) 0.0 (0.0-5.0) % Neut % (Auto) 68.2 (50.0-70.0) % Lymph % (Auto) 23.4 (20.0-40.0) % [place] % (Auto) 7.8 (2.0-8.0) % Eos % (Auto) 0.3 L (1.0-3.0) % Baso % (Auto) 0.3 (0.0-1.0) % Neut # (Auto) 2.71 (2.50-7.00) 10^3/uL Lymph # (Auto) 0.93 L (1.00-4.00) 10^3/uL [place] # (Auto) 0.31 (0.10-0.80) 10^3/uL Eos # (Auto) 0.01 L (0.10-0.30) 10^3/uL Baso # (Auto) 0.01 (0.00-0.10) 10^3/uL Immature Gran # (Auto) 0.00 (0.00-0.50) 10^3/uL Sodium 141 (136-145) mmol/L Potassium 4.7 (3.5-5.1) mmol/L Chloride 107 (98-107) mmol/L Carbon Dioxide 20.9 L (21.0-32.0) mmol/L Anion Gap 17.8 H (5-15) mmol/L BUN 29 H (7-18) mg/dL Creatinine 0.64 (0.51-1.17) mg/dL Est Cr Clr Drug Dosing 76.36 mL/min Estimated GFR (MDRD) > 60 mL/min Glucose 113 (70-140) mg/dL POC Glucose 113 (70-140) mg/dL Calcium 8.3 L (8.7-10.3) mg/dL Total Bilirubin 0.3 (0.2-1.0) mg/dL AST 31 (15-37) U/L ALT 78 H (14-63) U/L Alkaline Phosphatase 117 H (46-116) U/L Total Protein 4.9 L (6.4-8.2) g/dL Albumin 2.34 L (3.40-5.00) g/dL 07/18/21 07/18/21 Range/Units 07:50 11:48 WBC (5.00-10.00) 10^3/uL RBC (3.80-5.50) 10^6/uL Hgb (12.0-16.0) g/dL Hct (37.0-47.0) % MCV (82.0-92.0) fL MCH (27.0-31.0) pg MCHC (32.0-36.0) g/dL RDW (11.5-14.5) % Plt Count (150-400) 10^3/uL MPV (7.4-10.4) fL Immature Gran % (Auto) (0.0-5.0) % Neut % (Auto) (50.0-70.0) % Lymph % (Auto) (20.0-40.0) % [place] % (Auto) (2.0-8.0) % Eos % (Auto) (1.0-3.0) % Baso % (Auto) (0.0-1.0) % Neut # (Auto) (2.50-7.00) 10^3/uL Lymph # (Auto) (1.00-4.00) 10^3/uL [place] # (Auto) (0.10-0.80) 10^3/uL Eos # (Auto) (0.10-0.30) 10^3/uL Baso # (Auto) (0.00-0.10) 10^3/uL Immature Gran # (Auto) (0.00-0.50) 10^3/uL Sodium (136-145) mmol/L Potassium (3.5-5.1) mmol/L Chloride (98-107) mmol/L Carbon Dioxide (21.0-32.0) mmol/L Anion Gap (5-15) mmol/L BUN (7-18) mg/dL Creatinine (0.51-1.17) mg/dL Est Cr Clr Drug Dosing mL/min Estimated GFR (MDRD) mL/min Glucose (70-140) mg/dL POC Glucose 99 149 H (70-140) mg/dL Calcium (8.7-10.3) mg/dL Total Bilirubin (0.2-1.0) mg/dL AST (15-37) U/L ALT (14-63) U/L Alkaline Phosphatase (46-116) U/L Total Protein (6.4-8.2) g/dL Albumin (3.40-5.00) g/dL Result Diagrams: 07/18/21 07:15 07/18/21 07:15 Patricio Results Last 24 hrs: Microbiology 07/16/21 22:50 Aerobic Blood Culture - Preliminary Blood - Venous NO GROWTH AFTER 1 DAY Anaerobic Blood Culture - Preliminary NO GROWTH AFTER 1 DAY 07/16/21 22:50 Aerobic Blood Culture - Preliminary Blood - Venous - Lab Draw NO GROWTH AFTER 1 DAY Anaerobic Blood Culture - Preliminary NO GROWTH AFTER 1 DAY Sepsis Event Note - Evaluation Sepsis Screening Result: No Definite Risk - Focused Exam Vital Signs: Vital Signs Temp Pulse Pulse Resp BP BP Pulse Ox 07/18/21 11:03 07/18/21 11:00 96.7 F L 71 20 163/78 H 97 07/18/21 08:08 170/89 H 07/18/21 08:07 81 170/89 H 07/18/21 06:58 98.2 F 74 16 150/71 H 95 07/18/21 03:00 98.7 F 67 18 151/73 H 95 Pulse Ox 07/18/21 11:03 97 07/18/21 11:00 07/18/21 08:08 07/18/21 08:07 07/18/21 06:58 07/18/21 03:00 - Problem List Review Problem List Initiated/Reviewed/Updated: Yes - My Orders Last 24 Hours: My Active Orders 07/17/21 15:08 Ketorolac [Toradol] 30 mg IVPUSH Q12H PRN 07/17/21 18:00 Diclofenac Sodium [Voltaren] 50 mg PO BIDMEALS Hydroxychloroquine [Plaquenil] 200 mg PO BIDMEALS 07/17/21 20:00 Empagliflozin [Jardiance] 10 mg PO DAILY@1800 07/17/21 21:00 Insulin Glargine,Hum.Rec.Anlog [Semglee Pen] 26 unit SUBCUT BEDTIME Oxybutynin [Oxybutynin ER] 10 mg PO BEDTIME allopurinoL [Zyloprim] 600 mg PO BEDTIME busPIRone [Buspar] 10 mg PO BEDTIME carvediloL [Coreg] 12.5 mg PO QPM predniSONE 10 mg PO QPM timoloL maleate [Timoptic 0.5% Ophth Soln] 0 ml EYEBOTH BEDTIME 07/18/21 07:30 Thyroid,Pork [[place] Thyroid] 120 mg PO ACBREAKFAST Thyroid,Pork [[place] Thyroid] 30 mg PO ACBREAKFAST 07/18/21 09:00 Ascorbic Acid [Vitamin C] 1,000 mg PO DAILY Aspirin [Ecotrin] 325 mg PO DAILY Calcium Citrate/Vitamin D3 [Calcium Citrate + D] 2 tab PO DAILY Chondroitin/Glucosamine [Glucosamine-Chondroitin 500-400 Capsule] 1 cap PO DAILY FA/Lycopene/Lut/MV,Ca,Iron,Min [Centrum] 1 tab PO DAILY Fish Oil/[place]-3 Fatty Acids [Fish Oil] 1 gm PO DAILY Lactobacillus Rhamnosus GG [Culturelle] 1 cap PO DAILY Liraglutide [Victoza 2-Javier] 1.8 mg SQ DAILY Loratadine [Claritin] 10 mg PO DAILY Magnesium Oxide 250 mg PO DAILY Netarsudil Mesylat/Latanoprost [Rocklatan 0.02%-0.005% Eye Drp] 1 drop EYEBOTH DAILY carvediloL [Coreg] 25 mg PO QAM predniSONE 20 mg PO QAM - Assessment Assessment:: Admission Diagnoses: Infected diabetic foot ulcer with osteomyelitis and possible necrotizing infection - Vancomycin pharm to dose and Zosyn q 8 hours - Dressing to wound - Await culture results - Will likely need MRI of the foot and ankle on 07/22 - Will attempt to consult with podiatry on 07/19 about options Debility secondary to above - PT consultation - Discussed that without help in the home is it highly unlikely she could go home with home infusions Secondary Diagnoses: Gout - Allopurinol 600 mg PO qhs DM - Lantus 26 units subcut daily - SSI per medium dose protocol - Victoza 1.8 mg subcut daily (on hold due to not on formulary) - Jardiance 10 mg PO daily - Accuchecks HTN - Amlodipine 10 mg PO daily - Losartan 100 mg PO daily RA - Plaquenil 200 mg PO BID - Prednisone 30 mg PO daily (she refuses to see rheumatology or try other medications) OAB - Oxybutynin 10 mg PO daily Hypothyroidism - [place] Thyroid 150 mg PO daily CODE STATUS: DNR/DNI 07/17: I had a long discuss with Slime that she will not feel better until the source of the infection is removed, i.e. amputation and that we will not be able to fix her problem with antibiotics alone. I counseled her she is not destined for the [facility] simply because she has an amputation but would likely be there for a short time for rehabilitation and learning how to live independently with a new situation. She seemed to be a little more open to considering amputation if that is what podiatry felt would be appropriate.
[2021-07-18] MEDS: Acetaminophen 325 MG Tab PO PRN (14:24)
[2021-07-18] MEDS: EMPAGLIFLOZIN 10 MG PO SCH (17:36)
[2021-07-18] MEDS: predniSONE 10 MG Tab PO SCH (20:28)
[2021-07-18] MEDS: Oxybutynin 5 MG Tab.ER PO SCH (20:28)
[2021-07-18] MEDS: busPIRone 10 MG Tab PO SCH (20:28)
[2021-07-18] MEDS: Allopurinol 100 MG Tab PO SCH (20:28)
[2021-07-18] MEDS: Insulin Glargine,Hum.Rec.Anlog 100 UNIT/ML 3 ML Pen SUBCUT SCH (20:31)
[2021-07-18] MEDS: Timolol Maleate 0.5% Ophth Soln 5 ML Bottle EYEBOTH SCH (20:31)
[2021-07-19] MEDS: Sodium Chloride 0.9% 10 ML Syringe FLUSH PRN ×2 (02:30→05:40)
[2021-07-19] MEDS: Piperacillin/Tazobactam/Dext 3.375 GM in Premix Bag 1 BAG IV SCH ×3 (05:41→17:30)
[2021-07-19] MEDS: Pantoprazole 40 MG Tab.CR PO SCH (06:37)
[2021-07-19] MEDS: THYROID PORK 120 MG PO SCH (06:37)
[2021-07-19] MEDS: THYROID PORK 30 MG PO SCH (06:38)
[2021-07-19 08:11] LABS: ANION GAP 17.5 mmol/L (5-15); CHLORIDE,CL 108 mmol/L (98-107); SODIUM,NA 145 mmol/L (136-145)
[2021-07-19] MEDS: Insulin Aspart 100 Units/ML 3 ML Pen SUBCUT SCH ×4 (09:10→22:41)
[2021-07-19] MEDS: LIRAGLUTIDE 18 MG/3 ML SQ SCH (09:13)
[2021-07-19] MEDS: Albuterol 8 GM Inhaler INH PRN ×2 (09:16→21:34)
[2021-07-19] MEDS: Enoxaparin 40 MG/0.4 ML Syringe SUBCUT SCH (09:26)
[2021-07-19] MEDS: Acetaminophen 325 MG Tab PO PRN ×2 (09:28→21:00)
[2021-07-19] MEDS: Magnesium Oxide 500 MG Tab PO SCH (09:28)
[2021-07-19] MEDS: Lactobacillus Rhamnosus GG (Probiotic) Cap PO SCH (09:29)
[2021-07-19] MEDS: Multivitamins with Minerals/Iron/Folic Acid/Lycopene Tab PO SCH (09:29)
[2021-07-19] MEDS: Diclofenac Sodium 50 MG Tab.EC PO SCH ×2 (09:29→17:30)
[2021-07-19] MEDS: Ascorbic Acid 500 MG Tab PO SCH (09:29)
[2021-07-19] MEDS: Chondroitin/Glucosamine Cap PO SCH (09:29)
[2021-07-19] MEDS: predniSONE 20 MG Tab PO SCH (09:29)
[2021-07-19] MEDS: Fish Oil/Omega-3 Fatty Acids 1 Gm Cap PO SCH (09:29)
[2021-07-19] MEDS: Calcium Citrate/Vitamin D3 315 MG-250 Unit Tab PO SCH (09:29)
[2021-07-19] MEDS: Aspirin 325 MG Tab.EC PO SCH (09:29)
[2021-07-19] MEDS: Loratadine 10 MG Tab PO SCH (09:30)
[2021-07-19] MEDS: Hydroxychloroquine 200 MG Tab PO SCH ×2 (09:30→17:30)
[2021-07-19] MEDS: Losartan 50 MG Tab PO SCH (09:30)
[2021-07-19] MEDS: amLODIPine 5 MG Tab PO SCH (09:34)
[2021-07-19] MEDS: LATANOPROST EYEBOTH SCH (09:35)
[2021-07-19] MEDS: NETARSUDIL MESYLAT EYEBOTH SCH (09:35)
[2021-07-19] MEDS: Carvedilol 12.5 MG Tab PO SCH ×2 (09:35→20:53)
--- NOTE | 2021-07-19 10:33 | PCM.PN ---
- General Info Date of Service: 07/19/21 Admission Dx/Problem (Free Text): Chronic foot infection with osteomyelitis. - Review of Systems Systems Review Comment:: 07/17/2021: Slime was admitted through the ER on 07/16 after having a telehealth visit with me earlier that day encouraged her to see ER evaluation and treatment. She was generally feeling unwell. She has a hx of a diabetic foot ulcer on the right that she has had debridement on in the past as well as many weeks of antibiotics. She has been septic from this in the past. She has not been seen in person since December of 2020 having done several telehealth visits for diabetes, HTN but not really about her foot. She is on chronic Keflex 250 mg PO daily for prophylaxis. She recently finished a 14 day course of Bactrim, Keflex and ciprofloxacin based on previous sensitivity results but nothing current. She stated that maybe she just needed to be on the antibiotics longer. In the ER she was noted to have a 2.5 x 3 cm ulcer to her medial foot just inferior to her great toe. She does have Charcot foot as well and is not very mobile. X- ray was done an reported ankle/hind foot septic arthritis/osteomyelitis with gas in the distal leg and hind foot suggestive of a necrotizing infection. Slime was counseled that due to the chronic nature of this we can admit her for antibiotics but she will likely benefit from an amputation to which she states "then I'll just end up in the senior living and what life is that, I may as well blow my brains out." Then she asks me to give her morphine as an overdose "so I can just go to sleep". She then states "I would never do that but it just feels hopeless." She states her mother ended up have several amputations over times and had no quality of life and she does not want that. Wound and blood cultures were obtained and she was started on Vancomycin and Zosyn for broad coverage. She has no questions today. 07/18: No calls overnight. Slime is struggling with what will be the best option for her and would like to avoid amputation. She states she is requiring help with all cares and would not be able to be on her own at this time. She has a walking boot at home she uses for stability but has not been using that due to her ulcer on the right foot. She is questioning if she could do antibiotics at home but has no one to help her. Appetite is good. Labs OK, blood cultures negative to date. Has been running intermittently hypertensive. 07/19: No calls overnight. Slime is reporting diarrhea from the antibiotics and is requesting Imodium. She also states she has a nail fungus of her left thumb and puts on a generic "antifungal cream" to the nail and is wondering if she could get this. - Patient Data Vitals - Most Recent: Last Vital Signs Temp 96.1 F L 07/19/21 06:31 Pulse 74 07/19/21 09:35 Resp 18 07/19/21 06:31 BP 182/85 H 07/19/21 09:35 Pulse Ox 94 L 07/19/21 06:31 Weight - Most Recent: 199 lb 7 oz I&O - Last 24 Hours: Intake & Output 07/18/21 07/19/21 07/19/21 22:59 06:59 14:59 Intake Total 665 565 Balance 665 565 Lab Results Last 24 Hours: Laboratory Results - last 24 hr 07/18/21 07/18/21 07/18/21 Range/Units 11:48 17:34 20:26 WBC (5.00-10.00) 10^3/uL RBC (3.80-5.50) 10^6/uL Hgb (12.0-16.0) g/dL Hct (37.0-47.0) % MCV (82.0-92.0) fL MCH (27.0-31.0) pg MCHC (32.0-36.0) g/dL RDW (11.5-14.5) % Plt Count (150-400) 10^3/uL MPV (7.4-10.4) fL Immature Gran % (Auto) (0.0-5.0) % Neut % (Auto) (50.0-70.0) % Lymph % (Auto) (20.0-40.0) % Knott % (Auto) (2.0-8.0) % Eos % (Auto) (1.0-3.0) % Baso % (Auto) (0.0-1.0) % Neut # (Auto) (2.50-7.00) 10^3/uL Lymph # (Auto) (1.00-4.00) 10^3/uL Knott # (Auto) (0.10-0.80) 10^3/uL Eos # (Auto) (0.10-0.30) 10^3/uL Baso # (Auto) (0.00-0.10) 10^3/uL Immature Gran # (Auto) (0.00-0.50) 10^3/uL Sodium (136-145) mmol/L Potassium (3.5-5.1) mmol/L Chloride (98-107) mmol/L Carbon Dioxide (21.0-32.0) mmol/L Anion Gap (5-15) mmol/L BUN (7-18) mg/dL Creatinine (0.51-1.17) mg/dL Est Cr Clr Drug Dosing mL/min Estimated GFR (MDRD) mL/min Glucose (70-140) mg/dL POC Glucose 149 H 150 H 156 H (70-140) mg/dL Calcium (8.7-10.3) mg/dL Vancomycin Trough (18.0-26.0) ug/mL 07/18/21 07/19/21 07/19/21 Range/Units 22:48 07:05 07:05 WBC 4.19 L (5.00-10.00) 10^3/uL RBC 3.68 L (3.80-5.50) 10^6/uL Hgb 10.6 L (12.0-16.0) g/dL Hct 34.2 L (37.0-47.0) % MCV 92.9 H (82.0-92.0) fL MCH 28.8 (27.0-31.0) pg MCHC 31.0 L (32.0-36.0) g/dL RDW 15.8 H (11.5-14.5) % Plt Count 280 (150-400) 10^3/uL MPV 9.0 (7.4-10.4) fL Immature Gran % (Auto) 0.2 (0.0-5.0) % Neut % (Auto) 64.0 (50.0-70.0) % Lymph % (Auto) 26.5 (20.0-40.0) % Knott % (Auto) 9.1 H (2.0-8.0) % Eos % (Auto) 0.2 L (1.0-3.0) % Baso % (Auto) 0.0 (0.0-1.0) % Neut # (Auto) 2.68 (2.50-7.00) 10^3/uL Lymph # (Auto) 1.11 (1.00-4.00) 10^3/uL Knott # (Auto) 0.38 (0.10-0.80) 10^3/uL Eos # (Auto) 0.01 L (0.10-0.30) 10^3/uL Baso # (Auto) 0.00 (0.00-0.10) 10^3/uL Immature Gran # (Auto) 0.01 (0.00-0.50) 10^3/uL Sodium 145 (136-145) mmol/L Potassium 4.5 (3.5-5.1) mmol/L Chloride 108 H (98-107) mmol/L Carbon Dioxide 24.0 (21.0-32.0) mmol/L Anion Gap 17.5 H (5-15) mmol/L BUN 23 H (7-18) mg/dL Creatinine 0.57 (0.51-1.17) mg/dL Est Cr Clr Drug Dosing 85.74 mL/min Estimated GFR (MDRD) > 60 mL/min Glucose 122 (70-140) mg/dL POC Glucose (70-140) mg/dL Calcium 8.6 L (8.7-10.3) mg/dL Vancomycin Trough 22.0 (18.0-26.0) ug/mL Patricio Results Last 24 Hours: Microbiology 07/16/21 22:50 Aerobic Blood Culture - Preliminary Blood - Venous NO GROWTH AFTER 2 DAYS Anaerobic Blood Culture - Preliminary NO GROWTH AFTER 2 DAYS 07/16/21 22:50 Aerobic Blood Culture - Preliminary Blood - Venous - Lab Draw NO GROWTH AFTER 2 DAYS Anaerobic Blood Culture - Preliminary NO GROWTH AFTER 2 DAYS Med Orders - Current: Current Medications Acetaminophen (Acetaminophen 325 Mg Tab) 650 mg PO Q6H PRN PRN Reason: Pain Last Admin: 07/19/21 09:28 Dose: 650 mg Documented by: Albuterol (Albuterol 8 Gm Inhaler) 0 gm INH Q4H PRN PRN Reason: Shortness of Breath Last Admin: 07/19/21 09:16 Dose: 2 puff Documented by: Allopurinol (Allopurinol 100 Mg Tab) 400 mg PO BEDTIME [facility] Last Admin: 07/18/21 20:28 Dose: 400 mg Documented by: Amlodipine Besylate (Amlodipine 5 Mg Tab) 10 mg PO DAILY [facility] Last Admin: 07/19/21 09:34 Dose: 10 mg Documented by: Artificial Tears (Carboxymethylcellulose Sodium 0.5% Ophth Soln 15 Ml Bottle) 0 ml EYEBOTH Q4H PRN PRN Reason: Dry Eyes Ascorbic Acid (Ascorbic Acid 500 Mg Tab) 1,000 mg PO DAILY [facility] Last Admin: 07/19/21 09:29 Dose: 1,000 mg Documented by: Aspirin (Aspirin 325 Mg Tab.Ec) 325 mg PO DAILY [facility] Last Admin: 07/19/21 09:29 Dose: 325 mg Documented by: Buspirone HCl (Buspirone 10 Mg Tab) 10 mg PO BEDTIME [facility] Last Admin: 07/18/21 20:28 Dose: 10 mg Documented by: Calcium Carbonate/Glycine (Calcium Carbonate 500 Mg Tab.Chew) 1,000 mg PO DAILY PRN PRN Reason: Heartburn Calcium Citrate (Calcium Citrate/Vitamin D3 315 Mg-250 Unit Tab) 2 tab PO DAILY [facility] Last Admin: 07/19/21 09:29 Dose: 2 tab Documented by: Carvedilol (Carvedilol 12.5 Mg Tab) 12.5 mg PO QPM [facility] Last Admin: 07/18/21 20:28 Dose: 12.5 mg Documented by: Carvedilol (Carvedilol 12.5 Mg Tab) 25 mg PO QAM [facility] Last Admin: 07/19/21 09:35 Dose: 25 mg Documented by: Clotrimazole (Clotrimazole 1% Crm 30 Gm Tube) 1 gm TOP BID [facility] Dextrose/Water (50% Dextrose In Water 50 Ml Syringe) 50 ml IVPUSH ASDIRECTED PRN PRN Reason: Hypoglycemia Diclofenac Sodium (Diclofenac Sodium 50 Mg Tab.Ec) 50 mg PO BIDMEALS [facility] Last Admin: 07/19/21 09:29 Dose: 50 mg Documented by: Diphenhydramine HCl (Diphenhydramine 25 Mg Cap) 25 mg PO Q4H PRN PRN Reason: Other Enoxaparin Sodium (Enoxaparin 40 Mg/0.4 Ml Syringe) 40 mg SUBCUT DAILY [facility] Last Admin: 07/19/21 09:26 Dose: 40 mg Documented by: Fish Oil (Fish Oil/[place]-3 Fatty Acids 1 Gm Cap) 1 gm PO DAILY [facility] Last Admin: 07/19/21 09:29 Dose: 1 gm Documented by: Glucagon (Glucagon,Human Recombinant 1 Mg Vial) 1 mg IM ASDIRECTED PRN PRN Reason: Hypoglycemia Glucosamine/Chondroitin (Chondroitin/Glucosamine Cap) 1 cap PO DAILY [facility] Last Admin: 07/19/21 09:29 Dose: 1 cap Documented by: Hydroxychloroquine Sulfate (Hydroxychloroquine 200 Mg Tab) 200 mg PO BIDMEALS [facility] Last Admin: 07/19/21 09:30 Dose: 200 mg Documented by: Piperacillin/Tazobactam/ (Dextrose 3.375 gm/ Premix) 50 mls @ 100 mls/hr IV Q6H [facility] Last Admin: 07/19/21 05:41 Dose: 100 mls/hr Documented by: Sodium Chloride (Normal Saline) 100 mls @ 125 mls/hr IV ASDIRECTED [facility] Last Admin: 07/18/21 23:25 Dose: 125 mls/hr Documented by: Vancomycin HCl 0.75 gm/ Sodium (Chloride) 250 mls @ 166.667 mls/hr IV Q12H [facility] Last Admin: 07/19/21 00:43 Dose: 166.667 mls/hr Documented by: Ibuprofen (Ibuprofen 400 Mg Tab) 400 mg PO Q4H PRN PRN Reason: Pain Last Admin: 07/17/21 09:54 Dose: 400 mg Documented by: Insulin Aspart (Insulin Aspart 100 Units/Ml 3 Ml Pen) 2 - 10 unit SUBCUT WITHMEALSANDBED [facility]; Protocol Last Admin: 07/19/21 09:10 Dose: 2 unit Documented by: Insulin Glargine (Insulin Glargine,Hum.Rec.Anlog 100 Unit/Ml 3 Ml Pen) 26 unit SUBCUT BEDTIME [facility] Last Admin: 07/18/21 20:31 Dose: 26 unit Documented by: Ketorolac Tromethamine (Ketorolac 30 Mg/Ml Sdv) 30 mg IVPUSH Q12H PRN PRN Reason: Pain Stop: 07/22/21 15:09 Last Admin: 07/18/21 10:22 Dose: 30 mg Documented by: Lactobacillus Rhamnosus (Lactobacillus Rhamnosus Gg (Probiotic) Cap) 1 cap PO DAILY [facility] Last Admin: 07/19/21 09:29 Dose: 1 cap Documented by: Loperamide HCl (Loperamide 2 Mg Cap) 2 mg PO Q4H PRN PRN Reason: Diarrhea Loratadine (Loratadine 10 Mg Tab) 10 mg PO DAILY [facility] Last Admin: 07/19/21 09:30 Dose: 10 mg Documented by: Losartan Potassium (Losartan 50 Mg Tab) 100 mg PO DAILY [facility] Last Admin: 07/19/21 09:30 Dose: 100 mg Documented by: Magnesium Oxide (Magnesium Oxide 500 Mg Tab) 250 mg PO DAILY [facility] Last Admin: 07/19/21 09:28 Dose: 250 mg Documented by: Multivitamins/Minerals (Multivitamins With Minerals/Iron/Folic Acid/Lycopene Tab) 1 tab PO DAILY [facility] Last Admin: 07/19/21 09:29 Dose: 1 tab Documented by: Liraglutide [Victoza 2-Javier] 18 Mg/3 Ml PenOwn Med 1.8 mg SQ DAILY [facility] Last Admin: 07/19/21 09:13 Dose: 1.8 mg Documented by: Netarsudil Mesylat/Latanoprost [ Rocklatan 0.02%-0. 005% EyeOwn Med 1 drop EYEBOTH DAILY [facility] Last Admin: 07/19/21 09:35 Dose: 1 drop Documented by: Thyroid,Pork [[place] Thyroid] 120 Mg TabletOwn Med 120 mg PO ACBREAKFAST [facility] Last Admin: 07/19/21 06:37 Dose: 120 mg Documented by: Thyroid,Pork [[place] Thyroid] 30 Mg TabletOwn Med 30 mg PO ACBREAKFAST [facility] Last Admin: 07/19/21 06:38 Dose: 30 mg Documented by: Empagliflozin [ Jardiance] 10 Mg TabletOwn Med 10 mg PO DAILY@1800 [facility] Last Admin: 07/18/21 17:36 Dose: 10 mg Documented by: Oxybutynin Chloride (Oxybutynin 5 Mg Tab.Er) 10 mg PO BEDTIME [facility] Last Admin: 07/18/21 20:28 Dose: 10 mg Documented by: Pantoprazole Sodium (Pantoprazole 40 Mg Tab.Cr) 40 mg PO ACBREAKFAST [facility] Last Admin: 07/19/21 06:37 Dose: 40 mg Documented by: Prednisone (Prednisone 10 Mg Tab) 10 mg PO QPM [facility] Last Admin: 07/18/21 20:28 Dose: 10 mg Documented by: Prednisone (Prednisone 20 Mg Tab) 20 mg PO QAM [facility] Last Admin: 07/19/21 09:29 Dose: 20 mg Documented by: Sodium Chloride (Sodium Chloride 0.9% 10 Ml Syringe) 10 ml FLUSH Q8HR PRN PRN Reason: keep vein open Last Admin: 07/19/21 05:40 Dose: 10 ml Documented by: Timolol Maleate (Timolol Maleate 0.5% Ophth Soln 5 Ml Bottle) 0 ml EYEBOTH BEDTIME [facility] Last Admin: 07/18/21 20:31 Dose: 1 drop Documented by: Tizanidine HCl (Tizanidine 4 Mg Tab) 6 mg PO BEDTIME PRN PRN Reason: Other Vancomycin HCl (Pharmacy To Dose - Vancomycin) 1 dose .XX ASDIRECTED [facility] Discontinued Medications Acetaminophen (Acetaminophen 325 Mg Tab) 650 mg PO Q6H PRN PRN Reason: Pain Allopurinol (Allopurinol 100 Mg Tab) 600 mg PO BEDTIME [facility] Last Admin: 07/17/21 21:33 Dose: 400 mg Documented by: Dextrose/Water (50% Dextrose In Water 50 Ml Syringe) 50 ml IVPUSH ASDIRECTED PRN PRN Reason: Hypoglycemia Glucagon (Glucagon,Human Recombinant 1 Mg Vial) 1 mg IM ASDIRECTED PRN PRN Reason: Hypoglycemia Vancomycin HCl 1 gm/ Sodium (Chloride) 250 mls @ 166.667 mls/hr IV Q12H [facility] Last Admin: 07/18/21 11:49 Dose: 166.667 mls/hr Documented by: Vancomycin HCl 0.75 gm/ Sodium (Chloride) 250 mls @ 250 mls/hr IV Q12H [facility] Insulin Aspart (Insulin Aspart 100 Units/Ml 3 Ml Pen) 0 unit SUBCUT WITHMEALSANDBED [facility]; Protocol Last Admin: 07/17/21 13:11 Dose: Not Given Documented by: Insulin Glargine (Insulin Glargine,Hum.Rec.Anlog 100 Unit/Ml 3 Ml Pen) 26 unit SUBCUT DAILY [facility] Last Admin: 07/17/21 13:11 Dose: Not Given Documented by: Insulin Glargine (Insulin Glargine,Hum.Rec.Anlog 100 Unit/Ml 3 Ml Pen) 26 unit SUBCUT DAILY [facility] Last Admin: 07/17/21 13:11 Dose: Not Given Documented by: Empagliflozin [ Jardiance] 10 Mg TabletOwn Med 10 mg PO DAILY [facility] Last Admin: 07/17/21 16:05 Dose: 10 mg Documented by: - Exam General: Alert, Oriented, Cooperative, No Acute Distress Lungs: Clear to Auscultation, Normal Respiratory Effort Cardiovascular: Regular Rate, Regular Rhythm, No Murmurs - Patient Data Lab Results Last 24 hrs: Laboratory Results - last 24 hr 07/18/21 07/18/21 07/18/21 Range/Units 11:48 17:34 20:26 WBC (5.00-10.00) 10^3/uL RBC (3.80-5.50) 10^6/uL Hgb (12.0-16.0) g/dL Hct (37.0-47.0) % MCV (82.0-92.0) fL MCH (27.0-31.0) pg MCHC (32.0-36.0) g/dL RDW (11.5-14.5) % Plt Count (150-400) 10^3/uL MPV (7.4-10.4) fL Immature Gran % (Auto) (0.0-5.0) % Neut % (Auto) (50.0-70.0) % Lymph % (Auto) (20.0-40.0) % Knott % (Auto) (2.0-8.0) % Eos % (Auto) (1.0-3.0) % Baso % (Auto) (0.0-1.0) % Neut # (Auto) (2.50-7.00) 10^3/uL Lymph # (Auto) (1.00-4.00) 10^3/uL Knott # (Auto) (0.10-0.80) 10^3/uL Eos # (Auto) (0.10-0.30) 10^3/uL Baso # (Auto) (0.00-0.10) 10^3/uL Immature Gran # (Auto) (0.00-0.50) 10^3/uL Sodium (136-145) mmol/L Potassium (3.5-5.1) mmol/L Chloride (98-107) mmol/L Carbon Dioxide (21.0-32.0) mmol/L Anion Gap (5-15) mmol/L BUN (7-18) mg/dL Creatinine (0.51-1.17) mg/dL Est Cr Clr Drug Dosing mL/min Estimated GFR (MDRD) mL/min Glucose (70-140) mg/dL POC Glucose 149 H 150 H 156 H (70-140) mg/dL Calcium (8.7-10.3) mg/dL Vancomycin Trough (18.0-26.0) ug/mL 07/18/21 07/19/21 07/19/21 Range/Units 22:48 07:05 07:05 WBC 4.19 L (5.00-10.00) 10^3/uL RBC 3.68 L (3.80-5.50) 10^6/uL Hgb 10.6 L (12.0-16.0) g/dL Hct 34.2 L (37.0-47.0) % MCV 92.9 H (82.0-92.0) fL MCH 28.8 (27.0-31.0) pg MCHC 31.0 L (32.0-36.0) g/dL RDW 15.8 H (11.5-14.5) % Plt Count 280 (150-400) 10^3/uL MPV 9.0 (7.4-10.4) fL Immature Gran % (Auto) 0.2 (0.0-5.0) % Neut % (Auto) 64.0 (50.0-70.0) % Lymph % (Auto) 26.5 (20.0-40.0) % Knott % (Auto) 9.1 H (2.0-8.0) % Eos % (Auto) 0.2 L (1.0-3.0) % Baso % (Auto) 0.0 (0.0-1.0) % Neut # (Auto) 2.68 (2.50-7.00) 10^3/uL Lymph # (Auto) 1.11 (1.00-4.00) 10^3/uL Knott # (Auto) 0.38 (0.10-0.80) 10^3/uL Eos # (Auto) 0.01 L (0.10-0.30) 10^3/uL Baso # (Auto) 0.00 (0.00-0.10) 10^3/uL Immature Gran # (Auto) 0.01 (0.00-0.50) 10^3/uL Sodium 145 (136-145) mmol/L Potassium 4.5 (3.5-5.1) mmol/L Chloride 108 H (98-107) mmol/L Carbon Dioxide 24.0 (21.0-32.0) mmol/L Anion Gap 17.5 H (5-15) mmol/L BUN 23 H (7-18) mg/dL Creatinine 0.57 (0.51-1.17) mg/dL Est Cr Clr Drug Dosing 85.74 mL/min Estimated GFR (MDRD) > 60 mL/min Glucose 122 (70-140) mg/dL POC Glucose (70-140) mg/dL Calcium 8.6 L (8.7-10.3) mg/dL Vancomycin Trough 22.0 (18.0-26.0) ug/mL Result Diagrams: 07/19/21 07:05 07/19/21 07:05 Patricio Results Last 24 hrs: Microbiology 07/16/21 22:50 Aerobic Blood Culture - Preliminary Blood - Venous NO GROWTH AFTER 2 DAYS Anaerobic Blood Culture - Preliminary NO GROWTH AFTER 2 DAYS 07/16/21 22:50 Aerobic Blood Culture - Preliminary Blood - Venous - Lab Draw NO GROWTH AFTER 2 DAYS Anaerobic Blood Culture - Preliminary NO GROWTH AFTER 2 DAYS Sepsis Event Note - Evaluation Sepsis Screening Result: No Definite Risk - Focused Exam Vital Signs: Vital Signs Temp Pulse Pulse Resp BP BP Pulse Ox 07/19/21 09:35 74 182/85 H 07/19/21 09:34 182/85 H 07/19/21 09:30 182/85 H 07/19/21 06:31 96.1 F L 74 18 182/85 H 94 L 07/19/21 03:00 96.4 F L 75 18 177/87 H 95 - Problem List Review Problem List Initiated/Reviewed/Updated: Yes - My Orders Last 24 Hours: My Active Orders 07/18/21 21:00 allopurinoL [Zyloprim] 400 mg PO BEDTIME 07/19/21 08:00 PT Evaluation and Treatment [CONS] Routine 07/19/21 10:30 Loperamide [Imodium] 2 mg PO Q4H PRN 07/19/21 10:45 Clotrimazole [Lotrimin AF 1% Crm] 1 gm TOP BID 07/20/21 05:11 BMP [BASIC METABOLIC PANEL,BMP] [CHEM] AM CBC WITH AUTO DIFF [HEME] AM 07/21/21 05:11 BMP [BASIC METABOLIC PANEL,BMP] [CHEM] AM CBC WITH AUTO DIFF [HEME] AM 07/22/21 05:11 BMP [BASIC METABOLIC PANEL,BMP] [CHEM] AM CBC WITH AUTO DIFF [HEME] AM 07/23/21 05:11 BMP [BASIC METABOLIC PANEL,BMP] [CHEM] AM CBC WITH AUTO DIFF [HEME] AM - Assessment Assessment:: Admission Diagnoses: Infected diabetic foot ulcer with osteomyelitis and possible necrotizing infection - Vancomycin pharm to dose and Zosyn q 8 hours - Dressing to wound - Await culture results - Will likely need MRI of the foot and ankle on 07/22 - Will attempt to consult with podiatry on 07/19 about options Debility secondary to above - PT consultation - Discussed that without help in the home is it highly unlikely she could go home with home infusions Secondary Diagnoses: Diarrhea secondary to antibiotic use - Imodium 2 mg PO q 4 hours PRN diarrhea - She is already on a probiotic Onychomycosis: - Clotrimazole topically to the affected nails BID PRN per patient preference Gout - Allopurinol 600 mg PO qhs DM - Lantus 26 units subcut daily - SSI per medium dose protocol - Victoza 1.8 mg subcut daily (on hold due to not on formulary) - Jardiance 10 mg PO daily - Accuchecks HTN - Amlodipine 10 mg PO daily - Losartan 100 mg PO daily RA - Plaquenil 200 mg PO BID - Prednisone 30 mg PO daily (she refuses to see rheumatology or try other medications) OAB - Oxybutynin 10 mg PO daily Hypothyroidism - [place] Thyroid 150 mg PO daily CODE STATUS: DNR/DNI 07/17: I had a long discuss with Slime that she will not feel better until the source of the infection is removed, i.e. amputation and that we will not be able to fix her problem with antibiotics alone. I counseled her she is not destined for the NH simply because she has an amputation but would likely be there for a short time for rehabilitation and learning how to live independently with a new situation. She seemed to be a little more open to considering amputation if that is what podiatry felt would be appropriate.
[2021-07-19] MEDS: Clotrimazole 1% Crm 30 GM Tube TOP SCH ×2 (12:24→20:54)
[2021-07-19] MEDS: Sodium Chloride 0.9% 100 ML IV SCH (12:24)
[2021-07-19] MEDS: Ketorolac 30 MG/ML SDV IVPUSH PRN (12:26)
[2021-07-19] MEDS: Loperamide 2 MG Cap PO PRN ×3 (12:26→22:44)
[2021-07-19] MEDS: EMPAGLIFLOZIN 10 MG PO SCH (17:30)
[2021-07-19] MEDS: Insulin Glargine,Hum.Rec.Anlog 100 UNIT/ML 3 ML Pen SUBCUT SCH (20:47)
[2021-07-19] MEDS: Oxybutynin 5 MG Tab.ER PO SCH (20:51)
[2021-07-19] MEDS: Allopurinol 100 MG Tab PO SCH (20:52)
[2021-07-19] MEDS: busPIRone 10 MG Tab PO SCH (20:53)
[2021-07-19] MEDS: predniSONE 10 MG Tab PO SCH (20:53)
[2021-07-19] MEDS: Timolol Maleate 0.5% Ophth Soln 5 ML Bottle EYEBOTH SCH (20:59)
[2021-07-20] MEDS: Sodium Chloride 0.9% 10 ML Syringe FLUSH PRN (00:06)
[2021-07-20] MEDS: Piperacillin/Tazobactam/Dext 3.375 GM in Premix Bag 1 BAG IV SCH ×3 (00:08→11:10)
[2021-07-20] MEDS: Loperamide 2 MG Cap PO PRN ×2 (02:19→07:29)
[2021-07-20] MEDS: Sodium Chloride 0.9% 100 ML IV SCH (05:48)
[2021-07-20] MEDS: Ketorolac 30 MG/ML SDV IVPUSH PRN (06:03)
[2021-07-20] MEDS: Pantoprazole 40 MG Tab.CR PO SCH (07:29)
[2021-07-20] MEDS: THYROID PORK 120 MG PO SCH (07:29)
[2021-07-20] MEDS: THYROID PORK 30 MG PO SCH (07:29)
[2021-07-20 08:51] LABS: CHLORIDE,CL 108 mmol/L (98-107); SODIUM,NA 143 mmol/L (136-145)
[2021-07-20] MEDS: Insulin Aspart 100 Units/ML 3 ML Pen SUBCUT SCH (08:56)
[2021-07-20] MEDS: Magnesium Oxide 500 MG Tab PO SCH (08:58)
[2021-07-20] MEDS: Ascorbic Acid 500 MG Tab PO SCH (08:58)
[2021-07-20] MEDS: Fish Oil/Omega-3 Fatty Acids 1 Gm Cap PO SCH (08:59)
[2021-07-20] MEDS: Enoxaparin 40 MG/0.4 ML Syringe SUBCUT SCH (08:59)
[2021-07-20] MEDS: Losartan 50 MG Tab PO SCH (08:59)
[2021-07-20] MEDS: amLODIPine 5 MG Tab PO SCH (09:00)
[2021-07-20] MEDS: Aspirin 325 MG Tab.EC PO SCH (09:01)
[2021-07-20] MEDS: Calcium Citrate/Vitamin D3 315 MG-250 Unit Tab PO SCH (09:02)
[2021-07-20] MEDS: Diclofenac Sodium 50 MG Tab.EC PO SCH (09:02)
[2021-07-20] MEDS: Hydroxychloroquine 200 MG Tab PO SCH (09:02)
[2021-07-20] MEDS: Multivitamins with Minerals/Iron/Folic Acid/Lycopene Tab PO SCH (09:03)
[2021-07-20] MEDS: Chondroitin/Glucosamine Cap PO SCH (09:03)
[2021-07-20] MEDS: Lactobacillus Rhamnosus GG (Probiotic) Cap PO SCH (09:03)
[2021-07-20] MEDS: Loratadine 10 MG Tab PO SCH (09:04)
[2021-07-20] MEDS: Carvedilol 12.5 MG Tab PO SCH (09:04)
[2021-07-20] MEDS: predniSONE 20 MG Tab PO SCH (09:04)
[2021-07-20] MEDS: Clotrimazole 1% Crm 30 GM Tube TOP SCH (09:09)
[2021-07-20] MEDS: LATANOPROST EYEBOTH SCH (09:10)
[2021-07-20] MEDS: NETARSUDIL MESYLAT EYEBOTH SCH (09:10)
[2021-07-20] MEDS: LIRAGLUTIDE 18 MG/3 ML SQ SCH (09:12)
--- NOTE | 2021-07-20 11:05 | CR ---
[id number] RAD/RAD Foot Left 3V Min EXAM: 3 VIEWS LEFT FOOT. INDICATION: EVAL FOR OSTEOMYELITIS. COMPARISON: None. DISCUSSION: No fracture, dislocation or other acute osseous abnormality. Pes planus. Moderate to advanced degenerative changes seen throughout the left foot and ankle. No definite cortical disruption to suggest acute osteomyelitis. Vascular calcifications. IMPRESSION: 1. No definite radiographic findings to suggest acute osteomyelitis. Nick Kelley DO 07/20/21 1104 Thank you for allowing us to participate in the care of your patient.
[2021-07-20 11:41] VITALS: BP 181/96; PULSE 92
--- NOTE | 2021-07-20 11:44 | PCM.DCSUM1 ---
Discharge Summary - Hospital Course Free Text/Narrative:: Admission Date: 07/16/2021 Discharge Date: 07/20/2021 Disposition: Swingbed Admission Diagnoses: Infected diabetic foot ulcer with osteomyelitis and possible necrotizing infection, tunnels to the bone - Vancomycin pharm to dose and Zosyn q 8 hours - Dressing to wound - Await culture results - Will get MRI of the foot and tib/fib on 07/22 - Consulted with podiatry who advises amputation but recommends MRI Debility secondary to above - PT consultation, not much PT is able to help with - Discussed that without help in the home is it highly unlikely she could go home with home infusions Secondary Diagnoses: Diarrhea secondary to antibiotic use - Imodium 2 mg PO q 4 hours PRN diarrhea, has not been helping, will start lomotil 07/20 - She is already on a probiotic Onychomycosis: - Clotrimazole topically to the affected nails BID PRN per patient preference Gout - Allopurinol 600 mg PO qhs DM - Lantus 26 units subcut daily - SSI per medium dose protocol - Victoza 1.8 mg subcut daily (on hold due to not on formulary) - Jardiance 10 mg PO daily - Accuchecks HTN - Amlodipine 10 mg PO daily - Losartan 100 mg PO daily RA - Plaquenil 200 mg PO BID - Prednisone 30 mg PO daily (she refuses to see rheumatology or try other medications) OAB - Oxybutynin 10 mg PO daily, she desires to go up to 20 mg PO daily due to worsening symptoms on 07/20 Hypothyroidism - [employer] Thyroid 150 mg PO daily CODE STATUS: DNR/DNI 07/17/2021: Slime was admitted through the ER on 07/16 after having a telehealth visit with me earlier that day encouraged her to see ER evaluation and monty atment. She was generally feeling unwell. She has a hx of a diabetic foot ulcer on the right that she has had debridement on in the past as well as many weeks of antibiotics. She has been septic from this in the past. She has not been seen in person since December of 2020 having done several telehealth visits for diabetes, HTN but not really about her foot. She is on chronic Keflex 250 mg PO daily for prophylaxis. She recently finished a 14 day course of Bactrim, Keflex and ciprofloxacin based on previous sensitivity results but nothing current. She stated that maybe she just needed to be on the antibiotics longer. In the ER she was noted to have a 2.5 x 3 cm ulcer to her medial foot just inferior to her great toe. She does have Charcot foot as well and is not very mobile. X- ray was done an reported ankle/hind foot septic arthritis/osteomyelitis with gas in the distal leg and hind foot suggestive of a necrotizing infection. Slime was counseled that due to the chronic nature of this we can admit her for antibiotics but she will likely benefit from an amputation to which she states "then I'll just end up in the correction and what life is that, I may as well blow my brains out." Then she asks me to give her morphine as an overdose "so I can just go to sleep". She then states "I would never do that but it just feels hopeless." She states her mother ended up have several amputations over times and had no quality of life and she does not want that. Wound and blood cultures were obtained and she was started on Vancomycin and Zosyn for broad coverage. She has no questions today. 07/18: No calls overnight. Slime is struggling with what will be the best option for her and would like to avoid amputation. She states she is requiring help with all cares and would not be able to be on her own at this time. She has a walking boot at home she uses for stability but has not been using that due to her ulcer on the right foot. She is questioning if she could do antib iotics at home but has no one to help her. Appetite is good. Labs OK, blood cultures negative to date. Has been running intermittently hypertensive. 07/19: No calls overnight. Slime is reporting diarrhea from the antibiotics and is requesting Imodium. She also states she has a nail fungus of her left thumb and puts on a generic "antifungal cream" to the nail and is wondering if she could get this. 07/20: No calls overnight. I consulted with Dr. Jose Antonio Perez, podiatry at [facility] in [place] as that is where Slime would prefer to be evaluated. He looked at her imaging and is very concerned about her and states that he would advise amputation, likely below the knee due to the gas seen in the distal tib/fib tissue. He recommends MRI of the foot and tib fib to assess the level of gas in the tissues but feels if this is not amputated she may very likely lose her life. He feels she would be able to eventually be weight bearing again. Slime is worried she won't heal and will have more problems if she proceeds with this route. Dr. Perez is willing to see her as an outpatient for consultation and further evaluation. Will be difficult to arrange transportation. He agrees she needs antibiotics now as a life saving measure. Blood cultures have been negative to date and so will get PICC placement as her IV sites are blowing. I tried to talk to Slime and convince her that this is a life saving measure, she is concerned she will end up wheel chair bound and bound to her home. I explained to her that she is already confined to her home, this would give her the opportunity to feel better and improve her quality of life. She also requested her Oxybutynin be increased from 10 mg to 20 mg PO daily for better coverage and will also try Lomotil for her antibiotic induced diarrhea. She has a small ulcer on her left foot with minimal drainage. X-ray of the foot obtained which showed no osteomyelitis. Transition to swingbed today. Diagnosis: Stroke: No Modified [place] Scale: Mod.Sev.Disability ;Unable to Walk/Attend Bodily Needs W/O Assistance Modified Parker Scale Score: 4 - Discharge Data Discharge Date: 07/20/21 Discharge Disposition: DC/Tfer W/I Hosp To Swing Condition: Good - Referral to Home Health Primary Care Physician: Maria Esther Castillo MD - Patient Summary/Data Consults: Consultations 07/19/21 08:00 PT Evaluation and Treatment [CONS] Routine - Discharge Plan *PRESCRIPTION DRUG MONITORING PROGRAM REVIEWED*: Not Applicable *COPY OF PRESCRIPTION DRUG MONITORING REPORT IN PATIENT [facility]CHE[facility]: Not Applicable Home Medications: Home Meds Losartan Potassium 100 mg PO DAILY 02/28/17 [History] Acetaminophen [Tylenol] 650 mg PO Q6H PRN 05/28/18 [History] Albuterol [Ventolin HFA] 1 - 2 puff INH Q4H PRN 05/28/18 [History] Calcium Carbonate [Calcium] 1,000 mg PO DAILY PRN 05/28/18 [History] L. Acidophilus/L.bulgaricus [Lactobacillus Tablet] 1 tab PO DAILY 05/28/18 [History] Loratadine [Claritin] 10 mg PO DAILY 05/28/18 [History] Multivitamin with Minerals [Multivitamins with Minerals] 1 tab PO DAILY 05/28/18 [History] Oxybutynin [Oxybutynin ER] 10 mg PO BEDTIME 05/28/18 [History] Pantoprazole Sodium [Protonix] 40 mg PO ACBREAKFAST 05/28/18 [History] Thyroid,Pork [[employer] Thyroid] 150 mg PO ACBREAKFAST 05/28/18 [History] tiZANidine [Zanaflex] 6 mg PO BEDTIME PRN 06/01/18 [History] Calcium Carbonate/Vitamin D3 [Calcium 600 + Vit D Tablet] 2 tab PO DAILY 05/03/19 [History] Diclofenac Sodium [Voltaren] 50 mg PO BIDMEALS 05/03/19 [History] Fish Oil/Justice-3 Fatty Acids [Fish Oil 1,000 MG] 1 cap PO DAILY 05/03/19 [History] Glucosam/Chond/Collagen/Hyalur [Glucosamine Chondroitin] 1 tab PO DAILY 05/03/19 [History] Hydroxychloroquine Sulfate 200 mg PO BIDMEALS 05/03/19 [History] cephALEXin [Keflex] 250 mg PO BID 05/03/19 [History] diphenhydrAMINE [Benadryl] 25 mg PO Q4H PRN 05/03/19 [History] predniSONE [Prednisone] 20 mg PO QAM 05/03/19 [History] Ascorbic Acid [Vitamin C] 1,000 mg PO DAILY 12/28/20 [History] Carboxymethylcellulose Sodium [Artificial Tears] 1 drop EYEBOTH Q4H PRN 12/28/20 [History] Empagliflozin [Jardiance] 10 mg PO DAILY 12/28/20 [History] Insulin Aspart [NovoLOG] 0 unit SUBCUT WITHMEALSANDBED 12/28/20 [History] Insulin Glarg,Human.Rec.Analog [Lantus Solostar] 26 unit SUBCUT DAILY 12/28/20 [History] Liraglutide [Victoza 2-Javier] 1.8 mg SQ DAILY 12/28/20 [History] Magnesium 250 mg PO DAILY 12/28/20 [History] Netarsudil Mesylat/Latanoprost [Rocklatan 0.02%-0.005% Eye Drp] 1 drop OP DAILY 12/28/20 [History] amLODIPine Besylate [Amlodipine Besylate] 10 mg PO DAILY 12/28/20 [History] carvediloL [Carvedilol] 12.5 mg PO QPM 12/28/20 [History] carvediloL [Carvedilol] 25 mg PO QAM 12/28/20 [History] predniSONE [Prednisone] 10 mg PO QPM 12/28/20 [History] Aspirin [Aspirin EC] 325 mg PO DAILY 07/16/21 [History] Timolol Maleate/PF [Timolol Maleate 0.5% Eye Drop] 1 each OP BEDTIME 07/16/21 [History] busPIRone HCl [Buspirone HCl] 10 mg PO BEDTIME 07/16/21 [History] allopurinoL [Zyloprim] 400 mg PO BEDTIME 07/18/21 [History] Forms: ED Department Discharge Referrals: PCP,None [Ordering Only Provider] - - Discharge Summary/Plan Comment DC Time >30 min.: Yes Total # of Minutes for Discharge Time: 65 - General Info Date of Service: 07/20/21 Admission Dx/Problem (Free Text: Chronic foot infection with osteomyelitis. - Patient Data Vitals - Most Recent: Last Vital Signs Temp 96.3 F L 07/20/21 11:00 Pulse 92 07/20/21 11:00 Resp 24 H 07/20/21 11:00 BP 181/96 H 07/20/21 11:00 Pulse Ox 95 07/20/21 11:00 Weight - Most Recent: 199 lb 7 oz I&O - Last 24 hours: Intake & Output 07/19/21 07/20/21 07/20/21 22:59 06:59 14:59 Intake Total 1000 630 Balance 1000 630 Lab Results - Last 24 hrs: Laboratory Results - last 24 hr 07/19/21 07/19/21 07/20/21 Range/Units 20:47 22:38 07:00 WBC 4.07 L (5.00-10.00) 10^3/uL RBC 3.59 L (3.80-5.50) 10^6/uL Hgb 10.5 L (12.0-16.0) g/dL Hct 33.5 L (37.0-47.0) % MCV 93.3 H (82.0-92.0) fL MCH 29.2 (27.0-31.0) pg MCHC 31.3 L (32.0-36.0) g/dL RDW 16.0 H (11.5-14.5) % Plt Count 268 (150-400) 10^3/uL MPV 8.9 (7.4-10.4) fL Immature Gran % (Auto) 0.2 (0.0-5.0) % Neut % (Auto) 59.0 (50.0-70.0) % Lymph % (Auto) 30.0 (20.0-40.0) % Schley % (Auto) 9.6 H (2.0-8.0) % Eos % (Auto) 0.7 L (1.0-3.0) % Baso % (Auto) 0.5 (0.0-1.0) % Neut # (Auto) 2.40 L (2.50-7.00) 10^3/uL Lymph # (Auto) 1.22 (1.00-4.00) 10^3/uL Schley # (Auto) 0.39 (0.10-0.80) 10^3/uL Eos # (Auto) 0.03 L (0.10-0.30) 10^3/uL Baso # (Auto) 0.02 (0.00-0.10) 10^3/uL Immature Gran # (Auto) 0.01 (0.00-0.50) 10^3/uL Sodium (136-145) mmol/L Potassium (3.5-5.1) mmol/L Chloride (98-107) mmol/L Carbon Dioxide (21.0-32.0) mmol/L Anion Gap (5-15) mmol/L BUN (7-18) mg/dL Creatinine (0.51-1.17) mg/dL Est Cr Clr Drug Dosing mL/min Estimated GFR (MDRD) mL/min Glucose (70-140) mg/dL POC Glucose 154 H 135 (70-140) mg/dL Calcium (8.7-10.3) mg/dL 07/20/21 07/20/21 Range/Units 07:00 08:30 WBC (5.00-10.00) 10^3/uL RBC (3.80-5.50) 10^6/uL Hgb (12.0-16.0) g/dL Hct (37.0-47.0) % MCV (82.0-92.0) fL MCH (27.0-31.0) pg MCHC (32.0-36.0) g/dL RDW (11.5-14.5) % Plt Count (150-400) 10^3/uL MPV (7.4-10.4) fL Immature Gran % (Auto) (0.0-5.0) % Neut % (Auto) (50.0-70.0) % Lymph % (Auto) (20.0-40.0) % Schley % (Auto) (2.0-8.0) % Eos % (Auto) (1.0-3.0) % Baso % (Auto) (0.0-1.0) % Neut # (Auto) (2.50-7.00) 10^3/uL Lymph # (Auto) (1.00-4.00) 10^3/uL Schley # (Auto) (0.10-0.80) 10^3/uL Eos # (Auto) (0.10-0.30) 10^3/uL Baso # (Auto) (0.00-0.10) 10^3/uL Immature Gran # (Auto) (0.00-0.50) 10^3/uL Sodium 143 (136-145) mmol/L Potassium 4.1 (3.5-5.1) mmol/L Chloride 108 H (98-107) mmol/L Carbon Dioxide 28.1 (21.0-32.0) mmol/L Anion Gap 11.0 (5-15) mmol/L BUN 21 H (7-18) mg/dL Creatinine 0.56 (0.51-1.17) mg/dL Est Cr Clr Drug Dosing 87.27 mL/min Estimated GFR (MDRD) > 60 mL/min Glucose 105 (70-140) mg/dL POC Glucose 95 (70-140) mg/dL Calcium 9.1 (8.7-10.3) mg/dL [facility] Results - Last 24 hrs: Microbiology 07/16/21 23:00 Gram Stain - Final Foot, Right 07/16/21 22:50 Aerobic Blood Culture - Preliminary Blood - Venous NO GROWTH AFTER 3 DAYS Anaerobic Blood Culture - Preliminary NO GROWTH AFTER 3 DAYS 07/16/21 22:50 Aerobic Blood Culture - Preliminary Blood - Venous - Lab Draw NO GROWTH AFTER 3 DAYS Anaerobic Blood Culture - Preliminary NO GROWTH AFTER 3 DAYS Med Orders - Current: Current Medications Acetaminophen (Acetaminophen 325 Mg Tab) 650 mg PO Q6H PRN PRN Reason: Pain Last Admin: 07/19/21 21:00 Dose: 650 mg Documented by: Albuterol (Albuterol 8 Gm Inhaler) 0 gm INH Q4H PRN PRN Reason: Shortness of Breath Last Admin: 07/19/21 21:34 Dose: 2 puff Documented by: Allopurinol (Allopurinol 100 Mg Tab) 400 mg PO BEDTIME [facility] Last Admin: 07/19/21 20:52 Dose: 400 mg Documented by: Amlodipine Besylate (Amlodipine 5 Mg Tab) 10 mg PO DAILY [facility] Last Admin: 07/20/21 09:00 Dose: 10 mg Documented by: Artificial Tears (Carboxymethylcellulose Sodium 0.5% Ophth Soln 15 Ml Bottle) 0 ml EYEBOTH Q4H PRN PRN Reason: Dry Eyes Ascorbic Acid (Ascorbic Acid 500 Mg Tab) 1,000 mg PO DAILY [facility] Last Admin: 07/20/21 08:58 Dose: 1,000 mg Documented by: Aspirin (Aspirin 325 Mg Tab.Ec) 325 mg PO DAILY [facility] Last Admin: 07/20/21 09:01 Dose: 325 mg Documented by: Buspirone HCl (Buspirone 10 Mg Tab) 10 mg PO BEDTIME [facility] Last Admin: 07/19/21 20:53 Dose: 10 mg Documented by: Calcium Carbonate/Glycine (Calcium Carbonate 500 Mg Tab.Chew) 1,000 mg PO DAILY PRN PRN Reason: Heartburn Calcium Citrate (Calcium Citrate/Vitamin D3 315 Mg-250 Unit Tab) 2 tab PO DAILY [facility] Last Admin: 07/20/21 09:02 Dose: 2 tab Documented by: Carvedilol (Carvedilol 12.5 Mg Tab) 12.5 mg PO QPM [facility] Last Admin: 07/19/21 20:53 Dose: 12.5 mg Documented by: Carvedilol (Carvedilol 12.5 Mg Tab) 25 mg PO QAM [facility] Last Admin: 07/20/21 09:04 Dose: 25 mg Documented by: Clotrimazole (Clotrimazole 1% Crm 30 Gm Tube) 1 gm TOP BID [facility] Last Admin: 07/20/21 09:09 Dose: 1 applic Documented by: Dextrose/Water (50% Dextrose In Water 50 Ml Syringe) 50 ml IVPUSH ASDIRECTED PRN PRN Reason: Hypoglycemia Diclofenac Sodium (Diclofenac Sodium 50 Mg Tab.Ec) 50 mg PO BIDMEALS [facility] Last Admin: 07/20/21 09:02 Dose: 50 mg Documented by: Diphenhydramine HCl (Diphenhydramine 25 Mg Cap) 25 mg PO Q4H PRN PRN Reason: Other Enoxaparin Sodium (Enoxaparin 40 Mg/0.4 Ml Syringe) 40 mg SUBCUT DAILY [facility] Last Admin: 07/20/21 08:59 Dose: 40 mg Documented by: Fish Oil (Fish Oil/Justice-3 Fatty Acids 1 Gm Cap) 1 gm PO DAILY [facility] Last Admin: 07/20/21 08:59 Dose: 1 gm Documented by: Glucagon (Glucagon,Human Recombinant 1 Mg Vial) 1 mg IM ASDIRECTED PRN PRN Reason: Hypoglycemia Glucosamine/Chondroitin (Chondroitin/Glucosamine Cap) 1 cap PO DAILY [facility] Last Admin: 07/20/21 09:03 Dose: 1 cap Documented by: Hydroxychloroquine Sulfate (Hydroxychloroquine 200 Mg Tab) 200 mg PO BIDMEALS [facility] Last Admin: 07/20/21 09:02 Dose: 200 mg Documented by: Piperacillin/Tazobactam/ (Dextrose 3.375 gm/ Premix) 50 mls @ 100 mls/hr IV Q6H [facility] Last Admin: 07/20/21 11:10 Dose: 100 mls/hr Documented by: Sodium Chloride (Normal Saline) 100 mls @ 125 mls/hr IV ASDIRECTED [facility] Last Admin: 07/20/21 05:48 Dose: 125 mls/hr Documented by: Vancomycin HCl 0.75 gm/ Sodium (Chloride) 250 mls @ 166.667 mls/hr IV Q12H [facility] Ibuprofen (Ibuprofen 400 Mg Tab) 400 mg PO Q4H PRN PRN Reason: Pain Last Admin: 07/17/21 09:54 Dose: 400 mg Documented by: Insulin Aspart (Insulin Aspart 100 Units/Ml 3 Ml Pen) 2 - 10 unit SUBCUT WITHMEALSANDBED [facility]; Protocol Last Admin: 07/20/21 08:56 Dose: Not Given Documented by: Insulin Glargine (Insulin Glargine,Hum.Rec.Anlog 100 Unit/Ml 3 Ml Pen) 26 unit SUBCUT BEDTIME [facility] Last Admin: 07/19/21 20:47 Dose: 26 unit Documented by: Ketorolac Tromethamine (Ketorolac 30 Mg/Ml Sdv) 30 mg IVPUSH Q12H PRN PRN Reason: Pain Stop: 07/22/21 15:09 Last Admin: 07/20/21 06:03 Dose: 30 mg Documented by: Lactobacillus Rhamnosus (Lactobacillus Rhamnosus Gg (Probiotic) Cap) 1 cap PO DAILY [facility] Last Admin: 07/20/21 09:03 Dose: 1 cap Documented by: Loperamide HCl (Loperamide 2 Mg Cap) 2 mg PO Q4H PRN PRN Reason: Diarrhea Last Admin: 07/20/21 07:29 Dose: 2 mg Documented by: Loratadine (Loratadine 10 Mg Tab) 10 mg PO DAILY [facility] Last Admin: 07/20/21 09:04 Dose: 10 mg Documented by: Losartan Potassium (Losartan 50 Mg Tab) 100 mg PO DAILY [facility] Last Admin: 07/20/21 08:59 Dose: 100 mg Documented by: Magnesium Oxide (Magnesium Oxide 500 Mg Tab) 250 mg PO DAILY [facility] Last Admin: 07/20/21 08:58 Dose: 250 mg Documented by: Multivitamins/Minerals (Multivitamins With Minerals/Iron/Folic Acid/Lycopene Tab) 1 tab PO DAILY [facility] Last Admin: 07/20/21 09:03 Dose: 1 tab Documented by: Liraglutide [Victoza 2-Javier] 18 Mg/3 Ml PenOwn Med 1.8 mg SQ DAILY [facility] Last Admin: 07/20/21 09:12 Dose: 1.8 mg Documented by: Netarsudil Mesylat/Latanoprost [ Rocklatan 0.02%-0. 005% Eye[employer] Med 1 drop EYEBOTH DAILY [facility] Last Admin: 07/20/21 09:10 Dose: 1 drop Documented by: Thyroid,Pork [[employer] Thyroid] 120 Mg TabletOwn Med 120 mg PO ACBREAKFAST [facility] Last Admin: 07/20/21 07:29 Dose: 120 mg Documented by: Thyroid,Pork [[employer] Thyroid] 30 Mg TabletOwn Med 30 mg PO ACBREAKFAST [facility] Last Admin: 07/20/21 07:29 Dose: 30 mg Documented by: Empagliflozin [ Jardiance] 10 Mg TabletOwn Med 10 mg PO DAILY@1800 [facility] Last Admin: 07/19/21 17:30 Dose: 10 mg Documented by: Oxybutynin Chloride (Oxybutynin 5 Mg Tab.Er) 20 mg PO BEDTIME [facility] Pantoprazole Sodium (Pantoprazole 40 Mg Tab.Cr) 40 mg PO ACBREAKFAST [facility] Last Admin: 07/20/21 07:29 Dose: 40 mg Documented by: Prednisone (Prednisone 10 Mg Tab) 10 mg PO QPM [facility] Last Admin: 07/19/21 20:53 Dose: 10 mg Documented by: Prednisone (Prednisone 20 Mg Tab) 20 mg PO QAM [facility] Last Admin: 07/20/21 09:04 Dose: 20 mg Documented by: Sodium Chloride (Sodium Chloride 0.9% 10 Ml Syringe) 10 ml FLUSH Q8HR PRN PRN Reason: keep vein open Last Admin: 07/20/21 00:06 Dose: 10 ml Documented by: Timolol Maleate (Timolol Maleate 0.5% Ophth Soln 5 Ml Bottle) 0 ml EYEBOTH BEDTIME [facility] Last Admin: 07/19/21 20:59 Dose: 1 drop Documented by: Tizanidine HCl (Tizanidine 4 Mg Tab) 6 mg PO BEDTIME PRN PRN Reason: Other Vancomycin HCl (Pharmacy To Dose - Vancomycin) 1 dose .XX ASDIRECTED [facility] Discontinued Medications Acetaminophen (Acetaminophen 325 Mg Tab) 650 mg PO Q6H PRN PRN Reason: Pain Allopurinol (Allopurinol 100 Mg Tab) 600 mg PO BEDTIME [facility] Last Admin: 07/17/21 21:33 Dose: 400 mg Documented by: Dextrose/Water (50% Dextrose In Water 50 Ml Syringe) 50 ml IVPUSH ASDIRECTED PRN PRN Reason: Hypoglycemia Glucagon (Glucagon,Human Recombinant 1 Mg Vial) 1 mg IM ASDIRECTED PRN PRN Reason: Hypoglycemia Vancomycin HCl 1 gm/ Sodium (Chloride) 250 mls @ 166.667 mls/hr IV Q12H [facility] Last Admin: 07/18/21 11:49 Dose: 166.667 mls/hr Documented by: Vancomycin HCl 0.75 gm/ Sodium (Chloride) 250 mls @ 250 mls/hr IV Q12H [facility] Vancomycin HCl 0.75 gm/ Sodium (Chloride) 250 mls @ 166.667 mls/hr IV Q12H [facility] Last Admin: 07/20/21 06:10 Dose: 166.667 mls/hr Documented by: Insulin Aspart (Insulin Aspart 100 Units/Ml 3 Ml Pen) 0 unit SUBCUT WITHMEALSANDBED [facility]; Protocol Last Admin: 07/17/21 13:11 Dose: Not Given Documented by: Insulin Glargine (Insulin Glargine,Hum.Rec.Anlog 100 Unit/Ml 3 Ml Pen) 26 unit SUBCUT DAILY [facility] Last Admin: 07/17/21 13:11 Dose: Not Given Documented by: Insulin Glargine (Insulin Glargine,Hum.Rec.Anlog 100 Unit/Ml 3 Ml Pen) 26 unit SUBCUT DAILY [facility] Last Admin: 07/17/21 13:11 Dose: Not Given Documented by: Empagliflozin [ Jardiance] 10 Mg TabletOwn Med 10 mg PO DAILY [facility] Last Admin: 07/17/21 16:05 Dose: 10 mg Documented by: Oxybutynin Chloride (Oxybutynin 5 Mg Tab.Er) 10 mg PO BEDTIME [facility] Last Admin: 07/19/21 20:51 Dose: 10 mg Documented by: - Exam General: Reports: Alert, Oriented, Cooperative, No Acute Distress Cardiovascular: Reports: Regular Rate, Regular Rhythm, No Murmurs Wound/Incisions: Reports: Other (Serosanguinous drainage to the right ulcer. Was probed today and tunnels to the bone.)
[2021-07-20] MEDS ORDERED: Oxybutynin 5 MG Tab.ER PO SCH (21:00)
== END 2021-07-20 11:55 | disposition swing bed (61) | DRG 638 ==
LOC: KA.ED 22:30 → KA.MS 23:41 → UNDOADMIN 23:49
PROVIDERS: ADMIT Internal Medicine; ATTEND Internal Medicine
DX: L03.115 Cellulitis of right lower limb (principal); M86.60 Other chronic osteomyelitis, unspecified site; E11.69 Type 2 diabetes mellitus with other specified complication; R53.1 Weakness; M86.9 Osteomyelitis, unspecified; K52.1 Toxic gastroenteritis and colitis; B35.1 Tinea unguium; M10.9 Gout, unspecified; I10 Essential (primary) hypertension; J45.909 Unspecified asthma, uncomplicated; G47.30 Sleep apnea, unspecified; T36.95XA Adverse effect of unspecified systemic antibiotic, initial encounter; Z66 Do not resuscitate; Z20.822 Contact with and (suspected) exposure to COVID-19; E11.22 Type 2 diabetes mellitus with diabetic chronic kidney disease; N28.9 Disorder of kidney and ureter, unspecified; E11.40 Type 2 diabetes mellitus with diabetic neuropathy, unspecified; E11.621 Type 2 diabetes mellitus with foot ulcer; L97.519 Non-pressure chronic ulcer of other part of right foot with unspecified severity; M06.9 Rheumatoid arthritis, unspecified; E03.9 Hypothyroidism, unspecified; N32.81 Overactive bladder; E78.00 Pure hypercholesterolemia, unspecified; K21.9 Gastro-esophageal reflux disease without esophagitis; H54.7 Unspecified visual loss; E11.42 Type 2 diabetes mellitus with diabetic polyneuropathy; M81.0 Age-related osteoporosis without current pathological fracture; H40.9 Unspecified glaucoma; K44.9 Diaphragmatic hernia without obstruction or gangrene; K58.9 Irritable bowel syndrome, unspecified; M79.7 Fibromyalgia; F32.A Depression, unspecified; Z79.52 Long term (current) use of systemic steroids; M19.90 Unspecified osteoarthritis, unspecified site; Z91.040 Latex allergy status; Z88.2 Allergy status to sulfonamides; Z79.899 Other long term (current) drug therapy; Z88.5 Allergy status to narcotic agent; Z91.09 Other allergy status, other than to drugs and biological substances; Z91.018 Allergy to other foods; Z88.8 Allergy status to other drugs, medicaments and biological substances; Z90.710 Acquired absence of both cervix and uterus; Z91.048 Other nonmedicinal substance allergy status; Z79.82 Long term (current) use of aspirin; Z79.890 Hormone replacement therapy; Z79.4 Long term (current) use of insulin
CPT/HCPCS: 36415; 71045; 73590-RT; 73620-RT; 73630-LT; 80048; 80053; 80202; 82947; 83605; 84484; 85025; 86140; 87040; 87070; 87075; 87205; 99223; 99285-25; A9270-GY; J1650; J1815-GY; J1885; J2543; J3370; J7050; J7512; U0002

== ENCOUNTER 2021-07-20 10:10 | Inpatient (IN) | payer MEDICAID ==
[2021-07-20] MEDS ORDERED: 50% Dextrose in Water 50 ML Syringe IVPUSH PRN ×2 (11:55→16:36)
[2021-07-20] MEDS ORDERED: Ibuprofen 400 MG Tab PO PRN (11:55)
[2021-07-20] MEDS ORDERED: Calcium Carbonate 500 MG Tab.Chew PO PRN (11:55)
[2021-07-20] MEDS ORDERED: diphenhydrAMINE 25 MG Cap PO PRN (11:55)
[2021-07-20] MEDS ORDERED: Sodium Chloride 0.9% 10 ML Syringe FLUSH PRN (11:55)
[2021-07-20] MEDS ORDERED: Glucagon,Human Recombinant 1 MG Vial IM PRN ×3 (11:55→16:36)
[2021-07-20] MEDS ORDERED: Ketorolac 30 MG/ML SDV IVPUSH PRN (11:55)
[2021-07-20] MEDS ORDERED: Carboxymethylcellulose Sodium 0.5% Ophth Soln 15 ML Bottle EYEBOTH PRN (11:55)
[2021-07-20] MEDS: Insulin Aspart 100 Units/ML 3 ML Pen SUBCUT SCH ×3 (12:00→21:26)
[2021-07-20] MEDS ORDERED: hydrALAZINE 20 MG/ML SDV IVPUSH PRN (12:58)
[2021-07-20] MEDS: Loperamide 2 MG Cap PO PRN (16:16)
[2021-07-20] MEDS ORDERED: Atropine/Diphenoxylate 0.025-2.5 MG Tab PO PRN (16:34)
[2021-07-20] MEDS ORDERED: Non-Formulary Medication 1 Each (Diphenhydramine [Benadryl] 25 MG Tablet) PO PRN (16:36)
[2021-07-20] MEDS ORDERED: CALCIUM CARBONATE 500 MG PO PRN (16:36)
[2021-07-20] MEDS ORDERED: Non-Formulary Medication 1 Each (Carboxymethylcellulose Sodium [Artificial Tears] 15 ML Dr EYEBOTH PRN (16:36)
[2021-07-20] MEDS ORDERED: Albuterol 8 GM Inhaler INH PRN (16:36)
[2021-07-20] MEDS ORDERED: Acetaminophen 325 MG Tab PO PRN (16:36)
[2021-07-20] MEDS ORDERED: tiZANidine 4 MG Tab PO PRN (16:36)
[2021-07-20] MEDS: Piperacillin/Tazobactam/Dext 3.375 GM in Premix Bag 1 BAG IV SCH ×2 (17:52→22:53)
[2021-07-20] MEDS ORDERED: Diclofenac Sodium 50 MG Tab.EC PO SCH (18:00)
[2021-07-20] MEDS ORDERED: Hydroxychloroquine 200 MG Tab PO SCH (18:00)
[2021-07-20] MEDS ORDERED: Insulin Aspart 100 Units/ML 3 ML Pen SUBCUT SCH (18:00)
[2021-07-20] MEDS: Diclofenac Sodium 50 MG Tab.EC PO SCH (18:43)
[2021-07-20] MEDS: Non-Formulary Medication 1 Each (Empagliflozin [Jardiance] 10 MG) PO SCH (18:43)
[2021-07-20] MEDS: Hydroxychloroquine 200 MG Tab PO SCH (18:44)
[2021-07-20] MEDS: Carvedilol 12.5 MG Tab PO SCH (20:50)
[2021-07-20] MEDS: Allopurinol 100 MG Tab PO SCH (20:51)
[2021-07-20] MEDS: predniSONE 10 MG Tab PO SCH (20:51)
[2021-07-20] MEDS: busPIRone 10 MG Tab PO SCH (20:51)
[2021-07-20] MEDS: Oxybutynin 5 MG Tab.ER PO SCH (20:51)
[2021-07-20] MEDS: Timolol Maleate 0.5% Ophth Soln 5 ML Bottle EYEBOTH SCH (20:52)
[2021-07-20] MEDS: Insulin Glargine,Hum.Rec.Anlog 100 UNIT/ML 3 ML Pen SUBCUT SCH (20:52)
[2021-07-20] MEDS: Clotrimazole 1% Crm 30 GM Tube TOP SCH (20:53)
[2021-07-20] MEDS ORDERED: predniSONE 10 MG Tab PO SCH (21:00)
[2021-07-20] MEDS ORDERED: Non-Formulary Medication 1 Each (Carvedilol [Carvedilol] 25 MG Tablet) PO SCH (21:00)
[2021-07-20] MEDS ORDERED: Non-Formulary Medication 1 Each (Timolol Maleate/Pf [Timolol Maleate 0.5% Eye Drop] 1 EACH OP SCH (21:00)
[2021-07-20] MEDS ORDERED: Allopurinol 100 MG Tab PO SCH (21:00)
[2021-07-20] MEDS ORDERED: Oxybutynin 5 MG Tab.ER PO SCH (21:00)
[2021-07-20] MEDS ORDERED: BUSPIRONE HCL 15 MG PO SCH (21:00)
[2021-07-20] MEDS ORDERED: Carvedilol 12.5 MG Tab PO SCH (21:00)
[2021-07-20] MEDS: Albuterol 8 GM Inhaler INH PRN (21:29)
[2021-07-21] MEDS: Piperacillin/Tazobactam/Dext 3.375 GM in Premix Bag 1 BAG IV SCH ×5 (05:06→23:21)
[2021-07-21] MEDS: Loperamide 2 MG Cap PO PRN ×2 (05:24→12:19)
[2021-07-21] MEDS: Sodium Chloride 0.9% 100 ML IV SCH ×2 (05:24→21:42)
[2021-07-21] MEDS: Pantoprazole 40 MG Tab.CR PO SCH (07:04)
[2021-07-21] MEDS: THYROID PORK 30 MG PO SCH (07:05)
[2021-07-21] MEDS: THYROID PORK 120 MG PO SCH (07:05)
[2021-07-21] MEDS ORDERED: THYROID PORK 120 MG PO SCH (07:30)
[2021-07-21] MEDS ORDERED: Pantoprazole 40 MG Tab.CR PO SCH (07:30)
[2021-07-21 07:56] LABS: ANION GAP 13.3 mmol/L (5-15); CHLORIDE,CL 106 mmol/L (98-107); SODIUM,NA 143 mmol/L (136-145)
[2021-07-21] MEDS ORDERED: Carvedilol 12.5 MG Tab PO SCH (09:00)
[2021-07-21] MEDS ORDERED: predniSONE 20 MG Tab PO SCH (09:00)
[2021-07-21] MEDS ORDERED: Loratadine 10 MG Tab PO SCH (09:00)
[2021-07-21] MEDS ORDERED: Non-Formulary Medication 1 Each (Amlodipine Besylate [Amlodipine Besylate] 10 MG Tablet) PO SCH (09:00)
[2021-07-21] MEDS ORDERED: Aspirin 325 MG Tab.EC PO SCH (09:00)
[2021-07-21] MEDS ORDERED: [UNRECOGNIZED DRUG - OTHER] PO SCH (09:00)
[2021-07-21] MEDS ORDERED: Non-Formulary Medication 1 Each (Empagliflozin [Jardiance] 10 MG Tablet) PO SCH (09:00)
[2021-07-21] MEDS ORDERED: Losartan 50 MG Tab PO SCH (09:00)
[2021-07-21] MEDS ORDERED: Non-Formulary Medication 1 Each (Insulin Glarg,Human.Rec.Analog 100 UNITS/ML Pen) SUBCUT SCH (09:00)
[2021-07-21] MEDS ORDERED: Non-Formulary Medication 1 Each (Liraglutide [Victoza 2-Pak] 18 MG/3 ML Pen) SQ SCH (09:00)
[2021-07-21] MEDS ORDERED: Non-Formulary Medication 1 Each (Calcium Carbonate/Vitamin D3 [Calcium 600 + Vit D Tablet] PO SCH (09:00)
[2021-07-21] MEDS ORDERED: Fish Oil/Omega-3 Fatty Acids 1 Gm Cap PO SCH (09:00)
[2021-07-21] MEDS ORDERED: Non-Formulary Medication 1 Each (Netarsudil Mesylat/Latanoprost [Rocklatan 0.02%-0.005% Ey OP SCH (09:00)
[2021-07-21] MEDS ORDERED: Non-Formulary Medication 1 Each (Ascorbic Acid [Vitamin C] 1,000 MG Tablet) PO SCH (09:00)
[2021-07-21] MEDS ORDERED: Non-Formulary Medication 1 Each (Magnesium [Magnesium] 250 MG Tablet) PO SCH (09:00)
[2021-07-21] MEDS: Hydroxychloroquine 200 MG Tab PO SCH ×2 (09:02→19:08)
[2021-07-21] MEDS: Calcium Citrate/Vitamin D3 315 MG-250 Unit Tab PO SCH (09:02)
[2021-07-21] MEDS: Diclofenac Sodium 50 MG Tab.EC PO SCH ×2 (09:02→18:14)
[2021-07-21] MEDS: Multivitamins with Minerals/Iron/Folic Acid/Lycopene Tab PO SCH (09:03)
[2021-07-21] MEDS: Lactobacillus Rhamnosus GG (Probiotic) Cap PO SCH (09:03)
[2021-07-21] MEDS: Loratadine 10 MG Tab PO SCH (09:03)
[2021-07-21] MEDS: Aspirin 325 MG Tab.EC PO SCH (09:04)
[2021-07-21] MEDS: Fish Oil/Omega-3 Fatty Acids 1 Gm Cap PO SCH (09:04)
[2021-07-21] MEDS: Chondroitin/Glucosamine Cap PO SCH (09:04)
[2021-07-21] MEDS: Carvedilol 12.5 MG Tab PO SCH ×2 (09:17→21:26)
[2021-07-21] MEDS: amLODIPine 5 MG Tab PO SCH (09:18)
[2021-07-21] MEDS: predniSONE 20 MG Tab PO SCH (09:18)
[2021-07-21] MEDS: Ascorbic Acid 500 MG Tab PO SCH (09:18)
[2021-07-21] MEDS: Losartan 50 MG Tab PO SCH (09:19)
[2021-07-21] MEDS: Magnesium Oxide 500 MG Tab PO SCH (09:21)
[2021-07-21] MEDS: Enoxaparin 40 MG/0.4 ML Syringe SUBCUT SCH (09:22)
[2021-07-21] MEDS: Non-Formulary Medication 1 Each (Liraglutide [Victoza 2-Pak] 1.8 MG) SQ SCH (09:26)
[2021-07-21] MEDS: Non-Formulary Medication 1 Each (Netarsudil Mesylat/Latanoprost [Rocklatan 0.02%-0.005% Ey EYEBOTH SCH (09:28)
[2021-07-21] MEDS: Insulin Aspart 100 Units/ML 3 ML Pen SUBCUT SCH ×4 (09:29→21:39)
[2021-07-21] MEDS: Clotrimazole 1% Crm 30 GM Tube TOP SCH ×2 (10:30→21:33)
--- NOTE | 2021-07-21 12:17 | CR ---
[id number] RAD/RAD Chest PA or AP 1V EXAM: RAD Chest PA or AP 1V INDICATION: OSTEOMYELITIS. COMPARISON: July 16, 2021. DISCUSSION: There is a right upper extremity PICC line with tip overlying the lower portion the superior vena cava. Cardiomediastinal silhouette is normal in size and contour. No infiltrate, effusion, pneumothorax, or edema. Low lung volumes associated vascular crowding. IMPRESSION: Right upper extremity PICC with tip overlying the lower portion the superior vena cava. Nick Kelley DO 07/21/21 0528 Thank you for allowing us to participate in the care of your patient.
[2021-07-21] MEDS: Non-Formulary Medication 1 Each (Empagliflozin [Jardiance] 10 MG) PO SCH (18:14)
[2021-07-21] MEDS: Fluconazole 100 MG Tab PO SCH (18:14)
[2021-07-21] MEDS: Albuterol 8 GM Inhaler INH PRN (20:07)
[2021-07-21] MEDS: Oxybutynin 5 MG Tab.ER PO SCH (21:30)
[2021-07-21] MEDS: predniSONE 10 MG Tab PO SCH (21:31)
[2021-07-21] MEDS: Allopurinol 100 MG Tab PO SCH (21:31)
[2021-07-21] MEDS: busPIRone 10 MG Tab PO SCH (21:31)
[2021-07-21] MEDS: Timolol Maleate 0.5% Ophth Soln 5 ML Bottle EYEBOTH SCH (21:36)
[2021-07-21] MEDS: Insulin Glargine,Hum.Rec.Anlog 100 UNIT/ML 3 ML Pen SUBCUT SCH (21:40)
[2021-07-22] MEDS: Piperacillin/Tazobactam/Dext 3.375 GM in Premix Bag 1 BAG IV SCH ×4 (06:06→23:40)
[2021-07-22] MEDS: THYROID PORK 30 MG PO SCH ×2 (06:06→06:31)
[2021-07-22] MEDS: Pantoprazole 40 MG Tab.CR PO SCH ×2 (06:06→06:31)
[2021-07-22] MEDS: THYROID PORK 120 MG PO SCH ×2 (06:06→06:31)
[2021-07-22] MEDS: Sodium Chloride 0.9% 100 ML IV SCH ×2 (07:17→18:37)
[2021-07-22 08:12] LABS: ANION GAP 12.4 mmol/L (5-15); CHLORIDE,CL 107 mmol/L (98-107); SODIUM,NA 143 mmol/L (136-145)
[2021-07-22] MEDS: Insulin Aspart 100 Units/ML 3 ML Pen SUBCUT SCH ×4 (08:26→21:44)
[2021-07-22] MEDS: Hydroxychloroquine 200 MG Tab PO SCH ×2 (08:50→18:37)
[2021-07-22] MEDS: Magnesium Oxide 500 MG Tab PO SCH (08:51)
[2021-07-22] MEDS: Calcium Citrate/Vitamin D3 315 MG-250 Unit Tab PO SCH (08:51)
[2021-07-22] MEDS: Chondroitin/Glucosamine Cap PO SCH (08:51)
[2021-07-22] MEDS: Losartan 50 MG Tab PO SCH (08:51)
[2021-07-22] MEDS: Lactobacillus Rhamnosus GG (Probiotic) Cap PO SCH (08:51)
[2021-07-22] MEDS: predniSONE 20 MG Tab PO SCH (08:51)
[2021-07-22] MEDS: Diclofenac Sodium 50 MG Tab.EC PO SCH ×2 (08:51→18:37)
[2021-07-22] MEDS: Fish Oil/Omega-3 Fatty Acids 1 Gm Cap PO SCH (08:51)
[2021-07-22] MEDS: Multivitamins with Minerals/Iron/Folic Acid/Lycopene Tab PO SCH (08:51)
[2021-07-22] MEDS: Ascorbic Acid 500 MG Tab PO SCH (08:52)
[2021-07-22] MEDS: amLODIPine 5 MG Tab PO SCH (08:52)
[2021-07-22] MEDS: Carvedilol 12.5 MG Tab PO SCH ×2 (08:52→20:16)
[2021-07-22] MEDS: Loratadine 10 MG Tab PO SCH (08:52)
[2021-07-22] MEDS: Aspirin 325 MG Tab.EC PO SCH (08:53)
[2021-07-22] MEDS: Non-Formulary Medication 1 Each (Netarsudil Mesylat/Latanoprost [Rocklatan 0.02%-0.005% Ey EYEBOTH SCH (09:11)
[2021-07-22] MEDS: Enoxaparin 40 MG/0.4 ML Syringe SUBCUT SCH (09:11)
[2021-07-22] MEDS: Non-Formulary Medication 1 Each (Liraglutide [Victoza 2-Pak] 1.8 MG) SQ SCH (09:11)
[2021-07-22] MEDS: Clotrimazole 1% Crm 30 GM Tube TOP SCH ×2 (09:14→20:16)
[2021-07-22] MEDS: Sodium Chloride 0.9% 10 ML Syringe FLUSH PRN (11:35)
[2021-07-22] MEDS ORDERED: Ketorolac 30 MG/ML SDV IVPUSH ONE (16:15)
[2021-07-22] MEDS: Fluconazole 100 MG Tab PO SCH (18:38)
[2021-07-22] MEDS: Acetaminophen 325 MG Tab PO PRN (18:38)
[2021-07-22] MEDS: Non-Formulary Medication 1 Each (Empagliflozin [Jardiance] 10 MG) PO SCH (18:39)
--- NOTE | 2021-07-22 19:18 | MR ---
[id number] MR/MRI Foot Right WWO IV EXAM: MRI Foot Right WWO IV INDICATION: OSTEOMYELITIS, CONCERN FOR NECROTIZING FASCIITIS. COMPARISON: Radiographs of July 16, 2021 and tibia-fibula MRI same date. DISCUSSION: Sequela of septic arthritis/osteomyelitis involving the tibiotalar joint, hindfoot, and midfoot with associated collapse of the talus and partial collapse of the calcaneus and fluid and gas within the distal tibia, distal fibula, calcaneus, and navicular and cuboid. There is an open skin wound communicating with the medial hindfoot. The extent of osseous involvement in the tibia and fibula is not included in the [id number] of this study and there is fluid and gas extending into the subcutaneous tissues of the distal leg which will be further detailed on a dedicated tibia/fibula study. There is marked fatty atrophy of the intrinsic foot muscles. There is infiltrating edema in the subcutaneous tissues of the foot most pronounced along the medial hindfoot. No drainable fluid collection is identified in the foot. Fluid in the leg will be detailed separately. There is no evident residual ankle ligaments. The Achilles tendon is partially imaged, but appears intact. The extensor tendons appear intact. The flexor tendons are not clearly defined. Plantar fascia is normal in appearance. IMPRESSION: 1. Septic arthritis/osteomyelitis involving the talus, calcaneus, distal tibia, distal fibula, navicular, and cuboid. There is associated gas and fluid within the osseous structures and collapse of the talus. Leonidas Chung MD 07/22/211917 Thank you for allowing us to participate in the care of your patient.
--- NOTE | 2021-07-22 19:27 | MR ---
[id number] MR/MRI Tibia Fibula Right WWO IV EXAM: MRI Tibia Fibula Right WWO IV INDICATION: Osteomyelitis, concern for necrotizing fasciitis, and open sore on heel. COMPARISON: Radiographs of July 17, 2021. DISCUSSION: There is septic arthritis and osteomyelitis involving the hindfoot and midfoot as detailed on the separate foot study. Osteomyelitis with intraosseous abscess involving the distalmost 12 cm of the tibia and osteomyelitis of the distalmost 4 cm of the fibula. The proximal most aspect of the fibula and tibia are not included in the [id number] of this study, but there is no more proximal involvement identified. Diffuse fatty atrophy of the leg muscles. Infiltrating subcutaneous edema and skin thickening throughout the leg compatible with cellulitis. There is fluid and gas at the interface of the subcutaneous tissues with the underlying muscle compartments of the anterior and lateral leg with a maximum thickness of about 6 mm. This extends to the level of the proximal leg with a trace amount of fluid extending beyond the proximal margin of the examination. IMPRESSION: 1. Osteomyelitis of the distalmost tibia and fibula as detailed with intraosseous abscess in the distal tibia extending about 12 cm in length. 2. Gas and fluid compatible with phlegmon or abscess of the junction of the subcutaneous tissues with the underlying muscle compartment of the leg extending from the ankle to level of the proximal to mid leg. Fluid collections extend a significant length but are at most about 6 mm in thickness. Leonidas Chung MD 07/22/211924 Thank you for allowing us to participate in the care of your patient.
[2021-07-22] MEDS: Insulin Glargine,Hum.Rec.Anlog 100 UNIT/ML 3 ML Pen SUBCUT SCH (20:06)
[2021-07-22] MEDS: Timolol Maleate 0.5% Ophth Soln 5 ML Bottle EYEBOTH SCH (20:06)
[2021-07-22] MEDS: Oxybutynin 5 MG Tab.ER PO SCH (20:16)
[2021-07-22] MEDS: predniSONE 10 MG Tab PO SCH (20:16)
[2021-07-22] MEDS: busPIRone 10 MG Tab PO SCH (20:16)
[2021-07-22] MEDS: Allopurinol 100 MG Tab PO SCH (20:16)
[2021-07-23] MEDS: Piperacillin/Tazobactam/Dext 3.375 GM in Premix Bag 1 BAG IV SCH ×2 (05:31→10:53)
[2021-07-23] MEDS: THYROID PORK 30 MG PO SCH (07:36)
[2021-07-23] MEDS: Pantoprazole 40 MG Tab.CR PO SCH (07:36)
[2021-07-23] MEDS: THYROID PORK 120 MG PO SCH (07:36)
[2021-07-23] MEDS: Insulin Aspart 100 Units/ML 3 ML Pen SUBCUT SCH ×5 (07:49→21:00)
[2021-07-23] MEDS ORDERED: Gadobenate Dimeglumine 529 MG/ML 10 ML SDV IVPUSH ONE (08:18)
[2021-07-23] MEDS: Enoxaparin 40 MG/0.4 ML Syringe SUBCUT SCH (08:35)
[2021-07-23] MEDS: Fish Oil/Omega-3 Fatty Acids 1 Gm Cap PO SCH (08:36)
[2021-07-23] MEDS: Carvedilol 12.5 MG Tab PO SCH ×2 (08:36→20:59)
[2021-07-23] MEDS: predniSONE 20 MG Tab PO SCH (08:36)
[2021-07-23] MEDS: Ascorbic Acid 500 MG Tab PO SCH (08:36)
[2021-07-23] MEDS: Magnesium Oxide 500 MG Tab PO SCH (08:36)
[2021-07-23] MEDS: Aspirin 325 MG Tab.EC PO SCH (08:37)
[2021-07-23] MEDS: Chondroitin/Glucosamine Cap PO SCH (08:37)
[2021-07-23] MEDS: amLODIPine 5 MG Tab PO SCH (08:37)
[2021-07-23] MEDS: Multivitamins with Minerals/Iron/Folic Acid/Lycopene Tab PO SCH (08:37)
[2021-07-23] MEDS: Loratadine 10 MG Tab PO SCH (08:37)
[2021-07-23] MEDS: Lactobacillus Rhamnosus GG (Probiotic) Cap PO SCH (08:37)
[2021-07-23] MEDS: Hydroxychloroquine 200 MG Tab PO SCH ×2 (08:37→17:27)
[2021-07-23] MEDS: Calcium Citrate/Vitamin D3 315 MG-250 Unit Tab PO SCH (08:37)
[2021-07-23] MEDS: Losartan 50 MG Tab PO SCH (08:37)
[2021-07-23] MEDS: Diclofenac Sodium 50 MG Tab.EC PO SCH ×2 (08:37→17:27)
[2021-07-23] MEDS: Clotrimazole 1% Crm 30 GM Tube TOP SCH ×2 (08:40→20:48)
[2021-07-23] MEDS: Non-Formulary Medication 1 Each (Netarsudil Mesylat/Latanoprost [Rocklatan 0.02%-0.005% Ey EYEBOTH SCH ×3 (08:40→22:11)
[2021-07-23] MEDS: Non-Formulary Medication 1 Each (Liraglutide [Victoza 2-Pak] 1.8 MG) SQ SCH (08:41)
[2021-07-23 09:16] LABS: ANION GAP 14.2 mmol/L (5-15); CHLORIDE,CL 106 mmol/L (98-107); SODIUM,NA 142 mmol/L (136-145)
[2021-07-23] MEDS ORDERED: hydrALAZINE 10 MG Tab PO SCH (09:45)
[2021-07-23] MEDS: Sodium Chloride 0.9% 100 ML IV SCH (10:52)
--- NOTE | 2021-07-23 12:17 | PCM.PN ---
- General Info Date of Service: 07/23/21 Admission Dx/Problem (Free Text): Osteomyelitis of the foot and distal Tib/Fib with gas formation and fluid collection with intraosseus abscess. - Review of Systems Systems Review Comment:: Acute IP admission 07/16 - 07/20 Swingbed admission 07/20 - present Slime is seen today on swingbed rounds. I wanted to discuss her MRI results with her which showed the following: Osteomyelitis of the distal tib fib with intraosseous abscess in the distal tibia, 12 cm in length. Gas and fluid at the junction of the subcutaneous tissues with underlying muscle compartment of the leg extending from the ankle to the level of the proximal mid leg. Sept arthritis/osteomyelitis of the talus, calcaneous, distal tib fib, navicular and cuboid with associated gas and fluid within the osseous structures and collpase of the talus. 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 I have explained to her that the IV antibiotics are only a temporary measure until definitive treatment can take place. She makes many statements she has no quality of life and gestures by putting a finger in her mouth like a gun and pulling the trigger. She has been making several statements like this but has no plan to act on them. She has virtually no help at home, she does not drive, she is confined to her apartment in her current state. She does not want to go to the [place] to live permanently but seems to bel ieve that if she has an amputation that is her only option. When I talk about the fact that amputees live very full lives and that her life would likely be improved because she would feel so much better if she was not chronically infected she states "how could that even be? I don't have the upper arm strength to be in a wheelchair on my own". When I mention the option of doing nothing, stopping all antibiotics and gone home with hospice she states "what, so I can have a slow painful ?" She continues to decline going on an antidepressant. She voice frustration with the amount of help she is requiring in the hospital and feels like she is a burden to the nursing staff. - Patient Data Vitals - Most Recent: Last Vital Signs Temp 96.5 F L 07/23/21 08:34 Pulse 86 07/23/21 08:36 Resp 20 07/23/21 08:34 BP 158/97 H 07/23/21 10:36 Pulse Ox 95 07/23/21 08:34 Weight - Most Recent: 199 lb 11.2 oz I&O - Last 24 Hours: Intake & Output 07/22/21 07/23/21 07/23/21 22:59 06:59 14:59 Intake Total 730 420 Balance 730 420 Lab Results Last 24 Hours: Laboratory Results - last 24 hr 07/23/21 07/23/21 07/23/21 Range/Units 07:47 08:50 08:50 WBC 4.73 L (5.00-10.00) 10^3/uL RBC 3.65 L (3.80-5.50) 10^6/uL Hgb 10.8 L (12.0-16.0) g/dL Hct 34.2 L (37.0-47.0) % MCV 93.7 H (82.0-92.0) fL MCH 29.6 (27.0-31.0) pg MCHC 31.6 L (32.0-36.0) g/dL RDW 16.0 H (11.5-14.5) % Plt Count 261 (150-400) 10^3/uL MPV 9.4 (7.4-10.4) fL Immature Gran % (Auto) 0.4 (0.0-5.0) % Neut % (Auto) 61.8 (50.0-70.0) % Lymph % (Auto) 29.0 (20.0-40.0) % Grady % (Auto) 8.0 (2.0-8.0) % Eos % (Auto) 0.6 L (1.0-3.0) % Baso % (Auto) 0.2 (0.0-1.0) % Neut # (Auto) 2.92 (2.50-7.00) 10^3/uL Lymph # (Auto) 1.37 (1.00-4.00) 10^3/uL Grady # (Auto) 0.38 (0.10-0.80) 10^3/uL Eos # (Auto) 0.03 L (0.10-0.30) 10^3/uL Baso # (Auto) 0.01 (0.00-0.10) 10^3/uL Immature Gran # (Auto) 0.02 (0.00-0.50) 10^3/uL Sodium 142 (136-145) mmol/L Potassium 4.1 (3.5-5.1) mmol/L Chloride 106 (98-107) mmol/L Carbon Dioxide 25.9 (21.0-32.0) mmol/L Anion Gap 14.2 (5-15) mmol/L BUN 28 H (7-18) mg/dL Creatinine 0.63 (0.51-1.17) mg/dL Est Cr Clr Drug Dosing 77.57 mL/min Estimated GFR (MDRD) > 60 mL/min Glucose 156 H (70-140) mg/dL POC Glucose 116 (70-140) mg/dL Calcium 8.7 (8.7-10.3) mg/dL Med Orders - Current: Current Medications Acetaminophen (Acetaminophen 325 Mg Tab) 650 mg PO Q6H PRN PRN Reason: Pain Last Admin: 07/22/21 18:38 Dose: 650 mg Documented by: Albuterol (Albuterol 8 Gm Inhaler) 1 gm INH Q4H PRN PRN Reason: Shortness of Breath Last Admin: 07/21/21 20:07 Dose: 2 puff Documented by: Allopurinol (Allopurinol 100 Mg Tab) 400 mg PO BEDTIME [facility] Last Admin: 07/22/21 20:16 Dose: 400 mg Documented by: Amlodipine Besylate (Amlodipine 5 Mg Tab) 10 mg PO DAILY [facility] Last Admin: 07/23/21 08:37 Dose: 10 mg Documented by: Artificial Tears (Carboxymethylcellulose Sodium 0.5% Ophth Soln 15 Ml Bottle) 1 ml EYEBOTH Q4H PRN PRN Reason: Dry Eyes Ascorbic Acid (Ascorbic Acid 500 Mg Tab) 1,000 mg PO DAILY [facility] Last Admin: 07/23/21 08:36 Dose: 1,000 mg Documented by: Aspirin (Aspirin 325 Mg Tab.Ec) 325 mg PO DAILY [facility] Last Admin: 07/23/21 08:37 Dose: 325 mg Documented by: Buspirone HCl (Buspirone 10 Mg Tab) 10 mg PO BEDTIME [facility] Last Admin: 07/22/21 20:16 Dose: 10 mg Documented by: Calcium Carbonate/Glycine (Calcium Carbonate 500 Mg Tab.Chew) 1,000 mg PO DAILY PRN PRN Reason: Heartburn Calcium Citrate (Calcium Citrate/Vitamin D3 315 Mg-250 Unit Tab) 2 tab PO DAILY [facility] Last Admin: 07/23/21 08:37 Dose: 2 tab Documented by: Carvedilol (Carvedilol 12.5 Mg Tab) 25 mg PO BID [facility] Last Admin: 07/23/21 08:36 Dose: 25 mg Documented by: Clotrimazole (Clotrimazole 1% Crm 30 Gm Tube) 1 gm TOP BID [facility] Last Admin: 07/23/21 08:40 Dose: 1 applic Documented by: Dextrose/Water (50% Dextrose In Water 50 Ml Syringe) 50 ml IVPUSH ASDIRECTED PRN PRN Reason: Hypoglycemia Diclofenac Sodium (Diclofenac Sodium 50 Mg Tab.Ec) 50 mg PO BIDMEALS [facility] Last Admin: 07/23/21 08:37 Dose: 50 mg Documented by: Diphenhydramine HCl (Diphenhydramine 25 Mg Cap) 25 mg PO Q4H PRN PRN Reason: Other Diphenoxylate HCl/Atropine (Atropine/Diphenoxylate 0.025-2.5 Mg Tab) 1 tab PO Q6H PRN PRN Reason: Diarrhea Enoxaparin Sodium (Enoxaparin 40 Mg/0.4 Ml Syringe) 40 mg SUBCUT DAILY [facility] Last Admin: 07/23/21 08:35 Dose: 40 mg Documented by: Fish Oil (Fish Oil/Tolar-3 Fatty Acids 1 Gm Cap) 1 gm PO DAILY [facility] Last Admin: 07/23/21 08:36 Dose: 1 gm Documented by: Fluconazole (Fluconazole 100 Mg Tab) 200 mg PO DAILY@1800 [facility] Last Admin: 07/22/21 18:38 Dose: 200 mg Documented by: Glucagon (Glucagon,Human Recombinant 1 Mg Vial) 1 mg IM ASDIRECTED PRN PRN Reason: Hypoglycemia Glucosamine/Chondroitin (Chondroitin/Glucosamine Cap) 1 cap PO DAILY [facility] Last Admin: 07/23/21 08:37 Dose: 1 cap Documented by: Hydralazine HCl (Hydralazine 20 Mg/Ml Sdv) 10 mg IVPUSH Q8H PRN PRN Reason: Hypertension Hydralazine HCl (Hydralazine 10 Mg Tab) 10 mg PO Q8H [facility] Last Admin: 07/23/21 10:36 Dose: 10 mg Documented by: Hydroxychloroquine Sulfate (Hydroxychloroquine 200 Mg Tab) 200 mg PO BIDMEALS [facility] Last Admin: 07/23/21 08:37 Dose: 200 mg Documented by: Piperacillin/Tazobactam/ (Dextrose 3.375 gm/ Premix) 50 mls @ 100 mls/hr IV Q6H [facility] Last Admin: 07/23/21 10:53 Dose: 100 mls/hr Documented by: Sodium Chloride (Normal Saline) 100 mls @ 125 mls/hr IV ASDIRECTED [facility] Last Admin: 07/23/21 10:52 Dose: 125 mls/hr Documented by: Vancomycin HCl 0.75 gm/ Sodium (Chloride) 250 mls @ 166.667 mls/hr IV Q12H [facility] Last Admin: 07/23/21 06:10 Dose: 166.667 mls/hr Documented by: Ibuprofen (Ibuprofen 400 Mg Tab) 400 mg PO Q4H PRN PRN Reason: Pain Insulin Aspart (Insulin Aspart 100 Units/Ml 3 Ml Pen) 2 - 10 unit SUBCUT WITHMEALSANDBED [facility]; Protocol Last Admin: 07/23/21 11:53 Dose: Not Given Documented by: Insulin Glargine (Insulin Glargine,Hum.Rec.Anlog 100 Unit/Ml 3 Ml Pen) 26 unit SUBCUT BEDTIME [facility] Last Admin: 07/22/21 20:06 Dose: 26 unit Documented by: Lactobacillus Rhamnosus (Lactobacillus Rhamnosus Gg (Probiotic) Cap) 1 cap PO DAILY [facility] Last Admin: 07/23/21 08:37 Dose: 1 cap Documented by: Loperamide HCl (Loperamide 2 Mg Cap) 2 mg PO Q4H PRN PRN Reason: Diarrhea Last Admin: 07/21/21 12:19 Dose: 2 mg Documented by: Loratadine (Loratadine 10 Mg Tab) 10 mg PO DAILY [facility] Last Admin: 07/23/21 08:37 Dose: 10 mg Documented by: Losartan Potassium (Losartan 50 Mg Tab) 100 mg PO DAILY [facility] Last Admin: 07/23/21 08:37 Dose: 100 mg Documented by: Magnesium Oxide (Magnesium Oxide 500 Mg Tab) 250 mg PO DAILY [facility] Last Admin: 07/23/21 08:36 Dose: 250 mg Documented by: Multivitamins/Minerals (Multivitamins With Minerals/Iron/Folic Acid/Lycopene Tab) 1 tab PO DAILY [facility] Last Admin: 07/23/21 08:37 Dose: 1 tab Documented by: Non-Formulary Medication (Liraglutide [Victoza 2-Javier]) 1.8 mg SQ DAILY [facility] Last Admin: 07/23/21 08:41 Dose: 1.8 mg Documented by: Non-Formulary Medication (Netarsudil Mesylat/Latanoprost [Rocklatan 0.02%-0.005% Eye Drp]) 1 drop EYEBOTH DAILY [facility] Last Admin: 07/23/21 08:40 Dose: 1 drop Documented by: Non-Formulary Medication (Thyroid,Pork [[place] Thyroid]) 120 mg PO ACBREAKFAST [facility] Last Admin: 07/23/21 07:36 Dose: 120 mg Documented by: Non-Formulary Medication (Thyroid,Pork [[place] Thyroid]) 30 mg PO ACBREAKFAST [facility] Last Admin: 07/23/21 07:36 Dose: 30 mg Documented by: Non-Formulary Medication (Empagliflozin [Jardiance]) 10 mg PO DAILY@1800 [facility] Last Admin: 07/22/21 18:39 Dose: 10 mg Documented by: Oxybutynin Chloride (Oxybutynin 5 Mg Tab.Er) 20 mg PO BEDTIME [facility] Last Admin: 07/22/21 20:16 Dose: 20 mg Documented by: Pantoprazole Sodium (Pantoprazole 40 Mg Tab.Cr) 40 mg PO ACBREAKFAST [facility] Last Admin: 07/23/21 07:36 Dose: 40 mg Documented by: Prednisone (Prednisone 10 Mg Tab) 10 mg PO QPM [facility] Last Admin: 07/22/21 20:16 Dose: 10 mg Documented by: Prednisone (Prednisone 20 Mg Tab) 20 mg PO QAM [facility] Last Admin: 07/23/21 08:36 Dose: 20 mg Documented by: Sodium Chloride (Sodium Chloride 0.9% 10 Ml Syringe) 10 ml FLUSH Q8HR PRN PRN Reason: keep vein open Last Admin: 07/22/21 11:35 Dose: 10 ml Documented by: Timolol Maleate (Timolol Maleate 0.5% Ophth Soln 5 Ml Bottle) 1 ml EYEBOTH BEDTIME [facility] Last Admin: 07/22/21 20:06 Dose: 2 drop Documented by: Tizanidine HCl (Tizanidine 4 Mg Tab) 6 mg PO BEDTIME PRN PRN Reason: Other Vancomycin HCl (Pharmacy To Dose - Vancomycin) 1 dose .XX ASDIRECTED [facility] Discontinued Medications Carvedilol (Carvedilol 12.5 Mg Tab) 12.5 mg PO QPM [facility] Carvedilol (Carvedilol 12.5 Mg Tab) 25 mg PO QAM [facility] Gadobenate Dimeglumine (Gadobenate Dimeglumine 529 Mg/Ml 10 Ml Sdv) 10 ml IVPUSH ONETIME ONE Stop: 07/23/21 08:19 Last Admin: 07/22/21 16:30 Dose: 10 ml Documented by: Ketorolac Tromethamine (Ketorolac 30 Mg/Ml Sdv) 30 mg IVPUSH Q12H PRN PRN Reason: Pain Stop: 07/22/21 15:09 Last Admin: 07/21/21 12:20 Dose: 30 mg Documented by: Ketorolac Tromethamine (Ketorolac 30 Mg/Ml Sdv) 30 mg IVPUSH ONETIME ONE Stop: 07/22/21 16:16 Last Admin: 07/22/21 21:49 Dose: Not Given Documented by: - Exam Central Line Total Time: 1Days 21Hours General: Alert, Oriented, Cooperative, No Acute Distress Lungs: Clear to Auscultation, Normal Respiratory Effort Cardiovascular: Regular Rate, Regular Rhythm - Patient Data Lab Results Last 24 hrs: Laboratory Results - last 24 hr 07/23/21 07/23/21 07/23/21 Range/Units 07:47 08:50 08:50 WBC 4.73 L (5.00-10.00) 10^3/uL RBC 3.65 L (3.80-5.50) 10^6/uL Hgb 10.8 L (12.0-16.0) g/dL Hct 34.2 L (37.0-47.0) % MCV 93.7 H (82.0-92.0) fL MCH 29.6 (27.0-31.0) pg MCHC 31.6 L (32.0-36.0) g/dL RDW 16.0 H (11.5-14.5) % Plt Count 261 (150-400) 10^3/uL MPV 9.4 (7.4-10.4) fL Immature Gran % (Auto) 0.4 (0.0-5.0) % Neut % (Auto) 61.8 (50.0-70.0) % Lymph % (Auto) 29.0 (20.0-40.0) % Grady % (Auto) 8.0 (2.0-8.0) % Eos % (Auto) 0.6 L (1.0-3.0) % Baso % (Auto) 0.2 (0.0-1.0) % Neut # (Auto) 2.92 (2.50-7.00) 10^3/uL Lymph # (Auto) 1.37 (1.00-4.00) 10^3/uL Grady # (Auto) 0.38 (0.10-0.80) 10^3/uL Eos # (Auto) 0.03 L (0.10-0.30) 10^3/uL Baso # (Auto) 0.01 (0.00-0.10) 10^3/uL Immature Gran # (Auto) 0.02 (0.00-0.50) 10^3/uL Sodium 142 (136-145) mmol/L Potassium 4.1 (3.5-5.1) mmol/L Chloride 106 (98-107) mmol/L Carbon Dioxide 25.9 (21.0-32.0) mmol/L Anion Gap 14.2 (5-15) mmol/L BUN 28 H (7-18) mg/dL Creatinine 0.63 (0.51-1.17) mg/dL Est Cr Clr Drug Dosing 77.57 mL/min Estimated GFR (MDRD) > 60 mL/min Glucose 156 H (70-140) mg/dL POC Glucose 116 (70-140) mg/dL Calcium 8.7 (8.7-10.3) mg/dL Result Diagrams: 07/23/21 08:50 07/23/21 08:50 Sepsis Event Note - Evaluation Sepsis Screening Result: No Definite Risk - Focused Exam Vital Signs: Vital Signs Temp Pulse Pulse Resp BP BP Pulse Ox 07/23/21 10:36 158/97 H 07/23/21 08:37 177/99 H 07/23/21 08:36 86 177/99 H 07/23/21 08:34 96.5 F L 86 20 177/99 H 95 - Problem List Review Problem List Initiated/Reviewed/Updated: Yes - My Orders Last 24 Hours: My Active Orders 07/23/21 09:45 hydrALAZINE [Apresoline] 10 mg PO Q8H 07/23/21 17:30 VANCOMYCIN TROUGH [CHEM] Routine 07/28/21 11:00 Communication Order [RC] DAILY - Assessment Assessment:: Admission Diagnoses: Infected diabetic foot ulcer with osteomyelitis of the talus, calcaneous, distal tib/fib, navicular and cuboid bones with intraosseous abscess in the distal tib/fib. The open ulcer tunnels to the bone - Vancomycin pharm to dose and Zosyn q 8 hours - Dressing to wound - Cultures to date only with yeast. Started on fluconazole 200 mg PO daily on 07/20 although would benefit form bone culture - MRI of foot and tib/fib on 07/22 shows the following --Osteomyelitis of the distal tib fib with intraosseous abscess in the distal tibia, 12 cm in length. Gas and fluid at the junction of the subc utaneous tissues with underlying muscle compartment of the leg extending from the ankle to the level of the proximal mid leg. Sept arthritis/osteomyelitis of the talus, calcaneous, distal tib fib, navicular and cuboid with associated gas and fluid within the osseous structures and collpase of the talus. - Consulted with podiatry who advises amputation, have reached out to podiatry on 07/23 for review of MRI and further discussion of options. Slime is very worried about how she will manage with an amputation. She has full mental capacity, discussed that IV antibiotics are NOT going to allow full recovery from this and amputation is likely her only option. She would benefit from podiatry and multidisciplinary approach of a larger facility to help her manage her expectations of life with an amputation. Debility secondary to above - PT consultation, not much PT is able to help with - Discussed that without help in the home is it highly unlikely she could go home with home infusions Secondary Diagnoses: Diarrhea secondary to antibiotic use - Imodium 2 mg PO q 4 hours PRN diarrhea, has not been helping, will start lomotil 07/20 - She is already on a probiotic Onychomycosis: - Clotrimazole topically to the affected nails BID PRN per patient preference Gout - Allopurinol 600 mg PO qhs DM - Lantus 26 units subcut daily - SSI per medium dose protocol - Victoza 1.8 mg subcut daily (on hold due to not on formulary) - Jardiance 10 mg PO daily - Accuchecks HTN - Amlodipine 10 mg PO daily - Losartan 100 mg PO daily - Carvedilol 25 mg PO BID - Start hydralazine 10 mg PO TID on 07/23 RA - Plaquenil 200 mg PO BID - Prednisone 30 mg PO daily (she refuses to see rheumatology or try other medications) OAB - Oxybutynin 10 mg PO daily, she desires to go up to 20 mg PO daily due to worsening symptoms on 07/20 Hypothyroidism - [place] Thyroid 150 mg PO daily
[2021-07-23] MEDS ORDERED: Meropenem 1 GM in Sodium Chloride 0.9% 100 ML IV SCH (16:00)
[2021-07-23] MEDS: Meropenem 1 GM in Sodium Chloride 0.9% 100 ML IV SCH (17:26)
[2021-07-23] MEDS: Fluconazole 100 MG Tab PO SCH (17:27)
[2021-07-23] MEDS: Non-Formulary Medication 1 Each (Empagliflozin [Jardiance] 10 MG) PO SCH (17:31)
[2021-07-23] MEDS: Insulin Glargine,Hum.Rec.Anlog 100 UNIT/ML 3 ML Pen SUBCUT SCH (20:46)
[2021-07-23] MEDS: predniSONE 10 MG Tab PO SCH (20:57)
[2021-07-23] MEDS: Acetaminophen 325 MG Tab PO PRN (20:57)
[2021-07-23] MEDS: Allopurinol 100 MG Tab PO SCH (20:58)
[2021-07-23] MEDS: Oxybutynin 5 MG Tab.ER PO SCH (20:58)
[2021-07-23] MEDS: busPIRone 10 MG Tab PO SCH (21:01)
[2021-07-23] MEDS: Albuterol 8 GM Inhaler INH PRN (22:12)
[2021-07-23] MEDS: hydrALAZINE 10 MG Tab PO SCH (22:13)
[2021-07-23] MEDS: tiZANidine 4 MG Tab PO PRN (22:13)
[2021-07-24] MEDS: Meropenem 1 GM in Sodium Chloride 0.9% 100 ML IV SCH ×3 (02:42→17:19)
[2021-07-24] MEDS: hydrALAZINE 10 MG Tab PO SCH ×3 (06:00→21:18)
[2021-07-24] MEDS: THYROID PORK 30 MG PO SCH (06:29)
[2021-07-24] MEDS: THYROID PORK 120 MG PO SCH (06:29)
[2021-07-24] MEDS: Pantoprazole 40 MG Tab.CR PO SCH (06:29)
[2021-07-24] MEDS: Insulin Aspart 100 Units/ML 3 ML Pen SUBCUT SCH ×4 (08:11→21:15)
[2021-07-24] MEDS: Ascorbic Acid 500 MG Tab PO SCH (08:57)
[2021-07-24] MEDS: Fish Oil/Omega-3 Fatty Acids 1 Gm Cap PO SCH (08:57)
[2021-07-24] MEDS: Losartan 50 MG Tab PO SCH (08:57)
[2021-07-24] MEDS: Aspirin 325 MG Tab.EC PO SCH (08:57)
[2021-07-24] MEDS: Enoxaparin 40 MG/0.4 ML Syringe SUBCUT SCH (08:57)
[2021-07-24] MEDS: Chondroitin/Glucosamine Cap PO SCH (08:58)
[2021-07-24] MEDS: Diclofenac Sodium 50 MG Tab.EC PO SCH ×2 (08:58→17:20)
[2021-07-24] MEDS: Loratadine 10 MG Tab PO SCH (08:58)
[2021-07-24] MEDS: Multivitamins with Minerals/Iron/Folic Acid/Lycopene Tab PO SCH (08:58)
[2021-07-24] MEDS: Calcium Citrate/Vitamin D3 315 MG-250 Unit Tab PO SCH (08:58)
[2021-07-24] MEDS: Lactobacillus Rhamnosus GG (Probiotic) Cap PO SCH (08:58)
[2021-07-24] MEDS: Magnesium Oxide 500 MG Tab PO SCH (08:58)
[2021-07-24] MEDS: predniSONE 20 MG Tab PO SCH (08:58)
[2021-07-24] MEDS: Hydroxychloroquine 200 MG Tab PO SCH ×2 (08:58→17:19)
[2021-07-24] MEDS: Carvedilol 12.5 MG Tab PO SCH ×2 (08:58→21:17)
[2021-07-24] MEDS: amLODIPine 5 MG Tab PO SCH (08:58)
[2021-07-24] MEDS: Clotrimazole 1% Crm 30 GM Tube TOP SCH ×2 (09:02→21:12)
[2021-07-24] MEDS: Non-Formulary Medication 1 Each (Liraglutide [Victoza 2-Pak] 1.8 MG) SQ SCH (09:02)
[2021-07-24] MEDS: Fluconazole 100 MG Tab PO SCH (17:19)
[2021-07-24] MEDS: Non-Formulary Medication 1 Each (Empagliflozin [Jardiance] 10 MG) PO SCH (17:20)
[2021-07-24] MEDS: Albuterol 8 GM Inhaler INH PRN (20:30)
[2021-07-24] MEDS: Non-Formulary Medication 1 Each (Netarsudil Mesylat/Latanoprost [Rocklatan 0.02%-0.005% Ey EYEBOTH SCH (21:13)
[2021-07-24] MEDS: Insulin Glargine,Hum.Rec.Anlog 100 UNIT/ML 3 ML Pen SUBCUT SCH (21:14)
[2021-07-24] MEDS: predniSONE 10 MG Tab PO SCH (21:17)
[2021-07-24] MEDS: busPIRone 10 MG Tab PO SCH (21:17)
[2021-07-24] MEDS: Oxybutynin 5 MG Tab.ER PO SCH (21:17)
[2021-07-24] MEDS: Allopurinol 100 MG Tab PO SCH (21:17)
[2021-07-24] MEDS: tiZANidine 4 MG Tab PO PRN (22:06)
[2021-07-24] MEDS: Acetaminophen 325 MG Tab PO PRN (22:06)
[2021-07-25] MEDS: Meropenem 1 GM in Sodium Chloride 0.9% 100 ML IV SCH ×3 (01:48→17:54)
[2021-07-25] MEDS: Sodium Chloride 0.9% 10 ML Syringe FLUSH PRN (01:50)
[2021-07-25] MEDS: hydrALAZINE 10 MG Tab PO SCH ×3 (06:00→22:25)
[2021-07-25] MEDS: THYROID PORK 30 MG PO SCH (06:31)
[2021-07-25] MEDS: Pantoprazole 40 MG Tab.CR PO SCH (06:31)
[2021-07-25] MEDS: THYROID PORK 120 MG PO SCH (06:31)
[2021-07-25] MEDS: Insulin Aspart 100 Units/ML 3 ML Pen SUBCUT SCH ×4 (08:51→21:03)
[2021-07-25] MEDS: Magnesium Oxide 500 MG Tab PO SCH (08:52)
[2021-07-25] MEDS: Chondroitin/Glucosamine Cap PO SCH (08:52)
[2021-07-25] MEDS: Enoxaparin 40 MG/0.4 ML Syringe SUBCUT SCH (08:53)
[2021-07-25] MEDS: predniSONE 20 MG Tab PO SCH (08:54)
[2021-07-25] MEDS: Lactobacillus Rhamnosus GG (Probiotic) Cap PO SCH (08:54)
[2021-07-25] MEDS: Carvedilol 12.5 MG Tab PO SCH ×2 (08:54→21:01)
[2021-07-25] MEDS: Multivitamins with Minerals/Iron/Folic Acid/Lycopene Tab PO SCH (08:55)
[2021-07-25] MEDS: Aspirin 325 MG Tab.EC PO SCH (08:55)
[2021-07-25] MEDS: Hydroxychloroquine 200 MG Tab PO SCH ×2 (08:55→17:59)
[2021-07-25] MEDS: amLODIPine 5 MG Tab PO SCH (08:55)
[2021-07-25] MEDS: Loratadine 10 MG Tab PO SCH (08:55)
[2021-07-25] MEDS: Fish Oil/Omega-3 Fatty Acids 1 Gm Cap PO SCH (08:55)
[2021-07-25] MEDS: Ascorbic Acid 500 MG Tab PO SCH (08:55)
[2021-07-25] MEDS: Losartan 50 MG Tab PO SCH (08:55)
[2021-07-25] MEDS: Calcium Citrate/Vitamin D3 315 MG-250 Unit Tab PO SCH (08:56)
[2021-07-25] MEDS: Diclofenac Sodium 50 MG Tab.EC PO SCH ×2 (08:59→17:59)
[2021-07-25] MEDS: Non-Formulary Medication 1 Each (Liraglutide [Victoza 2-Pak] 1.8 MG) SQ SCH (09:04)
[2021-07-25] MEDS: Clotrimazole 1% Crm 30 GM Tube TOP SCH ×2 (09:04→21:01)
[2021-07-25] MEDS: Fluconazole 100 MG Tab PO SCH (17:59)
[2021-07-25] MEDS: Non-Formulary Medication 1 Each (Empagliflozin [Jardiance] 10 MG) PO SCH (18:00)
[2021-07-25] MEDS: predniSONE 10 MG Tab PO SCH (21:00)
[2021-07-25] MEDS: Oxybutynin 5 MG Tab.ER PO SCH (21:00)
[2021-07-25] MEDS: Allopurinol 100 MG Tab PO SCH (21:00)
[2021-07-25] MEDS: Non-Formulary Medication 1 Each (Netarsudil Mesylat/Latanoprost [Rocklatan 0.02%-0.005% Ey EYEBOTH SCH (21:01)
[2021-07-25] MEDS: busPIRone 10 MG Tab PO SCH (21:01)
[2021-07-25] MEDS: Insulin Glargine,Hum.Rec.Anlog 100 UNIT/ML 3 ML Pen SUBCUT SCH (21:02)
[2021-07-25] MEDS: Albuterol 8 GM Inhaler INH PRN (22:00)
[2021-07-25] MEDS: tiZANidine 4 MG Tab PO PRN (22:25)
[2021-07-26] MEDS: Meropenem 1 GM in Sodium Chloride 0.9% 100 ML IV SCH ×3 (01:29→17:26)
[2021-07-26] MEDS: hydrALAZINE 10 MG Tab PO SCH ×3 (05:40→21:07)
[2021-07-26] MEDS: THYROID PORK 30 MG PO SCH (06:30)
[2021-07-26] MEDS: Pantoprazole 40 MG Tab.CR PO SCH (06:30)
[2021-07-26] MEDS: THYROID PORK 120 MG PO SCH (06:30)
[2021-07-26] MEDS: Insulin Aspart 100 Units/ML 3 ML Pen SUBCUT SCH ×4 (08:00→21:07)
[2021-07-26] MEDS: Diclofenac Sodium 50 MG Tab.EC PO SCH ×2 (08:05→17:08)
[2021-07-26] MEDS: Hydroxychloroquine 200 MG Tab PO SCH ×2 (08:05→17:08)
[2021-07-26] MEDS: Fish Oil/Omega-3 Fatty Acids 1 Gm Cap PO SCH (09:05)
[2021-07-26] MEDS: Carvedilol 12.5 MG Tab PO SCH ×2 (09:06→21:09)
[2021-07-26] MEDS: Calcium Citrate/Vitamin D3 315 MG-250 Unit Tab PO SCH (09:06)
[2021-07-26] MEDS: Loratadine 10 MG Tab PO SCH (09:07)
[2021-07-26] MEDS: Aspirin 325 MG Tab.EC PO SCH (09:07)
[2021-07-26] MEDS: predniSONE 20 MG Tab PO SCH (09:07)
[2021-07-26] MEDS: Magnesium Oxide 500 MG Tab PO SCH (09:07)
[2021-07-26] MEDS: Chondroitin/Glucosamine Cap PO SCH (09:08)
[2021-07-26] MEDS: Ascorbic Acid 500 MG Tab PO SCH (09:08)
[2021-07-26] MEDS: Lactobacillus Rhamnosus GG (Probiotic) Cap PO SCH (09:08)
[2021-07-26] MEDS: Losartan 50 MG Tab PO SCH (09:09)
[2021-07-26] MEDS: Multivitamins with Minerals/Iron/Folic Acid/Lycopene Tab PO SCH (09:09)
[2021-07-26] MEDS: amLODIPine 5 MG Tab PO SCH (09:09)
[2021-07-26] MEDS: Enoxaparin 40 MG/0.4 ML Syringe SUBCUT SCH (09:10)
[2021-07-26] MEDS: Non-Formulary Medication 1 Each (Liraglutide [Victoza 2-Pak] 1.8 MG) SQ SCH (09:11)
[2021-07-26] MEDS: Clotrimazole 1% Crm 30 GM Tube TOP SCH ×2 (09:14→21:03)
[2021-07-26] MEDS: Sodium Chloride 0.9% 10 ML Syringe FLUSH PRN ×2 (10:18→17:26)
[2021-07-26] MEDS: Fluconazole 100 MG Tab PO SCH (17:08)
[2021-07-26] MEDS: Non-Formulary Medication 1 Each (Empagliflozin [Jardiance] 10 MG) PO SCH (17:09)
[2021-07-26] MEDS: Sodium Chloride 0.9% 100 ML IV SCH (18:02)
[2021-07-26] MEDS: Non-Formulary Medication 1 Each (Netarsudil Mesylat/Latanoprost [Rocklatan 0.02%-0.005% Ey EYEBOTH SCH (21:03)
[2021-07-26] MEDS: Insulin Glargine,Hum.Rec.Anlog 100 UNIT/ML 3 ML Pen SUBCUT SCH (21:04)
[2021-07-26] MEDS: predniSONE 10 MG Tab PO SCH (21:08)
[2021-07-26] MEDS: busPIRone 10 MG Tab PO SCH (21:08)
[2021-07-26] MEDS: Oxybutynin 5 MG Tab.ER PO SCH (21:08)
[2021-07-26] MEDS: Allopurinol 100 MG Tab PO SCH (21:08)
[2021-07-26] MEDS: tiZANidine 4 MG Tab PO PRN (22:46)
[2021-07-26] MEDS: Acetaminophen 325 MG Tab PO PRN (22:46)
[2021-07-27] MEDS: Meropenem 1 GM in Sodium Chloride 0.9% 100 ML IV SCH ×3 (01:40→17:53)
[2021-07-27] MEDS: hydrALAZINE 10 MG Tab PO SCH ×3 (06:22→21:46)
[2021-07-27] MEDS: Pantoprazole 40 MG Tab.CR PO SCH (06:32)
[2021-07-27] MEDS: THYROID PORK 120 MG PO SCH (06:32)
[2021-07-27] MEDS: THYROID PORK 30 MG PO SCH (06:32)
[2021-07-27] MEDS: Insulin Aspart 100 Units/ML 3 ML Pen SUBCUT SCH ×4 (07:57→21:46)
[2021-07-27] MEDS: Enoxaparin 40 MG/0.4 ML Syringe SUBCUT SCH (09:39)
[2021-07-27] MEDS: Loratadine 10 MG Tab PO SCH (09:39)
[2021-07-27] MEDS: Diclofenac Sodium 50 MG Tab.EC PO SCH ×2 (09:39→17:48)
[2021-07-27] MEDS: predniSONE 20 MG Tab PO SCH (09:39)
[2021-07-27] MEDS: Chondroitin/Glucosamine Cap PO SCH (09:39)
[2021-07-27] MEDS: Calcium Citrate/Vitamin D3 315 MG-250 Unit Tab PO SCH (09:40)
[2021-07-27] MEDS: Multivitamins with Minerals/Iron/Folic Acid/Lycopene Tab PO SCH (09:40)
[2021-07-27] MEDS: Fish Oil/Omega-3 Fatty Acids 1 Gm Cap PO SCH (09:40)
[2021-07-27] MEDS: Hydroxychloroquine 200 MG Tab PO SCH ×2 (09:40→17:48)
[2021-07-27] MEDS: Ascorbic Acid 500 MG Tab PO SCH (09:40)
[2021-07-27] MEDS: Aspirin 325 MG Tab.EC PO SCH (09:41)
[2021-07-27] MEDS: Magnesium Oxide 500 MG Tab PO SCH (09:41)
[2021-07-27] MEDS: Losartan 50 MG Tab PO SCH (09:41)
[2021-07-27] MEDS: Carvedilol 12.5 MG Tab PO SCH ×2 (09:42→21:44)
[2021-07-27] MEDS: amLODIPine 5 MG Tab PO SCH (09:42)
[2021-07-27] MEDS: Non-Formulary Medication 1 Each (Liraglutide [Victoza 2-Pak] 1.8 MG) SQ SCH (09:43)
[2021-07-27] MEDS: Clotrimazole 1% Crm 30 GM Tube TOP SCH ×2 (09:44→21:45)
[2021-07-27] MEDS: Lactobacillus Rhamnosus GG (Probiotic) Cap PO SCH (09:45)
[2021-07-27] MEDS: Sodium Chloride 0.9% 10 ML Syringe FLUSH PRN ×2 (09:58→17:55)
[2021-07-27] MEDS: Fluconazole 100 MG Tab PO SCH (17:48)
[2021-07-27] MEDS: Non-Formulary Medication 1 Each (Empagliflozin [Jardiance] 10 MG) PO SCH (17:50)
[2021-07-27] MEDS: Psyllium Husk Powder Sugar Free 5.85 GM Packet PO SCH (18:11)
[2021-07-27] MEDS: busPIRone 10 MG Tab PO SCH (21:44)
[2021-07-27] MEDS: Allopurinol 100 MG Tab PO SCH (21:45)
[2021-07-27] MEDS: Non-Formulary Medication 1 Each (Netarsudil Mesylat/Latanoprost [Rocklatan 0.02%-0.005% Ey EYEBOTH SCH (21:45)
[2021-07-27] MEDS: predniSONE 10 MG Tab PO SCH (21:45)
[2021-07-27] MEDS: Oxybutynin 5 MG Tab.ER PO SCH (21:45)
[2021-07-27] MEDS: Insulin Glargine,Hum.Rec.Anlog 100 UNIT/ML 3 ML Pen SUBCUT SCH (21:45)
[2021-07-27] MEDS: tiZANidine 4 MG Tab PO PRN (22:32)
[2021-07-27] MEDS: Albuterol 8 GM Inhaler INH PRN (22:33)
[2021-07-27] MEDS: Acetaminophen 325 MG Tab PO PRN (22:33)
[2021-07-28] MEDS: Meropenem 1 GM in Sodium Chloride 0.9% 100 ML IV SCH ×3 (01:07→17:43)
[2021-07-28] MEDS: hydrALAZINE 10 MG Tab PO SCH ×3 (05:13→21:30)
[2021-07-28] MEDS: THYROID PORK 120 MG PO SCH (06:30)
[2021-07-28] MEDS: THYROID PORK 30 MG PO SCH (06:30)
[2021-07-28] MEDS: Pantoprazole 40 MG Tab.CR PO SCH (06:30)
[2021-07-28] MEDS: Insulin Aspart 100 Units/ML 3 ML Pen SUBCUT SCH ×4 (08:11→21:30)
[2021-07-28] MEDS: Enoxaparin 40 MG/0.4 ML Syringe SUBCUT SCH (08:12)
[2021-07-28] MEDS: Hydroxychloroquine 200 MG Tab PO SCH ×2 (08:13→17:57)
[2021-07-28] MEDS: Ascorbic Acid 500 MG Tab PO SCH (08:13)
[2021-07-28] MEDS: Aspirin 325 MG Tab.EC PO SCH (08:14)
[2021-07-28] MEDS: Diclofenac Sodium 50 MG Tab.EC PO SCH ×2 (08:14→17:55)
[2021-07-28] MEDS: Calcium Citrate/Vitamin D3 315 MG-250 Unit Tab PO SCH (08:14)
[2021-07-28] MEDS: Chondroitin/Glucosamine Cap PO SCH (08:14)
[2021-07-28] MEDS: Multivitamins with Minerals/Iron/Folic Acid/Lycopene Tab PO SCH (08:14)
[2021-07-28] MEDS: predniSONE 20 MG Tab PO SCH (08:14)
[2021-07-28] MEDS: Fish Oil/Omega-3 Fatty Acids 1 Gm Cap PO SCH (08:14)
[2021-07-28] MEDS: Loratadine 10 MG Tab PO SCH (08:14)
[2021-07-28] MEDS: Magnesium Oxide 500 MG Tab PO SCH (08:14)
[2021-07-28] MEDS: Carvedilol 12.5 MG Tab PO SCH ×2 (08:19→21:30)
[2021-07-28] MEDS: Losartan 50 MG Tab PO SCH (08:20)
[2021-07-28] MEDS: amLODIPine 5 MG Tab PO SCH (08:20)
[2021-07-28] MEDS: Non-Formulary Medication 1 Each (Liraglutide [Victoza 2-Pak] 1.8 MG) SQ SCH (08:23)
[2021-07-28] MEDS: Clotrimazole 1% Crm 30 GM Tube TOP SCH ×2 (08:25→21:30)
[2021-07-28] MEDS: Psyllium Husk Powder Sugar Free 5.85 GM Packet PO SCH (08:26)
[2021-07-28] MEDS: Albuterol 8 GM Inhaler INH PRN (11:30)
--- NOTE | 2021-07-28 15:52 | CR ---
[id number] RAD/RAD Chest PA or AP 1V EXAM: FRONTAL CHEST INDICATION: PICC LINE INSERTION. COMPARISON: July 21, 2021. DISCUSSION: A right upper extremity PICC deviates leftward at the upper mediastinum and may reside within the left brachiocephalic vein. Borderline heart size without evidence of edema. Low lung volumes. Left base scarring or atelectasis. IMPRESSION: 1. Malpositioned right upper extremity PICC. Leonidas Chung MD 07/28/21 [id number] Thank you for allowing us to participate in the care of your patient.
--- NOTE | 2021-07-28 16:20 | CR ---
[id number] RAD/RAD Chest PA or AP 1V EXAM: FRONTAL CHEST INDICATION: PICC LINE PLACEMENT. COMPARISON: July 28, 2021. DISCUSSION: Low lung volumes. Borderline heart size with possible early central vascular congestion. The right upper extremity PICC has been retracted and now overlies the right brachiocephalic vein. This could be advanced 4 cm. IMPRESSION: 1. Right upper extremity PICC expected location of the right brachiocephalic vein. Consider advancement 4 cm. Leonidas Chung MD 07/28/21 [id number] Thank you for allowing us to participate in the care of your patient.
[2021-07-28] MEDS: Sodium Chloride 0.9% 100 ML IV SCH (17:44)
[2021-07-28] MEDS: Fluconazole 100 MG Tab PO SCH (17:56)
[2021-07-28] MEDS: Non-Formulary Medication 1 Each (Empagliflozin [Jardiance] 10 MG) PO SCH (17:58)
[2021-07-28] MEDS: Non-Formulary Medication 1 Each (Netarsudil Mesylat/Latanoprost [Rocklatan 0.02%-0.005% Ey EYEBOTH SCH (21:30)
[2021-07-28] MEDS: Acetaminophen 325 MG Tab PO PRN (21:30)
[2021-07-28] MEDS: Insulin Glargine,Hum.Rec.Anlog 100 UNIT/ML 3 ML Pen SUBCUT SCH (21:30)
[2021-07-28] MEDS: Oxybutynin 5 MG Tab.ER PO SCH (21:30)
[2021-07-28] MEDS: Allopurinol 100 MG Tab PO SCH (21:30)
[2021-07-28] MEDS: busPIRone 10 MG Tab PO SCH (21:30)
[2021-07-28] MEDS: predniSONE 10 MG Tab PO SCH (21:30)
[2021-07-28] MEDS: tiZANidine 4 MG Tab PO PRN (22:24)
[2021-07-29] MEDS: Meropenem 1 GM in Sodium Chloride 0.9% 100 ML IV SCH ×2 (01:34→10:13)
[2021-07-29] MEDS: hydrALAZINE 10 MG Tab PO SCH ×2 (06:27→14:52)
[2021-07-29] MEDS: THYROID PORK 120 MG PO SCH (06:30)
[2021-07-29] MEDS: THYROID PORK 30 MG PO SCH (06:30)
[2021-07-29] MEDS: Pantoprazole 40 MG Tab.CR PO SCH (06:30)
[2021-07-29] MEDS: Ascorbic Acid 500 MG Tab PO SCH (08:47)
[2021-07-29] MEDS: Enoxaparin 40 MG/0.4 ML Syringe SUBCUT SCH (08:47)
[2021-07-29] MEDS: Fish Oil/Omega-3 Fatty Acids 1 Gm Cap PO SCH (08:47)
[2021-07-29] MEDS: Multivitamins with Minerals/Iron/Folic Acid/Lycopene Tab PO SCH (08:47)
[2021-07-29] MEDS: Chondroitin/Glucosamine Cap PO SCH (08:47)
[2021-07-29] MEDS: Aspirin 325 MG Tab.EC PO SCH (08:48)
[2021-07-29] MEDS: predniSONE 20 MG Tab PO SCH (08:48)
[2021-07-29] MEDS: Magnesium Oxide 500 MG Tab PO SCH (08:48)
[2021-07-29] MEDS: Loratadine 10 MG Tab PO SCH (08:48)
[2021-07-29] MEDS: Diclofenac Sodium 50 MG Tab.EC PO SCH (08:48)
[2021-07-29] MEDS: Calcium Citrate/Vitamin D3 315 MG-250 Unit Tab PO SCH (08:48)
[2021-07-29] MEDS: Hydroxychloroquine 200 MG Tab PO SCH (08:49)
[2021-07-29] MEDS: Losartan 50 MG Tab PO SCH (08:54)
[2021-07-29] MEDS: Carvedilol 12.5 MG Tab PO SCH (08:54)
[2021-07-29] MEDS: amLODIPine 5 MG Tab PO SCH (08:54)
[2021-07-29 08:55] VITALS: BP 153/83
[2021-07-29] MEDS: Insulin Aspart 100 Units/ML 3 ML Pen SUBCUT SCH ×2 (08:56→13:40)
[2021-07-29] MEDS: Psyllium Husk Powder Sugar Free 5.85 GM Packet PO SCH (08:57)
[2021-07-29] MEDS: Clotrimazole 1% Crm 30 GM Tube TOP SCH (08:58)
[2021-07-29] MEDS: Non-Formulary Medication 1 Each (Liraglutide [Victoza 2-Pak] 1.8 MG) SQ SCH (09:01)
[2021-07-29 09:22] VITALS: PULSE 78
--- NOTE | 2021-07-29 16:19 | PCM.DCSUM1 ---
Discharge Summary - Hospital Course Free Text/Narrative:: Acute IP admission 07/16 - 07/20/2021 Swingbed admission 07/20 - 07/29/2021 Disposition: Left swingbed for an outpatient appointment and did not return, checking herself into an ER in [place] per her report to the hospital. Slime was in swingbed receiving IV antibiotics until we could get surgical consultation for potential amputation. She had an appointment in [place] on 07/29 at [facility]. She had arranged a ride. She called the hospital from [place] and stated she was too weak in to keep her surgical appointment and was going to check herself into an emergency room in [place] and someone would come to [place] to get her things from her room. OF NOTE: Her BP was elevated and her Carvediolol was increased from 25 mg PO q AM and 12.5 q PM to 25 mg PO BID and we also started hydralazine 10 mg PO TID, the latter of which really seemed to improve her BP and I would recommend continuing that as an outpatient. 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 The open ulcer tunnels to the bone - Initially in vancomycin and Zosyn, changed to Meropenem - MRI of foot and tib/fib on 07/22 shows the following --Osteomyelitis of the distal tib fib with intraosseous abscess in the distal tibia, 12 cm in length. Gas and fluid at the junction of the subcutaneous tissues with underlying muscle compartment of the leg extending from the ankle to the level of the proximal mid leg. Sept arthritis/osteomyelitis of the talus, calcaneous, distal tib fib, navicular and cuboid with associated gas and fluid within the osseous structures and collpase of the talus. - Consulted with podiatry who advises amputation, have reached out to podiatry on 07/23 for review of MRI and further discussion of options. Slime is very worried about how she will manage with an amputation. She has full mental capacity, discussed that IV antibiotics are NOT going to allow full recovery from this and amputation is likely her only option. She would benefit from podiatry and multidisciplinary approach of a larger facility to help her manage her expectations of life with an amputation. Debility secondary to above - PT consultation, not much PT is able to help with Secondary Diagnoses: Diarrhea secondary to antibiotic use - Imodium 2 mg PO q 4 hours PRN diarrhea, has not been helping, started start lomotil 07/20 - She is already on a probiotic Onychomycosis: - Clotrimazole topically to the affected nails BID PRN per patient preference Gout - Allopurinol 600 mg PO qhs DM - Lantus 26 units subcut daily - SSI per medium dose protocol - Victoza 1.8 mg subcut daily (on hold due to not on formulary) - Jardiance 10 mg PO daily - Accuchecks HTN - Amlodipine 10 mg PO daily - Losartan 100 mg PO daily - Carvedilol 25 mg PO BID - Start hydralazine 10 mg PO TID on 07/23 RA - Plaquenil 200 mg PO BID - Prednisone 30 mg PO daily (she refuses to see rheumatology or try other medications) OAB - Oxybutynin 10 mg PO daily, she desires to go up to 20 mg PO daily due to worsening symptoms on 07/20 Hypothyroidism - [place] Thyroid 150 mg PO daily CODE STATUS: DNR/DNI Medication changes at discharge: NONE, left from facility and did not return, resume home meds. Diagnosis: Stroke: No Modified [place] Scale: Mod.Sev.Disability ;Unable to Walk/Attend Bodily Needs W/O Assistance Modified Parker Scale Score: 4 - Discharge Data Discharge Date: 07/29/21 Discharge Disposition: DC/Tfer to Other 70 Condition: Serious - Referral to Home Health Primary Care Physician: Maria Esther Castillo MD - Patient Summary/Data Consults: Consultations 07/23/21 14:42 Consult to Physician [CONS] Urgent - Patient Instructions Diet: Diabetic Diet - Discharge Plan *PRESCRIPTION DRUG MONITORING PROGRAM REVIEWED*: Not Applicable *COPY OF PRESCRIPTION DRUG MONITORING REPORT IN PATIENT [place]: Not Applicable Home Medications: Home Meds Losartan Potassium 100 mg PO DAILY 02/28/17 [History] Acetaminophen [Tylenol] 650 mg PO Q6H PRN 05/28/18 [History] Albuterol [Ventolin HFA] 1 - 2 puff INH Q4H PRN 05/28/18 [History] Calcium Carbonate [Calcium] 1,000 mg PO DAILY PRN 05/28/18 [History] L. Acidophilus/L.bulgaricus [Lactobacillus Tablet] 1 tab PO DAILY 05/28/18 [History] Loratadine [Claritin] 10 mg PO DAILY 05/28/18 [History] Multivitamin with Minerals [Multivitamins with Minerals] 1 tab PO DAILY 05/28/18 [History] Oxybutynin [Oxybutynin ER] 20 mg PO BEDTIME 05/28/18 [History] Pantoprazole Sodium [Protonix] 40 mg PO ACBREAKFAST 05/28/18 [History] Thyroid,Pork [[place] Thyroid] 150 mg PO ACBREAKFAST 05/28/18 [History] tiZANidine [Zanaflex] 6 mg PO BEDTIME PRN 06/01/18 [History] Calcium Carbonate/Vitamin D3 [Calcium 600 + Vit D Tablet] 2 tab PO DAILY 05/03/19 [History] Diclofenac Sodium [Voltaren] 50 mg PO BIDMEALS 05/03/19 [History] Fish Oil/[place]-3 Fatty Acids [Fish Oil 1,000 MG] 1 cap PO DAILY 05/03/19 [History] Glucosam/Chond/Collagen/Hyalur [Glucosamine Chondroitin] 1 tab PO DAILY 05/03/19 [History] Hydroxychloroquine Sulfate 200 mg PO BIDMEALS 05/03/19 [History] diphenhydrAMINE [Benadryl] 25 mg PO Q4H PRN 05/03/19 [History] predniSONE [Prednisone] 20 mg PO QAM 05/03/19 [History] Ascorbic Acid [Vitamin C] 1,000 mg PO DAILY 12/28/20 [History] Carboxymethylcellulose Sodium [Artificial Tears] 1 drop EYEBOTH Q4H PRN 12/28/20 [History] Empagliflozin [Jardiance] 10 mg PO DAILY 12/28/20 [History] Insulin Aspart [NovoLOG] 0 unit SUBCUT WITHMEALSANDBED 12/28/20 [History] Insulin Glarg,Human.Rec.Analog [Lantus Solostar] 26 unit SUBCUT DAILY 12/28/20 [History] Liraglutide [Victoza 2-Javier] 1.8 mg SQ DAILY 12/28/20 [History] Magnesium 250 mg PO DAILY 12/28/20 [History] Netarsudil Mesylat/Latanoprost [Rocklatan 0.02%-0.005% Eye Drp] 1 drop OP DAILY 12/28/20 [History] amLODIPine Besylate [Amlodipine Besylate] 10 mg PO DAILY 12/28/20 [History] carvediloL [Carvedilol] 25 mg PO BID 12/28/20 [History] predniSONE [Prednisone] 10 mg PO QPM 12/28/20 [History] Aspirin [Aspirin EC] 325 mg PO DAILY 07/16/21 [History] Timolol Maleate/PF [Timolol Maleate 0.5% Eye Drop] 1 each OP BEDTIME 07/16/21 [History] busPIRone HCl [Buspirone HCl] 10 mg PO BEDTIME 07/16/21 [History] allopurinoL [Zyloprim] 400 mg PO BEDTIME 07/18/21 [History] Psyllium [Metamucil] 0.52 gm PO 1700 07/27/21 [History] Loperamide [Imodium] 2 mg PO Q4H PRN cap 07/29/21 [Rx] hydrALAZINE [Apresoline] 10 mg PO Q8H tablet 07/29/21 [Rx] - Discharge Summary/Plan Comment DC Time >30 min.: Yes Total # of Minutes for Discharge Time: 35 - General Info Date of Service: 07/29/21 Admission Dx/Problem (Free Text: Osteomyelitis of the foot and distal Tib/Fib with gas formation and fluid collection with intraosseus abscess. - Patient Data Vitals - Most Recent: Last Vital Signs Temp 97.3 F 07/29/21 09:00 Pulse 78 07/29/21 09:00 Resp 19 07/29/21 09:00 BP 153/83 H 07/29/21 09:00 Pulse Ox 98 07/29/21 09:00 Weight - Most Recent: 187 lb 8 oz I&O - Last 24 hours: Intake & Output 07/29/21 07/29/21 07/29/21 06:59 14:59 22:59 Intake Total 400 420 Balance 400 420 Med Orders - Current: Current Medications Acetaminophen (Acetaminophen 325 Mg Tab) 650 mg PO Q6H PRN PRN Reason: Pain Last Admin: 07/28/21 21:30 Dose: 650 mg Documented by: Albuterol (Albuterol 8 Gm Inhaler) 1 gm INH Q4H PRN PRN Reason: Shortness of Breath Last Admin: 07/28/21 11:30 Dose: 2 puff Documented by: Allopurinol (Allopurinol 100 Mg Tab) 400 mg PO BEDTIME [facility] Last Admin: 07/28/21 21:30 Dose: 400 mg Documented by: Amlodipine Besylate (Amlodipine 5 Mg Tab) 10 mg PO DAILY [facility] Last Admin: 07/29/21 08:54 Dose: 10 mg Documented by: Artificial Tears (Carboxymethylcellulose Sodium 0.5% Ophth Soln 15 Ml Bottle) 1 ml EYEBOTH Q4H PRN PRN Reason: Dry Eyes Last Admin: 07/28/21 17:52 Dose: 1 drop Documented by: Ascorbic Acid (Ascorbic Acid 500 Mg Tab) 1,000 mg PO DAILY [facility] Last Admin: 07/29/21 08:47 Dose: 1,000 mg Documented by: Aspirin (Aspirin 325 Mg Tab.Ec) 325 mg PO DAILY [facility] Last Admin: 07/29/21 08:48 Dose: 325 mg Documented by: Buspirone HCl (Buspirone 10 Mg Tab) 10 mg PO BEDTIME [facility] Last Admin: 07/28/21 21:30 Dose: 10 mg Documented by: Calcium Carbonate/Glycine (Calcium Carbonate 500 Mg Tab.Chew) 1,000 mg PO DAILY PRN PRN Reason: Heartburn Calcium Citrate (Calcium Citrate/Vitamin D3 315 Mg-250 Unit Tab) 2 tab PO DAILY [facility] Last Admin: 07/29/21 08:48 Dose: 2 tab Documented by: Carvedilol (Carvedilol 12.5 Mg Tab) 25 mg PO BID [facility] Last Admin: 07/29/21 08:54 Dose: 25 mg Documented by: Clotrimazole (Clotrimazole 1% Crm 30 Gm Tube) 1 gm TOP BID [facility] Last Admin: 07/29/21 08:58 Dose: 1 applic Documented by: Dextrose/Water (50% Dextrose In Water 50 Ml Syringe) 50 ml IVPUSH ASDIRECTED PRN PRN Reason: Hypoglycemia Diclofenac Sodium (Diclofenac Sodium 50 Mg Tab.Ec) 50 mg PO BIDMEALS [facility] Last Admin: 07/29/21 08:48 Dose: 50 mg Documented by: Diphenhydramine HCl (Diphenhydramine 25 Mg Cap) 25 mg PO Q4H PRN PRN Reason: Other Diphenoxylate HCl/Atropine (Atropine/Diphenoxylate 0.025-2.5 Mg Tab) 1 tab PO Q6H PRN PRN Reason: Diarrhea Enoxaparin Sodium (Enoxaparin 40 Mg/0.4 Ml Syringe) 40 mg SUBCUT DAILY [facility] Last Admin: 07/29/21 08:47 Dose: 40 mg Documented by: Fish Oil (Fish Oil/[place]-3 Fatty Acids 1 Gm Cap) 1 gm PO DAILY [facility] Last Admin: 07/29/21 08:47 Dose: 1 gm Documented by: Fluconazole (Fluconazole 100 Mg Tab) 200 mg PO DAILY@1800 [facility] Last Admin: 07/28/21 17:56 Dose: 200 mg Documented by: Glucagon (Glucagon,Human Recombinant 1 Mg Vial) 1 mg IM ASDIRECTED PRN PRN Reason: Hypoglycemia Glucosamine/Chondroitin (Chondroitin/Glucosamine Cap) 1 cap PO DAILY [facility] Last Admin: 07/29/21 08:47 Dose: 1 cap Documented by: Hydralazine HCl (Hydralazine 20 Mg/Ml Sdv) 10 mg IVPUSH Q8H PRN PRN Reason: Hypertension Hydralazine HCl (Hydralazine 10 Mg Tab) 10 mg PO Q8H [facility] Last Admin: 07/29/21 14:52 Dose: Not Given Documented by: Hydroxychloroquine Sulfate (Hydroxychloroquine 200 Mg Tab) 200 mg PO BIDMEALS [facility] Last Admin: 07/29/21 08:49 Dose: 200 mg Documented by: Sodium Chloride (Normal Saline) 100 mls @ 125 mls/hr IV ASDIRECTED [facility] Last Admin: 07/28/21 17:44 Dose: 125 mls/hr Documented by: Meropenem 1 gm/ Sodium (Chloride) 100 mls @ 200 mls/hr IV Q8H [facility] Last Admin: 07/29/21 10:13 Dose: 200 mls/hr Documented by: Ibuprofen (Ibuprofen 400 Mg Tab) 400 mg PO Q4H PRN PRN Reason: Pain Insulin Aspart (Insulin Aspart 100 Units/Ml 3 Ml Pen) 2 - 10 unit SUBCUT WITHMEALSANDBED [facility]; Protocol Last Admin: 07/29/21 13:40 Dose: Not Given Documented by: Insulin Glargine (Insulin Glargine,Hum.Rec.Anlog 100 Unit/Ml 3 Ml Pen) 26 unit SUBCUT BEDTIME [facility] Last Admin: 07/28/21 21:30 Dose: 26 unit Documented by: Loperamide HCl (Loperamide 2 Mg Cap) 2 mg PO Q4H PRN PRN Reason: Diarrhea Last Admin: 07/21/21 12:19 Dose: 2 mg Documented by: Loratadine (Loratadine 10 Mg Tab) 10 mg PO DAILY [facility] Last Admin: 07/29/21 08:48 Dose: 10 mg Documented by: Losartan Potassium (Losartan 50 Mg Tab) 100 mg PO DAILY [facility] Last Admin: 07/29/21 08:54 Dose: 100 mg Documented by: Magnesium Oxide (Magnesium Oxide 500 Mg Tab) 250 mg PO DAILY [facility] Last Admin: 07/29/21 08:48 Dose: 250 mg Documented by: Multivitamins/Minerals (Multivitamins With Minerals/Iron/Folic Acid/Lycopene Tab) 1 tab PO DAILY [facility] Last Admin: 07/29/21 08:47 Dose: 1 tab Documented by: Non-Formulary Medication (Liraglutide [Victoza 2-Javier]) 1.8 mg SQ DAILY [facility] Last Admin: 07/29/21 09:01 Dose: 1.8 mg Documented by: Non-Formulary Medication (Thyroid,Pork [[place] Thyroid]) 120 mg PO ACBREAKFAST [facility] Last Admin: 07/29/21 06:30 Dose: 120 mg Documented by: Non-Formulary Medication (Thyroid,Pork [[place] Thyroid]) 30 mg PO ACBREAKFAST [facility] Last Admin: 07/29/21 06:30 Dose: 30 mg Documented by: Non-Formulary Medication (Empagliflozin [Jardiance]) 10 mg PO DAILY@1800 [facility] Last Admin: 07/28/21 17:58 Dose: 10 mg Documented by: Non-Formulary Medication (Netarsudil Mesylat/Latanoprost [Rocklatan 0.02%-0.005% Eye Drp]) 1 drop EYEBOTH BEDTIME [facility] Last Admin: 07/28/21 21:30 Dose: 1 drop Documented by: Oxybutynin Chloride (Oxybutynin 5 Mg Tab.Er) 20 mg PO BEDTIME [facility] Last Admin: 07/28/21 21:30 Dose: 20 mg Documented by: Pantoprazole Sodium (Pantoprazole 40 Mg Tab.Cr) 40 mg PO ACBREAKFAST [facility] Last Admin: 07/29/21 06:30 Dose: 40 mg Documented by: Prednisone (Prednisone 10 Mg Tab) 10 mg PO QPM [facility] Last Admin: 07/28/21 21:30 Dose: 10 mg Documented by: Prednisone (Prednisone 20 Mg Tab) 20 mg PO QAM [facility] Last Admin: 07/29/21 08:48 Dose: 20 mg Documented by: Psyllium Husk (Psyllium Husk Powder Sugar Free 5.85 Gm Packet) 1 pkt PO DAILY [facility] Last Admin: 07/29/21 08:57 Dose: 1 pkt Documented by: Sodium Chloride (Sodium Chloride 0.9% 10 Ml Syringe) 10 ml FLUSH Q8HR PRN PRN Reason: keep vein open Last Admin: 07/27/21 17:55 Dose: 10 ml Documented by: Tizanidine HCl (Tizanidine 4 Mg Tab) 6 mg PO BEDTIME PRN PRN Reason: Other Last Admin: 07/28/21 22:24 Dose: 6 mg Documented by: Discontinued Medications Carvedilol (Carvedilol 12.5 Mg Tab) 12.5 mg PO QPM [facility] Carvedilol (Carvedilol 12.5 Mg Tab) 25 mg PO QAM [facility] Gadobenate Dimeglumine (Gadobenate Dimeglumine 529 Mg/Ml 10 Ml Sdv) 10 ml IVPUSH ONETIME ONE Stop: 07/23/21 08:19 Last Admin: 07/22/21 16:30 Dose: 10 ml Documented by: Hydralazine HCl (Hydralazine 10 Mg Tab) 10 mg PO Q8H [facility] Last Admin: 07/23/21 10:36 Dose: 10 mg Documented by: Piperacillin/Tazobactam/ (Dextrose 3.375 gm/ Premix) 50 mls @ 100 mls/hr IV Q6H [facility] Last Admin: 07/23/21 10:53 Dose: 100 mls/hr Documented by: Vancomycin HCl 0.75 gm/ Sodium (Chloride) 250 mls @ 166.667 mls/hr IV Q12H [facility] Last Admin: 07/23/21 06:10 Dose: 166.667 mls/hr Documented by: Meropenem 1 gm/ Sodium (Chloride) 100 mls @ 200 mls/hr IV Q8H [facility] Ketorolac Tromethamine (Ketorolac 30 Mg/Ml Sdv) 30 mg IVPUSH Q12H PRN PRN Reason: Pain Stop: 07/22/21 15:09 Last Admin: 07/21/21 12:20 Dose: 30 mg Documented by: Ketorolac Tromethamine (Ketorolac 30 Mg/Ml Sdv) 30 mg IVPUSH ONETIME ONE Stop: 07/22/21 16:16 Last Admin: 07/22/21 21:49 Dose: Not Given Documented by: Lactobacillus Rhamnosus (Lactobacillus Rhamnosus Gg (Probiotic) Cap) 1 cap PO DAILY [facility] Last Admin: 07/27/21 09:45 Dose: Not Given Documented by: Non-Formulary Medication (Netarsudil Mesylat/Latanoprost [[place] 0.02%-0.005% Eye Drp]) 1 drop EYEBOTH DAILY [facility] Last Admin: 07/23/21 21:00 Dose: 1 drop Documented by: Timolol Maleate (Timolol Maleate 0.5% Ophth Soln 5 Ml Bottle) 1 ml EYEBOTH BEDTIME [facility] Last Admin: 07/22/21 20:06 Dose: 2 drop Documented by: Comments:: Patient left without being seen for an outpatient appointment and never ret urned.
== END 2021-07-29 16:02 | disposition other institution (70) | DRG 638 ==
LOC: KA.MS 11:55 → UNDOADMIN 13:25 → KA.MS 13:25
PROVIDERS: ADMIT Internal Medicine; ATTEND Internal Medicine
DX: E11.69 Type 2 diabetes mellitus with other specified complication (principal); M86.9 Osteomyelitis, unspecified; E11.621 Type 2 diabetes mellitus with foot ulcer; L97.519 Non-pressure chronic ulcer of other part of right foot with unspecified severity; R53.81 Other malaise; B35.1 Tinea unguium; M10.9 Gout, unspecified; Z66 Do not resuscitate; N32.81 Overactive bladder; M06.9 Rheumatoid arthritis, unspecified; E03.9 Hypothyroidism, unspecified; Z79.82 Long term (current) use of aspirin; Z79.52 Long term (current) use of systemic steroids; Z79.4 Long term (current) use of insulin; Z79.899 Other long term (current) drug therapy
CPT/HCPCS: 36415; 36569; 71045; 73720-RT; 80048; 80202; 82947; 85025; A9270-GY; A9577; J1650; J1885; J2185; J2543; J3370; J7050; J7512

== ENCOUNTER 2021-08-13 11:24 | Emergency (ER) | payer MEDICAID ==
[2021-08-13 12:02] VITALS: BP 101/63; PULSE 87
[2021-08-13] MEDS ORDERED: Iopamidol 755 Mg/ML 75 ML Bottle IVPUSH ONE (12:17)
[2021-08-13] MEDS ORDERED: Sodium Chloride 0.9% 50 ML IV SCH (12:30)
[2021-08-13 13:05] LABS: ANION GAP 18.2 mmol/L (5-15); CHLORIDE,CL 102 mmol/L (98-107); SODIUM,NA 138 mmol/L (136-145)
[2021-08-13 13:09] LABS: PTT,PARTIAL THROMBOPLSTIN TIME 25.1 SEC (22.8-31.4)
[2021-08-13] MEDS ORDERED: Nystatin Susp 100,000 Unit/ML 5 ML UD Cup PO SCH (14:15)
[2021-08-13] MEDS ORDERED: HYDROmorphone 2 MG Tab PO PRN (14:15)
--- NOTE | 2021-08-13 14:29 | CR ---
[id number] RAD/RAD Chest PA or AP 1V EXAM: SINGLE VIEW CHEST. INDICATION: COVID HYPOXIA COMPARISON: CORRELATION IS MADE WITH JULY 28, 2021 FINDINGS: Bilateral infiltrates are slightly increased There is bibasilar atelectasis There is abdominal distention A PICC line is no longer seen The cardiomediastinal contour is stable IMPRESSION: SLIGHT INCREASE IN BIBASILAR INFILTRATES Kem Ashyb MD 08/13/21 [id number] Thank you for allowing us to participate in the care of your patient.
--- NOTE | 2021-08-13 15:13 | EDM.PDOC ---
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 She is currently at the [facility]. Upon her arrival her O2 saturations were running in the 80s on room air. And was placed on supplemental oxygen. Initially was placed on 5 L and has been able to be weaned down to 3 L maintaining at 90 to 91%. We did try weaning her off all O2 and she did drop back into 85%. She was not given her monoclonal antibody infusion due to being oxygen dependent at this time. She does complain of some mild shortness of breath. She has been afebrile. She is not cyanotic. She is not tachycardic. Overall she is feeling fairly well. Her main complaints are sore mouth which upon further investigation she has obvious thrush. She also has has some decubitus pressure ulcers that have been painful and [facility]. She has a progressive dressing sleeve on her right BKA. Onset: Gradual Duration: Day(s):, Constant Location: Reports: Generalized Quality: Reports: Ache Severity: Mild Improves with: Reports: None Worsens with: Reports: None Associated Symptoms: Reports: Shortness of Breath, Weakness (Chronic). Denies: Chest Pain, Diaphoresis, Fever/Chills, Nausea/Vomiting - Related Data Allergies Allergy/AdvReac Type Severity Reaction Status Date / Time animal dander Allergy Anaphylactic Verified 08/13/21 13:21 Shock banana Allergy Itching Verified 08/13/21 13:21 codeine Allergy Nausea and Verified 08/13/21 13:21 Vomiting latex Allergy Facial Verified 08/13/21 13:21 Swelling sammi flavor Allergy Anaphylactic Verified 08/13/21 13:21 Shock melon Allergy Stomach Verified 08/13/21 13:21 Ache meperidine [From Demerol] Allergy Nausea and Verified 08/13/21 13:21 Vomiting nickel Allergy Rash Verified 08/13/21 13:21 Sulfa (Sulfonamide Allergy Vomiting Verified 08/13/21 13:21 Antibiotics) sulfacetamide Allergy Vomiting Verified 08/13/21 13:21 [From Sulfamide] Home Meds: Home Meds Losartan Potassium 100 mg PO DAILY 02/28/17 [History] Albuterol [Ventolin HFA] 1 - 2 puff INH Q4H PRN 05/28/18 [History] Calcium Carbonate [Calcium] 1,000 mg PO DAILY PRN 05/28/18 [History] Loratadine [Claritin] 10 mg PO DAILY 05/28/18 [History] Oxybutynin [Oxybutynin ER] 20 mg PO BEDTIME 05/28/18 [History] Pantoprazole Sodium [Protonix] 40 mg PO ACBREAKFAST 05/28/18 [History] tiZANidine [Zanaflex] 6 mg PO BEDTIME PRN 06/01/18 [History] predniSONE [Prednisone] 20 mg PO QAM 05/03/19 [History] Carboxymethylcellulose Sodium [Artificial Tears] 1 drop EYEBOTH Q4H PRN 12/28/20 [History] Insulin Aspart [NovoLOG] 0 unit SUBCUT WITHMEALSANDBED 12/28/20 [History] Insulin Glarg,Human.Rec.Analog [Lantus Solostar] 26 unit SUBCUT DAILY 12/28/20 [History] Netarsudil Mesylat/Latanoprost [Rocklatan 0.02%-0.005% Eye Drp] 1 drop OP DAILY 12/28/20 [History] amLODIPine Besylate [Amlodipine Besylate] 10 mg PO DAILY 12/28/20 [History] carvediloL [Carvedilol] 25 mg PO BID 12/28/20 [History] predniSONE [Prednisone] 10 mg PO QPM 12/28/20 [History] Timolol Maleate/PF [Timolol Maleate 0.5% Eye Drop] 1 each OP BEDTIME 07/16/21 [History] busPIRone HCl [Buspirone HCl] 10 mg PO BEDTIME 07/16/21 [History] allopurinoL [Zyloprim] 400 mg PO BEDTIME 07/18/21 [History] Acetaminophen 1,000 mg PO TID 08/13/21 [History] Cefdinir [Omnicef] 300 mg PO BID 08/13/21 [History] Diclofenac Sodium [Voltaren] 50 mg PO BID 08/13/21 [History] Empagliflozin [Jardiance] 10 mg PO QAM 08/13/21 [History] HYDROmorphone [Dilaudid] 2 mg PO Q4H PRN 08/13/21 [History] Hydroxychloroquine [Plaquenil] 200 mg PO BID 08/13/21 [History] Liraglutide [Victoza 2-Javier] 1.8 mg SQ QAM 08/13/21 [History] Thyroid [[place] Thyroid] 120 mg PO DAILY 08/13/21 [History] Vitamin A 10,000 units PO QAM 08/13/21 [History] diazePAM [Valium.] 5 mg PO Q6H PRN 08/13/21 [History] Past Medical History HEENT History: Reports: Cataract, Glaucoma, Impaired Vision Cardiovascular History: Reports: High Cholesterol, Hypertension Respiratory History: Reports: Asthma, Bronchitis, Recurrent, Sleep Apnea Gastrointestinal History: Reports: GERD, GI Bleed, Hemorrhoids, Helicobacter Pylori, Hiatal Hernia, Irritable Bowel Syndrome, Other (See Below) Other Gastrointestinal History: stomach ulcer Genitourinary History: Reports: Other (See Below) Other Genitourinary History: diabetic kidney disease [employer]ING [employer]ING [employer] History: Reports: Polycystic Ovaries, , Spontaneous Musculoskeletal History: Reports: Fibromyalgia, Gout, Osteoarthritis, Osteoporosis, RA Neurological History: Reports: Concussion, Neuropathy, Diabetic Psychiatric History: Reports: Depression Endocrine/Metabolic History: Reports: Diabetes, Type II, Hypothyroidism, IDDM, Obesity/BMI 30+, Osteoporosis Hematologic History: Reports: Anesthesia Reaction, Blood Transfusion(s) Immunologic History: Reports: None Oncologic (Cancer) History: Reports: Other (See Below) Other Oncologic History: pre-cancerous growths on uterus and ovaries Dermatologic History: Reports: Cellulitis, Other (See Below) Other Dermatologic History: edema - Infectious Disease History Infectious Disease History: Reports: Chicken Pox, Helicobacter Pylori, Influenza, Measles, Mononucleosis, Mumps, Novel Coronavirus, Pertussis (Whooping Cough), Shingles, Other (See Below) - Past Surgical History Head Surgeries/Procedures: Reports: None HEENT Surgical History: Reports: Adenoidectomy, Eye Surgery, Oral Surgery, Tonsillectomy Cardiovascular Surgical History: Reports: None Respiratory Surgical History: Reports: None GI Surgical History: Reports: Colonoscopy, EGD Female Surgical History: Reports: Hysterectomy Endocrine Surgical History: Reports: None Neurological Surgical History: Reports: None Musculoskeletal Surgical History: Reports: Carpal Tunnel, Other (See Below) Other Musculoskeletal Surgeries/Procedures:: right above the knee amputation 2020 Dermatological Surgical History: Reports: None Social & Family History - Family History Family Medical History: No Pertinent Family History - Tobacco Use Tobacco Use Status *Q: Never Tobacco User - Caffeine Use Caffeine Use: Reports: None - Recreational Drug Use Recreational Drug Use: No ED ROS GENERAL - Review of Systems Review Of Systems: See Below Constitutional: Reports: Weakness. Denies: Fever, Chills, Diaphoresis HEENT: Reports: Glasses, Throat Pain Respiratory: Reports: Shortness of Breath Cardiovascular: Reports: Dyspnea on Exertion. Denies: Chest Pain, Palpitations, Syncope Endocrine: Reports: High Glucose GI/Abdominal: Denies: Abdominal Pain, Nausea, Vomiting : Reports: No Symptoms, Other (Alejo indwelling) Musculoskeletal: Reports: No Symptoms Skin: Denies: Cyanosis, Jaundice Neurological: Reports: No Symptoms Psychiatric: Reports: Depression. Denies: Homicidal Ideation, Suicidal Ideation Hematologic/Lymphatic: Reports: Anemia Immunologic: Reports: No Symptoms ED EXAM, GENERAL - Physical Exam Exam: See Below Exam Limited By: No Limitations General Appearance: Alert, WD/WN, No Apparent Distress Eye Exam: Bilateral Eye: EOMI Ears: Hearing Grossly Normal Throat/Mouth: Other (Oral thrush) Head: Atraumatic, Normocephalic Neck: Normal Inspection, Supple, Non-Tender, Full Range of Motion. No: Lymphadenopathy (L), Lymphadenopathy (R) Respiratory/Chest: No Respiratory Distress, No Accessory Muscle Use, Chest Non- Tender, Crackles. No: Respiratory Distress Cardiovascular: Regular Rate, Rhythm Peripheral Pulses: 2+: Carotid (L), Carotid (R) GI/Abdominal: Soft, Non-Tender Back Exam: Normal Inspection Extremities: Normal Inspection, Other (Amputation of the right lower extremity due to diabetic foot ulcer) Neurological: Alert, Oriented, No Motor/Sensory Deficits Psychiatric: Depressed Mood Skin Exam: Warm, Dry, Intact, Normal Color, No Rash Lymphatic: No Adenopathy Course - Vital Signs Last Recorded V/S: Last Vital Signs Temp 97.4 F 08/13/21 11:55 Pulse 87 08/13/21 11:55 Resp 20 08/13/21 11:55 BP 101/63 08/13/21 11:55 Pulse Ox 85 L 08/13/21 14:30 - Orders/Labs/Meds Orders: Active Orders 24 hr Category Date Time Status Ang Chest [CT] Stat Exams 08/13/21 11:55 Ordered PROCALCITONIN [REF] Stat Lab 08/13/21 12:30 Received HYDROmorphone [Dilaudid] Med 08/13/21 14:15 Active 2 mg PO Q6H PRN Nystatin [Mycostatin] Med 08/13/21 14:15 Active 5 ml PO ONETIME Sodium Chloride 0.9% [Normal Saline] 50 ml Med 08/13/21 12:30 Active IV ASDIRECTED Medication Orders Hydromorphone HCl (Hydromorphone 2 Mg Tab) 2 mg PO Q6H PRN PRN Reason: Pain Last Admin: 08/13/21 14:22 Dose: 2 mg Documented by: SHANE Sodium Chloride (Normal Saline) 50 mls @ 200 mls/min IV ASDIRECTED MALENA Nystatin (Nystatin Susp 100,000 Unit/Ml 5 Ml Ud Cup) 5 ml PO ONETIME MALENA Last Admin: 08/13/21 14:22 Dose: 5 ml Documented by: SHANE Labs: Laboratory Tests 08/13/21 08/13/21 08/13/21 Range/Units 12:30 12:30 12:30 WBC 5.36 (5.00-10.00) 10^3/uL RBC 3.90 (3.80-5.50) 10^6/uL Hgb 10.8 L (12.0-16.0) g/dL Hct 34.5 L (37.0-47.0) % MCV 88.5 D (82.0-92.0) fL MCH 27.7 (27.0-31.0) pg MCHC 31.3 L (32.0-36.0) g/dL RDW 15.1 H (11.5-14.5) % Plt Count 261 (150-400) 10^3/uL MPV 9.7 (7.4-10.4) fL Immature Gran % (Auto) 0.6 (0.0-5.0) % Neut % (Auto) 80.0 H (50.0-70.0) % Lymph % (Auto) 15.9 L (20.0-40.0) % Whitman % (Auto) 3.5 (2.0-8.0) % Eos % (Auto) 0.0 L (1.0-3.0) % Baso % (Auto) 0.0 (0.0-1.0) % Neut # (Auto) 4.29 (2.50-7.00) 10^3/uL Lymph # (Auto) 0.85 L (1.00-4.00) 10^3/uL Whitman # (Auto) 0.19 (0.10-0.80) 10^3/uL Eos # (Auto) 0.00 L (0.10-0.30) 10^3/uL Baso # (Auto) 0.00 (0.00-0.10) 10^3/uL Immature Gran # (Auto) 0.03 (0.00-0.50) 10^3/uL ESR Cancelled PT 9.3 (9.2-11.2) SEC INR 0.9 (0.9-1.1) APTT 25.1 (22.8-31.4) SEC D-Dimer, Quantitative 742 H (<400) ng/mL Sodium 138 (136-145) mmol/L Potassium 4.7 (3.5-5.1) mmol/L Chloride 102 (98-107) mmol/L Carbon Dioxide 22.5 (21.0-32.0) mmol/L Anion Gap 18.2 H (5-15) mmol/L BUN 24 H (7-18) mg/dL Creatinine 0.43 L (0.51-1.17) mg/dL Est Cr Clr Drug Dosing TNP Estimated GFR (MDRD) > 60 mL/min Glucose 133 (70-140) mg/dL Lactic Acid (0.4-2.0) mmol/L Calcium 8.9 (8.7-10.3) mg/dL Total Bilirubin 0.3 (0.2-1.0) mg/dL AST 56 H (15-37) U/L ALT 90 H (14-63) U/L Alkaline Phosphatase 147 H (46-116) U/L Creatine Kinase 41 (26-276) U/L Troponin I High Sens 15.800 (0-51.000) pg/mL C-Reactive Protein 9.4 H (0.0-0.9) mg/dL B-Natriuretic Peptide 47 (0-100) pg/mL Total Protein 6.5 (6.4-8.2) g/dL Albumin 2.46 L (3.40-5.00) g/dL 08/13/21 Range/Units 12:30 WBC (5.00-10.00) 10^3/uL RBC (3.80-5.50) 10^6/uL Hgb (12.0-16.0) g/dL Hct (37.0-47.0) % MCV (82.0-92.0) fL MCH (27.0-31.0) pg MCHC (32.0-36.0) g/dL RDW (11.5-14.5) % Plt Count (150-400) 10^3/uL MPV (7.4-10.4) fL Immature Gran % (Auto) (0.0-5.0) % Neut % (Auto) (50.0-70.0) % Lymph % (Auto) (20.0-40.0) % Whitman % (Auto) (2.0-8.0) % Eos % (Auto) (1.0-3.0) % Baso % (Auto) (0.0-1.0) % Neut # (Auto) (2.50-7.00) 10^3/uL Lymph # (Auto) (1.00-4.00) 10^3/uL Whitman # (Auto) (0.10-0.80) 10^3/uL Eos # (Auto) (0.10-0.30) 10^3/uL Baso # (Auto) (0.00-0.10) 10^3/uL Immature Gran # (Auto) (0.00-0.50) 10^3/uL ESR PT (9.2-11.2) SEC INR (0.9-1.1) APTT (22.8-31.4) SEC D-Dimer, Quantitative (<400) ng/mL Sodium (136-145) mmol/L Potassium (3.5-5.1) mmol/L Chloride (98-107) mmol/L Carbon Dioxide (21.0-32.0) mmol/L Anion Gap (5-15) mmol/L BUN (7-18) mg/dL Creatinine (0.51-1.17) mg/dL Est Cr Clr Drug Dosing Estimated GFR (MDRD) mL/min Glucose (70-140) mg/dL Lactic Acid 2.2 H (0.4-2.0) mmol/L Calcium (8.7-10.3) mg/dL Total Bilirubin (0.2-1.0) mg/dL AST (15-37) U/L ALT (14-63) U/L Alkaline Phosphatase (46-116) U/L Creatine Kinase (26-276) U/L Troponin I High Sens (0-51.000) pg/mL C-Reactive Protein (0.0-0.9) mg/dL B-Natriuretic Peptide (0-100) pg/mL Total Protein (6.4-8.2) g/dL Albumin (3.40-5.00) g/dL Meds: Medications Generic Name Dose Route Start Last Admin Trade Name Freq PRN Reason Stop Dose Admin Hydromorphone HCl 2 mg 08/13/21 14:15 08/13/21 14:22 Hydromorphone 2 Mg Tab PO 2 mg Q6H PRN Administration Pain Sodium Chloride 50 mls @ 200 mls/min 08/13/21 12:30 Normal Saline IV ASDIRECTED MALENA Nystatin 5 ml 08/13/21 14:15 08/13/21 14:22 Nystatin Susp 100,000 Unit/Ml 5 Ml Ud Cup PO 5 ml ONETIME MALENA Administration Discontinued Medications Generic Name Dose Route Start Last Admin Trade Name Freq PRN Reason Stop Dose Admin Iopamidol 75 ml 08/13/21 12:17 Iopamidol 755 Mg/Ml 75 Ml Bottle IVPUSH 08/13/21 12:18 ONETIME ONE - Radiology Interpretation Free Text/Narrative:: Single view chest Indication: Covid positive Correlation is made with July 28, 2021 Findings: Bilateral infiltrations are slightly increased. There is bibasilar atelectasis. There is abdominal distention. PICC line is no longer seen. Cardiomediastinal contour is stable Impression: Slight increase in bibasilar infiltrates - Re-Assessments/Exams Free Text/Narrative Re-Assessment/Exam: 08/13/21 15:17 Patient's O2 saturations are maintained at 90% on 3 L. Patient is not stenotic. She is able to carry conversation. We discussed maintaining supplemental oxygen for her O2 saturations. We discussed inability to proceed with monoclonal antibody infusion due to oxygen dependence at this time. We will continue with effort care management as this is listed in the patient's chart and also her own wishes and desires. Departure - Departure Time of Disposition: 15:24 Disposition: DC/Tfer to SNF 03 Condition: Good Clinical Impression: Lab test positive for detection of COVID-19 virus, Hypoxic, Hypoxemia requiring supplemental oxygen, Status post below knee amputation of right lower extremity Uncontrolled diabetes mellitus Qualifiers: Diabetes mellitus type: type 2 Glycemic state: with hyperglycemia Qualified Code(s): E11.65 - Type 2 diabetes mellitus with hyperglycemia Depression Qualifiers: Depression Type: unspecified Qualified Code(s): F32.A - Depression, unspecified - Discharge Information Instructions: 10 Things You Can Do to Manage Your COVID-19 Symptoms at Home - [facility] (03/05/2021) Referrals: Rosibel Alvarado MD [Physician] - Maria Esther Castillo MD [Primary Care Provider] - Forms: ED Department Discharge Additional Instructions: 1. Supplemental oxygen at 2 to 3 L. Maintain her O2 saturations at 90%. 2. Patient's directives and desires were once again gone over and she wishes to be for comfort care. She is a DNR/DNI. She does not want invasive treatment. 3. We have discussed the monoclonal antibody infusion criteria with the patient. New FDA guidelines state that the patient is not a candidate if she is requiring oxygen at this time. I have discussed this also with the patient. 4. Patient is also expressing the desire to no longer treat underlying medical conditions as her diabetes and allowing herself to go into a coma and peacefully. I have discussed with treatment for her diabetes and management which has been poorly controlled in the past that she can still have a quite extended lifetime if managed correctly. I would recommend that we have her primary care for discussed these options with her and possibly underlying treatment for depression. I have expressed with her also understanding that she is under control of her own medical decisions and wishes. She states she will likely discuss this further with her family as she feels that is the only reason that she is continuing with her treatment at this time. 5. Currently she is managing with supplemental oxygen and maintaining O2 saturations. She is nontoxic and nonseptic appearing as well as labs indicate this. [facility]. Sepsis Event Note (ED) - Evaluation Sepsis Screening Result: No Definite Risk - Focused Exam Vital Signs: Vital Signs Temp Pulse Resp BP Pulse Ox 08/13/21 14:30 85 L 08/13/21 14:00 91 L 08/13/21 13:30 91 L 08/13/21 11:55 97.4 F 87 20 101/63 79 L - My Orders Last 24 Hours: My Active Orders 08/13/21 11:55 Ang Chest [CT] Stat 08/13/21 12:30 PROCALCITONIN [REF] Stat Sodium Chloride 0.9% [Normal Saline] 50 ml IV ASDIRECTED 08/13/21 14:15 HYDROmorphone [Dilaudid] 2 mg PO Q6H PRN Nystatin [Mycostatin] 5 ml PO ONETIME - Assessment/Plan Last 24 Hours: My Active Orders 08/13/21 11:55 Ang Chest [CT] Stat 08/13/21 12:30 PROCALCITONIN [REF] Stat Sodium Chloride 0.9% [Normal Saline] 50 ml IV ASDIRECTED 08/13/21 14:15 HYDROmorphone [Dilaudid] 2 mg PO Q6H PRN Nystatin [Mycostatin] 5 ml PO ONETIME Assessment:: Covid positive Hypoxia requiring supplemental O2 Poorly controlled diabetes with recent history of right below-knee amputation Depression Plan: 1. Supplemental oxygen at 2 to 3 L. Maintain her O2 saturations at 90%. 2. Patient's directives and desires were once again gone over and she wishes to be for comfort care. She is a DNR/DNI. She does not want invasive treatment. 3. We have discussed the monoclonal antibody infusion criteria with the patient. New FDA guidelines state that the patient is not a candidate if she is requiring oxygen at this time. I have discussed this also with the patient. 4. Patient is also expressing the desire to no longer treat underlying medical conditions as her diabetes and allowing herself to go into a coma and peacefully. I have discussed with treatment for her diabetes and management which has been poorly controlled in the past that she can still have a quite extended lifetime if managed correctly. I would recommend that we have her primary care for discussed these options with her and possibly underlying treatment for depression. I have expressed with her also understanding that she is under control of her own medical decisions and wishes. She states she will likely discuss this further with her family as she feels that is the only reason that she is continuing with her treatment at this time. 5. Currently she is managing with supplemental oxygen and maintaining O2 saturations. She is nontoxic and nonseptic appearing as well as labs indicate this. We [facility].
== END 2021-08-13 16:20 ==
LOC: KA.ED 11:24
DX: U07.1 COVID-19 (principal); R09.02 Hypoxemia; E11.65 Type 2 diabetes mellitus with hyperglycemia; F32.A Depression, unspecified; I10 Essential (primary) hypertension; J45.909 Unspecified asthma, uncomplicated; K21.9 Gastro-esophageal reflux disease without esophagitis; M10.9 Gout, unspecified; E11.40 Type 2 diabetes mellitus with diabetic neuropathy, unspecified; E03.9 Hypothyroidism, unspecified; E66.9 Obesity, unspecified; Z89.611 Acquired absence of right leg above knee; Z91.048 Other nonmedicinal substance allergy status; Z91.018 Allergy to other foods; Z88.5 Allergy status to narcotic agent; Z91.040 Latex allergy status; Z88.2 Allergy status to sulfonamides; Z79.4 Long term (current) use of insulin; Z79.899 Other long term (current) drug therapy
CPT/HCPCS: 36415; 71045; 80053; 82550; 83605; 83880; 84145; 84484; 85025; 85379; 85610; 85730; 86140; 99285; A9270

== ENCOUNTER 2022-02-28 00:03 | Emergency (ER) | payer MEDICAID ==
[2022-02-28] MEDS ORDERED: Clindamycin HCl 150 MG Cap PO ONE (00:43)
[2022-02-28 01:06] LABS: ANION GAP 12.6 mmol/L (5-15); CHLORIDE,CL 107 mmol/L (98-107); SODIUM,NA 143 mmol/L (136-145)
[2022-02-28 01:09] LABS: ESTIMATED GFR 113 mL/min (>=60)
[2022-02-28 06:09] VITALS: BP 172/96; PULSE 89
== END 2022-02-28 02:25 ==
LOC: KA.ED 00:03
DX: L03.314 Cellulitis of groin (principal); E78.00 Pure hypercholesterolemia, unspecified; E11.22 Type 2 diabetes mellitus with diabetic chronic kidney disease; I12.9 Hypertensive chronic kidney disease with stage 1 through stage 4 chronic kidney disease, or unspecified chronic kidney disease; N18.9 Chronic kidney disease, unspecified; K21.9 Gastro-esophageal reflux disease without esophagitis; E03.9 Hypothyroidism, unspecified; E66.9 Obesity, unspecified; Z68.31 Body mass index [BMI] 31.0-31.9, adult; Z91.040 Latex allergy status; Z91.018 Allergy to other foods; Z91.09 Other allergy status, other than to drugs and biological substances; Z88.2 Allergy status to sulfonamides; Z91.048 Other nonmedicinal substance allergy status; Z79.899 Other long term (current) drug therapy
CPT/HCPCS: 36415; 80048; 83605; 85025; 87070; 87075; 87186; 87205; 99283; A9270-GY